=== PATIENT | male | born 1965 | race Caucasian/White ===

== ENCOUNTER → 2020-07-08 09:31 | Outpatient (BNVA) | payer MEDICARE, MEDICAID, SELFPAY | PROVIDERS: PCP Internal Medicine Medical Oncology; Visit Provider Internal Medicine Cardiovascular Disease | DX: I45.6 Pre-excitation syndrome (principal) | CPT/HCPCS: 93005; 99212 ==

== ENCOUNTER 2020-08-31 12:18 | Outpatient (REF) | payer MEDICARE, MEDICAID, SELFPAY ==
[2020-08-31 13:18] LABS: MANUAL DIFF FLAG NO
[2020-08-31 13:37] LABS: Basophils Percent Auto 0.4 % (0-2); Eosinophils Absolute Auto 0.1 X10*3/uL (0.0-0.4); Eosinophils Percent Auto 1.2 % (0-4); Hematocrit 47.8 % (42-52); Hemoglobin 16.1 g/dl (14.0-18.0); Imm Gran Abs Auto 0.04 X10*3/uL (0.00-0.03); Imm Gran Pct Auto 0.5 % (0.0-0.4); Lymphocytes Absolute Auto 2.2 X10*3/uL (1.2-4.9); Mean Corpuscular HGB Conc 33.7 g/dl (31.0-36.0); Mean Corpuscular Volume 89.2 fL (80-98); Mean Platelet Volume 10.8 fL (9.4-12.4); Monocytes Absolute Auto 0.7 X10*3/uL (0.1-1.2); Neutrophils Percent Auto 61.9 % (45-73); Platelet Count 190 X10*3/uL (160-400); Red Blood Count 5.36 X10*6/uL (4.60-5.80); Red Cell Distribution Width 12.1 % (11.0-16.0); White Blood Count 8.1 X10*3/uL (4.8-10.8)
[2020-08-31 14:12] LABS: Alanine Aminotransferase 14 U/L (0-40); Albumin Level 4.7 g/dL (3.5-5.0); Alkaline Phosphatase 82 U/L (39-117); Anion Gap 16 (12-20); Aspartate Amino Transferase 15 U/L (5-37); Bilirubin Total 2.1 mg/dL (0.0-1.0); Blood Urea Nitrogen 24 mg/dL (9-16); Calcium 9.5 mg/dL (8.4-10.2); Carbon Dioxide 27 mmol/L (22-29); Chloride 104 mmol/L (96-108); Cholesterol 181 mg/dL; Estimated Glomerular Filt Rate > 60; Glucose Fasting 86 mg/dL (60-99); HDL Cholesterol 55 mg/dL; LDL Cholesterol Calculated 106 mg/dl; Potassium 4.5 mmol/L (3.3-5.1); Sodium 142 mmol/L (135-145); Total Protein 6.8 g/dL (6.5-8.0); Triglycerides 100 mg/dL
== END 2020-08-31 12:19 | disposition home or self-care (01) ==
LOC: HO.LAB 12:18
PROVIDERS: PCP Internal Medicine Medical Oncology; Visit Provider Internal Medicine Medical Oncology
DX: E78.2 Mixed hyperlipidemia (principal); E66.3 Overweight
CPT/HCPCS: 36415; 80053; 80061; 85025

== ENCOUNTER 2020-12-30 11:49 | Outpatient (REF) | payer MEDICARE, MEDICAID, SELFPAY ==
[2020-12-30 12:56] LABS: MANUAL DIFF FLAG NO
[2020-12-30 13:07] LABS: Basophils Percent Auto 0.6 % (0-2); Eosinophils Absolute Auto 0.1 X10*3/uL (0.0-0.4); Eosinophils Percent Auto 1.6 % (0-4); Hemoglobin 13.8 g/dl (14.0-18.0); Imm Gran Abs Auto 0.02 X10*3/uL (0.00-0.03); Imm Gran Pct Auto 0.3 % (0.0-0.4); Lymphocytes Absolute Auto 2.2 X10*3/uL (1.2-4.9); Lymphocytes Percent Auto 31.9 % (20-40); Mean Corpuscular HGB Conc 32.9 g/dl (31.0-36.0); Mean Corpuscular Hemoglobin 29.5 pg (27.0-33.0); Mean Corpuscular Volume 89.7 fL (80-98); Mean Platelet Volume 10.7 fL (9.4-12.4); Monocytes Absolute Auto 0.8 X10*3/uL (0.1-1.2); Monocytes Percent Auto 11.3 % (2-11); Neutrophils Absolute Auto 3.7 X10*3/uL (2.0-8.3); Neutrophils Percent Auto 54.3 % (45-73); Platelet Count 192 X10*3/uL (160-400); Red Blood Count 4.68 X10*6/uL (4.60-5.80); Red Cell Distribution Width 12.4 % (11.0-16.0); White Blood Count 6.7 X10*3/uL (4.8-10.8)
[2020-12-30 13:33] LABS: Alanine Aminotransferase 18 U/L (0-40); Albumin Level 4.3 g/dL (3.5-5.0); Alkaline Phosphatase 76 U/L (39-117); Anion Gap 10 (12-20); Aspartate Amino Transferase 16 U/L (5-37); Bilirubin Total 1.2 mg/dL (0.0-1.0); Blood Urea Nitrogen 19 mg/dL (9-16); Calcium 9.1 mg/dL (8.4-10.2); Carbon Dioxide 28 mmol/L (22-29); Chloride 108 mmol/L (96-108); Cholesterol 146 mg/dL; Estimated Glomerular Filt Rate > 60; Glucose Fasting 92 mg/dL (60-99); HDL Cholesterol 46 mg/dL; LDL Cholesterol Calculated 87 mg/dl; Potassium 4.3 mmol/L (3.3-5.1); Sodium 142 mmol/L (135-145); Triglycerides 68 mg/dL
== END 2020-12-30 11:50 | disposition home or self-care (01) ==
LOC: HO.LAB 11:49
PROVIDERS: PCP Internal Medicine Medical Oncology; Visit Provider Internal Medicine Medical Oncology
DX: E78.2 Mixed hyperlipidemia (principal); E66.3 Overweight
CPT/HCPCS: 36415; 80053; 80061; 85025

== ENCOUNTER 2021-10-12 09:35 | Outpatient (REF) | payer MEDICARE, MEDICAID, SELFPAY ==
[2021-10-12 10:03] LABS: MANUAL DIFF FLAG NO
[2021-10-12 10:28] LABS: Basophils Percent Auto 0.3 % (0-2); Eosinophils Absolute Auto 0.1 X10*3/uL (0.0-0.4); Eosinophils Percent Auto 1.3 % (0-4); Hematocrit 46.4 % (42.0-52.0); Imm Gran Abs Auto 0.04 X10*3/uL (0.00-0.03); Imm Gran Pct Auto 0.6 % (0.0-0.4); Lymphocytes Absolute Auto 2.1 X10*3/uL (1.2-4.9); Lymphocytes Percent Auto 31.7 % (20-40); Mean Corpuscular HGB Conc 32.3 g/dl (31.0-36.0); Mean Corpuscular Volume 89.7 fL (80.0-98.0); Mean Platelet Volume 10.4 fL (9.4-12.4); Monocytes Absolute Auto 0.7 X10*3/uL (0.1-1.2); Monocytes Percent Auto 9.9 % (2-11); Neutrophils Absolute Auto 3.8 x10*3/uL (2.0-8.3); Neutrophils Percent Auto 56.2 % (45-73); Platelet Count 186 X10*3/uL (160-400); Red Blood Count 5.17 X10*6/uL (4.60-5.80); Red Cell Distribution Width 12.3 % (11.0-16.0); White Blood Count 6.7 X10*3/uL (4.8-10.8)
[2021-10-12 10:48] LABS: Alanine Aminotransferase 20 U/L (0-40); Albumin Level 4.4 g/dL (3.5-5.0); Alkaline Phosphatase 82 U/L (39-117); Anion Gap 13 (12-20); Aspartate Amino Transferase 20 U/L (5-37); Bilirubin Total 0.7 mg/dL (0.0-1.0); Blood Urea Nitrogen 27 mg/dL (9-16); Calcium 9.5 mg/dL (8.4-10.2); Carbon Dioxide 26 mmol/L (22-29); Chloride 104 mmol/L (96-108); Cholesterol 187 mg/dL; Estimated Glomerular Filt Rate > 60; Glucose Fasting 100 mg/dL (60-99); HDL Cholesterol 39 mg/dL; LDL Cholesterol Calculated 119 mg/dl; Potassium 4.6 mmol/L (3.3-5.1); Sodium 138 mmol/L (135-145); Total Protein 6.6 g/dL (6.5-8.0); Triglycerides 146 mg/dL
[2021-10-12 11:12] LABS: Free T4 (Free Thyroxine) 1.28 ng/dL (0.71-1.85); Prostate Specific Antigen 0.36 ng/mL (<0.05-4.0); Thyroid Stimulating Hormone 0.72 uIU/mL (0.32-4.0)
== END 2021-10-12 09:36 | disposition home or self-care (01) ==
LOC: HO.LAB 09:35
PROVIDERS: PCP Internal Medicine Medical Oncology; Visit Provider Internal Medicine Medical Oncology
DX: Z12.5 Encounter for screening for malignant neoplasm of prostate (principal); E78.2 Mixed hyperlipidemia; E66.3 Overweight
CPT/HCPCS: 36415; 80053; 80061; 84153; 84439; 84443; 85025

== ENCOUNTER 2022-02-22 10:15 | Outpatient (REF) | payer MEDICARE, MEDICAID, SELFPAY ==
[2022-02-22 13:46] LABS: MANUAL DIFF FLAG NO
[2022-02-22 14:03] LABS: Basophils Percent Auto 0.3 % (0-2); Eosinophils Absolute Auto 0.1 X10*3/uL (0.0-0.4); Eosinophils Percent Auto 1.4 % (0-4); Hematocrit 47.4 % (42.0-52.0); Hemoglobin 15.7 g/dl (14.0-18.0); Imm Gran Abs Auto 0.03 X10*3/uL (0.00-0.03); Imm Gran Pct Auto 0.4 % (0.0-0.4); Lymphocytes Absolute Auto 2.1 X10*3/uL (1.2-4.9); Lymphocytes Percent Auto 27.6 % (20-40); Mean Corpuscular HGB Conc 33.1 g/dl (31.0-36.0); Mean Corpuscular Hemoglobin 29.8 pg (27.0-33.0); Mean Corpuscular Volume 90.1 fL (80.0-98.0); Mean Platelet Volume 10.8 fL (9.4-12.4); Monocytes Absolute Auto 0.8 X10*3/uL (0.1-1.2); Monocytes Percent Auto 9.8 % (2-11); Neutrophils Absolute Auto 4.6 x10*3/uL (2.0-8.3); Neutrophils Percent Auto 60.5 % (45-73); Platelet Count 207 X10*3/uL (160-400); Red Blood Count 5.26 X10*6/uL (4.60-5.80); Red Cell Distribution Width 12.2 % (11.0-16.0); White Blood Count 7.6 X10*3/uL (4.8-10.8)
[2022-02-22 14:35] LABS: Alanine Aminotransferase 24 U/L (0-40); Albumin Level 4.6 g/dL (3.5-5.0); Alkaline Phosphatase 86 U/L (39-117); Anion Gap 16 (12-20); Aspartate Amino Transferase 18 U/L (5-37); Bilirubin Total 1.4 mg/dL (0.0-1.0); Blood Urea Nitrogen 20 mg/dL (9-16); Calcium 9.6 mg/dL (8.4-10.2); Carbon Dioxide 26 mmol/L (22-29); Chloride 104 mmol/L (96-108); Cholesterol 186 mg/dL; Estimated Glomerular Filt Rate > 60; Glucose Fasting 88 mg/dL (60-99); HDL Cholesterol 50 mg/dL; LDL Cholesterol Calculated 123 mg/dl; Sodium 141 mmol/L (135-145); Total Protein 6.7 g/dL (6.5-8.0); Triglycerides 68 mg/dL
== END 2022-02-22 10:16 | disposition home or self-care (01) ==
LOC: HO.10HDL 10:15
PROVIDERS: Visit Provider Internal Medicine Medical Oncology
DX: E78.2 Mixed hyperlipidemia (principal); K21.9 Gastro-esophageal reflux disease without esophagitis
CPT/HCPCS: 36415; 80053; 80061; 85025

== ENCOUNTER 2022-06-23 11:21 | Outpatient (REF) | payer MEDICARE, MEDICAID, SELFPAY ==
[2022-06-23 11:32] LABS: MANUAL DIFF FLAG NO
[2022-06-23 12:28] LABS: Basophils Percent Auto 0.4 % (0-2); Eosinophils Absolute Auto 0.1 X10*3/uL (0.0-0.4); Eosinophils Percent Auto 1.2 % (0-4); Hematocrit 49.2 % (42.0-52.0); Hemoglobin 16.3 g/dl (14.0-18.0); Imm Gran Abs Auto 0.02 X10*3/uL (0.00-0.03); Imm Gran Pct Auto 0.3 % (0.0-0.4); Lymphocytes Absolute Auto 2.1 X10*3/uL (1.2-4.9); Lymphocytes Percent Auto 30.9 % (20-40); Mean Corpuscular HGB Conc 33.1 g/dl (31.0-36.0); Mean Corpuscular Hemoglobin 29.7 pg (27.0-33.0); Mean Corpuscular Volume 89.8 fL (80.0-98.0); Mean Platelet Volume 10.4 fL (9.4-12.4); Monocytes Absolute Auto 0.7 X10*3/uL (0.1-1.2); Monocytes Percent Auto 10.7 % (2-11); Neutrophils Absolute Auto 3.9 x10*3/uL (2.0-8.3); Neutrophils Percent Auto 56.5 % (45-73); Platelet Count 205 X10*3/uL (160-400); Red Blood Count 5.48 X10*6/uL (4.60-5.80); Red Cell Distribution Width 12.3 % (11.0-16.0); White Blood Count 6.9 X10*3/uL (4.8-10.8)
[2022-06-23 12:44] LABS: Alanine Aminotransferase 23 U/L (0-40); Albumin Level 4.6 g/dL (3.5-5.0); Alkaline Phosphatase 86 U/L (39-117); Anion Gap 13 (12-20); Aspartate Amino Transferase 19 U/L (5-37); Bilirubin Total 2.2 mg/dL (0.0-1.0); Blood Urea Nitrogen 22 mg/dL (9-16); Calcium 9.6 mg/dL (8.4-10.2); Carbon Dioxide 29 mmol/L (22-29); Chloride 104 mmol/L (96-108); Cholesterol 198 mg/dL; Estimated Glomerular Filt Rate > 60; Glucose Fasting 93 mg/dL (60-99); HDL Cholesterol 57 mg/dL; LDL Cholesterol Calculated 125 mg/dl; Potassium 4.5 mmol/L (3.3-5.1); Sodium 141 mmol/L (135-145); Total Protein 6.5 g/dL (6.5-8.0); Triglycerides 84 mg/dL
== END 2022-06-23 11:22 | disposition home or self-care (01) ==
LOC: HO.LAB 11:21
PROVIDERS: PCP Internal Medicine Medical Oncology; Visit Provider Internal Medicine Medical Oncology
DX: E78.2 Mixed hyperlipidemia (principal)
CPT/HCPCS: 36415; 80053; 80061; 85025

== ENCOUNTER 2022-11-08 12:05 | Outpatient (REF) | payer MEDICARE, MEDICAID, SELFPAY ==
[2022-11-08 12:20] LABS: MANUAL DIFF FLAG NO
[2022-11-08 12:59] LABS: Basophils Percent Auto 0.2 % (0-2); Eosinophils Absolute Auto 0.1 X10*3/uL (0.0-0.4); Eosinophils Percent Auto 0.9 % (0-4); Hematocrit 43.2 % (42.0-52.0); Hemoglobin 14.3 g/dl (14.0-18.0); Imm Gran Abs Auto 0.07 X10*3/uL (0.00-0.03); Imm Gran Pct Auto 0.7 % (0.0-0.4); Lymphocytes Absolute Auto 2.4 X10*3/uL (1.2-4.9); Lymphocytes Percent Auto 25.1 % (20-40); Mean Corpuscular HGB Conc 33.1 g/dl (31.0-36.0); Mean Corpuscular Hemoglobin 29.9 pg (27.0-33.0); Mean Corpuscular Volume 90.2 fL (80.0-98.0); Mean Platelet Volume 10.5 fL (9.4-12.4); Monocytes Percent Auto 10.2 % (2-11); Neutrophils Percent Auto 62.9 % (45-73); Platelet Count 230 X10*3/uL (160-400); Red Blood Count 4.79 X10*6/uL (4.60-5.80); Red Cell Distribution Width 12.5 % (11.0-16.0); White Blood Count 9.5 X10*3/uL (4.8-10.8)
[2022-11-08 13:27] LABS: Alanine Aminotransferase 17 U/L (0-40); Albumin Level 4.3 g/dL (3.5-5.0); Alkaline Phosphatase 76 U/L (39-117); Anion Gap 13 (12-20); Aspartate Amino Transferase 16 U/L (5-37); Bilirubin Total 1.4 mg/dL (0.0-1.0); Blood Urea Nitrogen 22 mg/dL (9-16); Calcium 9.3 mg/dL (8.4-10.2); Carbon Dioxide 28 mmol/L (22-29); Chloride 111 mmol/L (96-108); Cholesterol 162 mg/dL; Estimated Glomerular Filt Rate > 60; Glucose Fasting 82 mg/dL (60-99); HDL Cholesterol 45 mg/dL; LDL Cholesterol Calculated 101 mg/dl; Potassium 3.8 mmol/L (3.3-5.1); Sodium 148 mmol/L (135-145); Total Protein 6.2 g/dL (6.5-8.0); Triglycerides 81 mg/dL
== END 2022-11-08 12:06 | disposition home or self-care (01) ==
LOC: HO.LAB 12:05
PROVIDERS: PCP Internal Medicine Medical Oncology; Visit Provider Internal Medicine Medical Oncology
DX: E78.2 Mixed hyperlipidemia (principal); K21.9 Gastro-esophageal reflux disease without esophagitis; E66.3 Overweight
CPT/HCPCS: 36415; 80053; 80061; 85025

== ENCOUNTER 2023-04-03 15:18 | Outpatient (REF) | payer MEDICARE, MEDICAID, SELFPAY ==
[2023-04-03 15:41] LABS: MANUAL DIFF FLAG NO
[2023-04-03 15:57] LABS: Basophils Percent Auto 0.6 % (0-2); Eosinophils Percent Auto 0.6 % (0-4); Hematocrit 46.5 % (42.0-52.0); Hemoglobin 15.5 g/dl (14.0-18.0); Imm Gran Abs Auto 0.04 X10*3/uL (0.00-0.03); Imm Gran Pct Auto 0.6 % (0.0-0.4); Lymphocytes Absolute Auto 1.9 X10*3/uL (1.2-4.9); Lymphocytes Percent Auto 29.7 % (20-40); Mean Corpuscular HGB Conc 33.3 g/dl (31.0-36.0); Mean Corpuscular Hemoglobin 29.8 pg (27.0-33.0); Mean Corpuscular Volume 89.3 fL (80.0-98.0); Mean Platelet Volume 10.6 fL (9.4-12.4); Monocytes Absolute Auto 0.7 X10*3/uL (0.1-1.2); Monocytes Percent Auto 10.3 % (2-11); Neutrophils Absolute Auto 3.7 x10*3/uL (2.0-8.3); Neutrophils Percent Auto 58.2 % (45-73); Platelet Count 180 X10*3/uL (160-400); Red Blood Count 5.21 X10*6/uL (4.60-5.80); Red Cell Distribution Width 12.4 % (11.0-16.0); White Blood Count 6.3 X10*3/uL (4.8-10.8)
[2023-04-03 16:29] LABS: Alanine Aminotransferase 16 U/L (0-40); Albumin Level 4.5 g/dL (3.5-5.0); Alkaline Phosphatase 86 U/L (39-117); Aspartate Amino Transferase 16 U/L (5-37); Bilirubin Direct 0.3 mg/dL (0.0-0.5); Bilirubin Total 0.9 mg/dL (0.0-1.0); C Reactive Protein 0.26 mg/dL (< or = 0.50); Total Protein 6.8 g/dL (6.5-8.0)
[2023-04-03 16:43] LABS: Thyroid Stimulating Hormone 1.38 uIU/mL (0.32-4.0)
[2023-04-03 17:01] LABS: Erythrocyte Sedimentation Rate 1 MM/HR (0-15)
[2023-04-04 13:56] LABS: Leukocytes Stool Qualitative NEGATIVE (NEGATIVE)
[2023-04-04 15:28] LABS: TSH reflex Free T4 1.36 uIU/mL (0.32-4.0)
[2023-04-04 15:32] LABS: CDiff Gene PCR NEGATIVE (Negative)
[2023-04-05 22:39] LABS: Gliadin Deamidated IgA Ab <1.0 U/mL; Gliadin Deamidated IgG Ab 3.4 U/mL; Transglutaminase Ab IgG <1.0 U/mL; Transglutaminase IgA <1.0 U/mL
[2023-04-07 12:38] LABS: Endomysial IgA Antibody Negative (Negative)
[2023-04-10 10:29] LABS: Immunoglobulin A <5 mg/dL (47-310)
[2023-04-10 21:03] LABS: Calprotectin, Fecal 2780 mcg/g
== END 2023-04-03 15:19 | disposition home or self-care (01) ==
LOC: HO.LAB 15:18
PROVIDERS: PCP Internal Medicine; Visit Provider Internal Medicine
DX: R19.4 Change in bowel habit (principal); R19.7 Diarrhea, unspecified
CPT/HCPCS: 36415; 80076; 82784; 83993; 84443; 85025; 85652; 86140; 86231; 86258; 86364; 87493; 87507; 89055

== ENCOUNTER 2023-04-10 13:42 | Outpatient (REF) | payer MEDICARE, MEDICAID, SELFPAY ==
[2023-04-10 15:14] LABS: Adenovirus F 40/41 Not Detected (Not Detect.); Astrovirus Not Detected (Not Detect.); Cryptosporidium Not Detected (Not Detect.); Cyclospora cayetanensis Not Detected (Not Detect.); E. coli EAEC Not Detected (Not Detect.); E. coli EPEC Detected (Not Detect.); E. coli ETEC Not Detected (Not Detect.); E. coli STEC Not Detected (Not Detect.); Entamoeba histolytica Not Detected (Not Detect.); Giardia lamblia Not Detected (Not Detect.); Norovirus GI/GII Not Detected (Not Detect.); Plesiomonas shigelloides Not Detected (Not Detect.); Rotavirus A Not Detected (Not Detect.); Salmonella Not Detected (Not Detect.); Sapovirus Not Detected (Not Detect.); Shigella sp./EIEC Not Detected (Not Detect.); Vibrio Not Detected (Not Detect.); Vibrio Cholerae Not Detected (Not Detect.); Yersinia enterocolitica Not Detected (Not Detect.)
[2023-04-10 15:26] LABS: Campylobacter Detected (Not Detect.)
[2023-04-10 17:01] LABS: CDiff Gene PCR NEGATIVE (Negative)
[2023-04-10 17:41] LABS: Leukocytes Stool Qualitative NEGATIVE (NEGATIVE)
[2023-04-14 21:59] LABS: Calprotectin, Fecal 946 mcg/g
== END 2023-04-10 13:43 | disposition home or self-care (01) ==
LOC: HO.LNP 13:42
PROVIDERS: Visit Provider Internal Medicine
DX: R19.4 Change in bowel habit (principal); R19.7 Diarrhea, unspecified
CPT/HCPCS: 83993; 85048; 87493; 87507; 89055

== ENCOUNTER → 2023-04-26 13:07 | Outpatient (REF) | payer MEDICARE, MEDICAID, SELFPAY ==
--- NOTE | 2023-04-26 13:12 | ECG_ITS ---
Test Reason : prolonged qt Blood Pressure : / mmHG Vent. Rate : 085 BPM Atrial Rate : 085 BPM P-R Int : 146 ms QRS Dur : 084 ms QT Int : 362 ms P-R-T Axes : 074 032 036 degrees QTc Int : 430 ms Normal sinus rhythm Increased R/S ratio in V1, consider early transition or posterior infarct Abnormal ECG No previous ECGs available Referred By: Nicola Magana Electronically Signed By:SYEDA DELGADO MD
== END ==
LOC: HO.CARD 13:07
PROVIDERS: PCP Internal Medicine Medical Oncology; Visit Provider Internal Medicine Medical Oncology
DX: R94.31 Abnormal electrocardiogram [ECG] [EKG] (principal)
CPT/HCPCS: 93005

== ENCOUNTER 2023-04-30 12:22 | Day surgery (SDC) | payer MEDICARE, MEDICAID, SELFPAY ==
[2023-04-26 11:31] VITALS: BMI 28.6
--- NOTE | 2023-04-27 13:35 | P.CONAN_ITS ---
Documented by User: Petra Roman NP 04/27/23 13:36 HPI - Anesthesia Eval Consult details Narrative: 57yo M for Upper Endoscopy and Colonoscopy WPW PMFSH Active Problems Active Problems: All Active Problems (Updated 04/25/23 @ 20:53 by Emma Joel RN) WPW (Rvtmh-Zxykkwbza-Xfebl syndrome) (Acute) Past Medical History Medical History Prieto esophagus Anxiety Cognitive impairment, mild, so stated Hyperlipemia Hiatal hernia with GERD WPW (Drgqx-Oxfzdwtmn-Yrdqd syndrome) Family History Family History (Updated 07/07/20 @ 10:15 by CHEYENNE Nichols) Father No problems noted. Mother No problems noted. Surgical History Surgical History History of esophagogastroduodenoscopy (EGD) History of eyelid surgery History of bunionectomy History of tonsillectomy and adenoidectomy Social History (Updated 07/08/20 @ 09:39 by CHEYENNE Nichols) Patient Tobacco Use Status: Never used Tobacco Are you DNR?: No Advance Directives: No Advance Directives Information Provided: Yes Meds Allergies Allergy/AdvReac Type Severity Reaction Status Date / Time No Known Allergies Allergy Verified 04/30/23 12:33 [No Known Allergies*] Home Medications Medication Instructions Recorded Confirmed Last Taken Type omeprazole 20 mg capsule,delayed 20 mg PO DAILY 07/08/20 04/25/23 04/30/23 History release simvastatin 10 mg tablet 10 mg PO DAILY 07/08/20 04/30/23 04/30/23 History triamcinolone acetonide 0.5 % appl topical DAILY 07/08/20 Unknown History topical cream quetiapine 100 mg tablet 100 mg PO DAILY 04/25/23 04/30/23 04/30/23 History Exam Height,Weight and Vital Signs: Height 5 ft 9 in Weight 87.997 kg Pertinent Lab Results Pertinent Lab Results: Laboratory Tests 11/08/22 11/08/22 11/08/22 12:19 12:19 12:19 WBC Hgb Hct Plt Count Sodium 148 H Potassium 3.8 Chloride 111 H Carbon Dioxide 28 BUN 22 H Creatinine 0.81 04/03/23 04/03/23 04/03/23 15:38 15:38 15:38 WBC 6.3 Hgb 15.5 Hct 46.5 Plt Count 180 Sodium Potassium Chloride Carbon Dioxide BUN Creatinine Narrative Narrative: EKG 04/2023 Vent. Rate : 085 BPM Atrial Rate : 085 BPM P-R Int : 146 ms QRS Dur : 084 ms QT Int : 362 ms P-R-T Axes : 074 032 036 degrees QTc Int : 430 ms Normal sinus rhythm Increased R/S ratio in V1, consider early transition or posterior infarct Abnormal ECG No previous ECGs available Assessment and Plan Assessment Anesthesia Assessment: Chart Reviewed Documented by User: Paulie Nguyen MD 05/03/23 16:39 HPI - Anesthesia Eval Consult details Narrative: 57yo M for Upper Endoscopy and Colonoscopy WPW Saw cardiology in the past , as per cardiology no intervention at that time patient asymptomatic . [facility] Past Medical History Medical History Prieto esophagus Anxiety Cognitive impairment, mild, so stated Hyperlipemia Hiatal hernia with GERD WPW (Srvtm-Orhntqmka-Xqkzc syndrome) Family History Family History (Updated 07/07/20 @ 10:15 by CHEYENNE Nichols) Father No problems noted. Mother No problems noted. Family history of problems with anesthesia: No Surgical History Surgical History History of esophagogastroduodenoscopy (EGD) History of eyelid surgery History of bunionectomy History of tonsillectomy and adenoidectomy History of Problems with Anesthesia: No Social History (Updated 07/08/20 @ 09:39 by CHEYENNE Nichols) Patient Tobacco Use Status: Never used Tobacco Are you DNR?: No Advance Directives: No Advance Directives Information Provided: Yes Meds Allergies Allergy/AdvReac Type Severity Reaction Status Date / Time No Known Allergies Allergy Verified 04/30/23 12:33 [No Known Allergies*] Home Medications Medication Instructions Recorded Confirmed Last Taken Type omeprazole 20 mg capsule,delayed 20 mg PO DAILY 07/08/20 04/25/23 04/30/23 History release simvastatin 10 mg tablet 10 mg PO DAILY 07/08/20 04/30/23 04/30/23 History triamcinolone acetonide 0.5 % appl topical DAILY 07/08/20 Unknown History topical cream quetiapine 100 mg tablet 100 mg PO DAILY 04/25/23 04/30/23 04/30/23 History Exam Airway Mallampati Class: IV Loose/Missing/Broken Teeth: Yes Assessment and Plan Assessment Anesthesia Assessment: Anesthesia Plan Discussed Final Anesthetic Review Family History of Problems with Anesthesia: No History of Problems with Anesthesia: No NPO: Yes ASA Class: III Final Preanesthetic Review: Meds/Allgs Chart Reviewed, Consent Obtained/Reviewed and Anes Risks/Benef Reviewed Patient Risk: Intermediate Procedure Risk: Intermediate Anesthetic Plan Anesthetic Plan: MAC: and Agree w/ Assess. and Plan Disposition: Standard PACU
[2023-04-30 12:26] VITALS: BMI 28.1
[2023-04-30] MEDS: Lactated Ringers 1,000 ML 100 ML IVCONT (12:48)
[2023-04-30 12:58] VITALS: BP 117/83; PULSE 92; RESP 16; TEMP 36.1; O2SAT 99
--- NOTE | 2023-04-30 14:45 | PC.NURSE ---
Report given to Luis ANNE (PACU)
[2023-04-30 16:17] VITALS: BP 113/72; PULSE 99; RESP 15; TEMP 36.4; O2SAT 98
--- NOTE | 2023-04-30 16:18 | PM.OP ---
Brief Operative Note Date of Service: 04/30/23 Pre-op diagnosis: Prieto's, Diarrhea Post-op diagnosis: other (Same, Hiatal hernia, R/O Celiac disease, R/O microscopic colitis) Procedure: EGD with biopsies, Colonoscopy to the cecum and TI with biopsies Surgeon: Nicloa Mandujano MD Anesthesia: MAC Was an Regulatory Affairs Analyst used for this Procedure?: No Estimated blood loss (mL): 2.0 Pathology: other (A. Descending duodenum B. EG Junction at 37cm C. Ascending colon D. Descending colon) Condition: stable Disposition: PACU
[2023-04-30 16:29] VITALS: BP 118/86; PULSE 99; RESP 16; TEMP 36.3; O2SAT 97
--- NOTE | 2023-05-01 01:25 | OP_ITS ---
DATE OF SERVICE: 04/30/2023 SURGEON: Nicola Mandujano MD INDICATIONS: The patient presents for evaluation of gastroesophageal reflux, Prieto's esophagus, and previous diarrhea. Full consent has been obtained from him for this, including risks of bleeding and perforation. PREOPERATIVE DIAGNOSIS: Gastroesophageal reflux, Prieto's esophagus, diarrhea. POSTOPERATIVE DIAGNOSIS: Gastroesophageal reflux, Prieto's esophagus, diarrhea, hiatal hernia, rule out celiac disease, rule out microscopic colitis, sigmoid diverticulosis, and internal hemorrhoids. PROCEDURE PERFORMED: Esophagogastroduodenoscopy with biopsies, and colonoscopy to the cecum and terminal ileum with biopsies. ESTIMATED BLOOD LOSS: COMPLICATIONS: ANESTHESIA: Medication Used: Monitored anesthesia care. ASSISTANTS: SPECIMENS: DESCRIPTION OF PROCEDURE: The patient was placed in the left lateral decubitus position. The Olympus video gastroscope was passed in the posterior oropharynx and upper esophagus under direct vision. The scope was passed slowly to the distal esophagus. The gastroesophageal junction appeared at 37 cm. There was evidence of small, less than 1 cm, areas of Prieto's mucosa. There was no esophagitis nor any lesions. The scope entered the stomach. There was a small hiatal hernia. The scope was advanced to pylorus and the duodenum was cannulated to the descending portion. The duodenum including the bulb appeared normal without mass or ulceration. Biopsies were obtained from the descending duodenum. The scope was withdrawn back in the stomach. The gastric antrum and body appeared normal with good peristalsis. There was no sign of any gastritis nor ulcer disease. The scope was retroflexed, visualizing the proximal stomach carefully, which appeared normal, without mass or ulceration. The scope was straightened and withdrawn back into the esophagus. Multiple biopsies were obtained at the EG junction at 37 cm. Proximal to this, the esophageal mucosa appeared normal. The scope was withdrawn from the patient. He was turned around for the colonoscopy. The digital rectal exam revealed no abnormalities. The Olympus video pediatric colonoscope was entered into the rectum and advanced easily to the cecum. Once in the cecum, I did identify normal-appearing cecal pouch with appendiceal orifice and a normal-appearing ileocecal valve. The terminal ileum was cannulated and appeared normal. Scope was withdrawn back in the colon. The entire cecum and ileocecal valve appeared normal. The scope was slowly withdrawn assessing all mucosal surfaces carefully. Preparation was excellent. I did not visualize any sign of polyps, colitis, nor angiodysplasia. There was a mild amount of sigmoid diverticulosis. Random biopsies were obtained in the ascending and descending colon. In the rectum, scope was retroflexed, visualizing internal hemorrhoids, but no other pathology. The rectal mucosa appeared normal. The scope was straightened and withdrawn from the patient. He tolerated both procedures well and was returned to the recovery area in stable condition. IMPRESSION: 1. History of Prieto's esophagus, rule out dysplasia. 2. Rule out celiac disease. 3. Hiatal hernia. 4. Rule out microscopic colitis. 5. Diverticulosis. 6. Internal hemorrhoids. PLAN: The results of the biopsies will be checked. He was advised not to use any aspirin and NSAIDs for 1 week. He was advised to continue his daily omeprazole, as he does report that is working well for him in regard to his reflux. Given the family history of colon cancer in at least two aunts at relatively young ages, I would recommend a repeat colonoscopy in 5 years. I would also recommend a repeat upper endoscopy at that time as well in regard to the smaller area of Prieto's esophagus. He was advised not to use any aspirin or NSAIDs for 1 week. In regard to the previous diarrhea, he does report that has completely resolved after the 3-day course of azithromycin for a treatment of the positive GI panel for Campylobacter. He reports that he is no longer having any significant diarrhea nor urgency. Therefore, at this point, he will see me on a p.r.n. basis. This has been discussed with his mother. MD NAGI Chvaez/ENOCH / [phone] STAR
== END 2023-04-30 16:50 | disposition home or self-care (01) ==
PROVIDERS: PCP Internal Medicine Medical Oncology; Visit Provider Internal Medicine
PROC: (CPT 43239; principal; 2023-04-30 13:50)
DX: K22.70 Barrett's esophagus without dysplasia (principal); K44.9 Diaphragmatic hernia without obstruction or gangrene; K21.9 Gastro-esophageal reflux disease without esophagitis; R19.4 Change in bowel habit; R19.5 Other fecal abnormalities; K57.30 Diverticulosis of large intestine without perforation or abscess without bleeding; K64.8 Other hemorrhoids; E78.5 Hyperlipidemia, unspecified; I45.6 Pre-excitation syndrome; G31.84 Mild cognitive impairment of uncertain or unknown etiology; Z79.899 Other long term (current) drug therapy
CPT/HCPCS: 43239; 45380; 88305; 88307; J2704; J3010

== ENCOUNTER 2023-05-26 19:53 | Emergency (ER) | payer MEDICARE, MEDICAID, SELFPAY ==
[2023-05-26 20:07] VITALS: BP 172/100; PULSE 111; O2SAT 97
[2023-05-26 20:11] VITALS: BMI 35.0
[2023-05-26 20:36] VITALS: BP 139/91; PULSE 99; RESP 16; TEMP 36.7; O2SAT 97
[2023-05-26 21:10] LABS: MANUAL DIFF FLAG NO
--- NOTE | 2023-05-26 21:12 | MHC.EDTECH ---
Brought patient a pitcher with apple juice and a few kya crackers.
[2023-05-26 21:20] LABS: Basophils Percent Auto 0.2 % (0-2); Eosinophils Absolute Auto 0.1 X10*3/uL (0.0-0.4); Eosinophils Percent Auto 0.8 % (0-4); Hematocrit 43.1 % (42.0-52.0); Hemoglobin 14.8 g/dl (14.0-18.0); Imm Gran Abs Auto 0.03 X10*3/uL (0.00-0.03); Imm Gran Pct Auto 0.3 % (0.0-0.4); Lymphocytes Absolute Auto 1.9 X10*3/uL (1.2-4.9); Lymphocytes Percent Auto 19.6 % (20-40); Mean Corpuscular HGB Conc 34.3 g/dl (31.0-36.0); Mean Corpuscular Hemoglobin 29.8 pg (27.0-33.0); Mean Corpuscular Volume 86.7 fL (80.0-98.0); Mean Platelet Volume 10.5 fL (9.4-12.4); Monocytes Absolute Auto 0.9 X10*3/uL (0.1-1.2); Neutrophils Absolute Auto 6.7 x10*3/uL (2.0-8.3); Neutrophils Percent Auto 70.1 % (45-73); Platelet Count 199 X10*3/uL (160-400); Red Blood Count 4.97 X10*6/uL (4.60-5.80); Red Cell Distribution Width 12.6 % (11.0-16.0); White Blood Count 9.5 X10*3/uL (4.8-10.8)
[2023-05-26 21:27] LABS: Alanine Aminotransferase 24 U/L (0-40); Albumin Level 4.3 g/dL (3.5-5.0); Alkaline Phosphatase 92 U/L (39-117); Anion Gap 15 (12-20); Aspartate Amino Transferase 22 U/L (5-37); Bilirubin Total 0.7 mg/dL (0.0-1.0); Blood Urea Nitrogen 26 mg/dL (9-16); Calcium 9.4 mg/dL (8.4-10.2); Carbon Dioxide 24 mmol/L (22-29); Chloride 109 mmol/L (96-108); Creatinine Clr Calc Pharmacy 97.7; Estimated Glomerular Filt Rate > 60; Glucose Random 101 mg/dL (60-115); Sodium 144 mmol/L (135-145); Total Protein 6.6 g/dL (6.5-8.0)
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
[2023-05-26 21:46] LABS: Ethanol < 10 mg/dL
[2023-05-26 22:08] LABS: Amphetamine Screen Urine Not Detected (Not Detect); Barbiturates, Urine Not Detected (Not Detect); Benzodiazepines Screen Urine Not Detected (Not Detect); Cannabinoid Screen Urine Not Detected (Not Detect); Cocaine Screen Urine Not Detected (Not Detect); Fentanyl, urine Not Detected (Not Detect); Opiate Screen Urine Not Detected (Not Detect); Phencyclidine Screen Urine Not Detected (Not Detect)
[2023-05-27 06:42] VITALS: BP 142/87; PULSE 96; RESP 14; TEMP 36.4; O2SAT 98
--- NOTE | 2023-05-27 12:26 | PC.NURSE ---
pt seen by Care Team. he denies SI/HI at this time, 1:1 sitter at bedside. will continue to observe.
[2023-05-27] MEDS: Acetaminophen 325 MG TABLET 650 MG PO (13:14)
--- NOTE | 2023-05-27 13:16 | PC.NURSE ---
pt requested medication for 5/10 headache. tylenol given as documented. 1:1 sitter at bedside. pt denies si/hi. pt eating lunch at this time.
--- NOTE | 2023-05-27 13:52 | MHC.EDTECH ---
Gave patient warm blanket.
--- NOTE | 2023-05-27 13:53 | MHC.EDTECH ---
Brought patient snack and tami christopher.
--- NOTE | 2023-05-27 14:29 | PC.NURSE ---
pt cleared by Care Team and is now Case Management. pt aware of plan
--- NOTE | 2023-05-27 16:00 | PC.NURSE ---
pt cleared for discharge, his clothes returned to him, and he was picked up by his stepmother.
--- NOTE | 2023-05-27 16:13 | MHC.CM.PN ---
CM RECEIVED A CONSULT AND SPOKE TO ED PROVIDER WHO INDICATED THE PSYCHIATRIST FELT IT WOULD BE BENEFICIAL TO SPEAK WITH THE FAMILY ABOUT GUARDIANSHIP AND OTHER RESOURCES. THERESA CALLED PTS MOTHER, JEANNIE [phone] WHO REPORTED SHE HAD GUARDIANSHIP OVER HER DAUGHTER WHO IS DEAF AND BLIND AND HER WOULD TAKE GUARDIANSHIP OVER THE PT IF HE WERE TO BE DEEMED INCAPACITATED, HOWEVER HE IS NOT. SHE REPORTS THE PT WAS CONNECTED WITH [facility] WHEN HE WAS YOUNGER, HOWEVER REFUSED TO PARTICIPATE IN ANY OF THEIR PROGRAMS SO WAS DISCHARGED. SHE REPORTS THEY CAN RESUME SERVICES IF PT EVER NEEDED THEM OR AGREED TO USE SERVICES. JEANNIE REPORTS THEY DO KNOW THE RESOURCES AND STEPS TO GET GUARDIANSHIP, SHE SAYS THE PT HAS USED SI A [place] BEFORE WHEN HE DOES NOT GET HIS WAY AND SHE TOLD HIM IF HE SAID IT AGAIN THEY WOULD CALL EMS. SHE SAYS SHE IS MORE CONCERNED ABOUT AN UPDATE FROM A PSYCH PROVIDER OR THE CRISIS TEAM. SHE WAS INFORMED THEY WOULD UPDATE HER. JEANNIE'S REQUEST FOR UPDATES FROM PROVIDERS WAS SENT TO THE ED
== END 2023-05-27 16:03 | disposition home or self-care (01) ==
PROVIDERS: Emergency Provider Emergency Medicine
DX: R45.851 Suicidal ideations (principal); F41.9 Anxiety disorder, unspecified; G31.84 Mild cognitive impairment of uncertain or unknown etiology; R51.9 Headache, unspecified; E78.5 Hyperlipidemia, unspecified; I45.6 Pre-excitation syndrome; Z79.02 Long term (current) use of antithrombotics/antiplatelets; Z79.899 Other long term (current) drug therapy
CPT/HCPCS: 36415; 80053; 80307; 85025; 99285; S9485

== ENCOUNTER → 2024-01-30 08:37 | Outpatient (REF) | payer MEDICARE, MEDICAID, SELFPAY ==
--- NOTE | 2024-01-30 08:43 | CA_ITS ---
Transthoracic Echocardiogram Patient (Last, First, Middle): Bridger Castaneda R Gender: Male Date of : 1965 Age: 58 Procedure Date: 01/30/2024 Procedure Type: Transthoracic Echocardiogram Location: OP Height: 175.26 cm Weight: 96.62 kg BSA: 2.12 m2 Heart Rate: bpm BP: 132 / 90 mmHg Ui Software Engineer: JEANNIE Referring MD: Nicola Magana MD Burning Machine Operator: Rohan Burns MD Symptoms: R07.9 CHEST PAIN Study Quality: Fair ECG Rhythm: Sinus Conclusions: - Essentially normal study Findings Left Ventricle Normal left ventricular size, thickness, and systolic function. The visually estimated ejection fraction is between 60-65%. Spectral Doppler is indicative of a normal filling pattern. Right Ventricle Normal right ventricular cavity size and systolic function. Atria Both atria are normal in size. There is no evidence of interatrial shunt. Aortic Valve Normal aortic valve structure and function. There is no aortic valve stenosis. There is no aortic valve regurgitation. Mitral Valve Normal mitral valve structure and function. There is trace mitral valve regurgitation. There is no mitral valve stenosis. Pulmonic Valve The pulmonic valve is likely normal. Tricuspid Valve Normal tricuspid valve structure. There is trace tricuspid valve regurgitation. The right ventricular systolic pressure is normal. The right ventricular systolic pressure is 14 mmHg. Normal right atrial pressure. There is no evidence of pulmonary hypertension. Great Vessels All visible segments of the aorta are normal in size. The pulmonary artery was not well visualized. Venous The inferior vena cava is normal in size and collapses greater than 50% with inspiration. Pericardium/Pleural There is no evidence of pericardial effusion. Prior Study Comparison No prior study available for comparison. Measurements 2D Linear Measurements IVSd: 1.02 0.6-0.9/0.6-1.0 cm LVIDd: 4.49 3.9-5.3/4.2-5.9 cm LVIDd Index: 2.12 2.4-3.2/2.2-3.1 cm/m2 LVIDs: 2.64 2.0-3.6 cm LVPWd: 0.80 0.7-1.1 cm LA Diam: 3.40 2.7-3.8/3.0-4.0 cm LAIDs Index: 1.60 1.5-2.3 cm/m2 LV Mass: 167.52 67-162/88-224 g LV Mass Index: 79.02 43-95/49-115 g/m2 LVOT Diam: 2.30 3.0+(-)1.3 cm 2D Systolic Function EF 4C: 63.20 >55% EF 2C: 64.30 >55% EF BiP: 63.50 >55% Mitral Valve MV Pk E: 0.69 MV PK A: 0.56 MV Decel Time: 283.00 E/A: 1.20 E'Lateral: 10.00 E'Medial: 5.77 E/E' Med: 12.00 E/E' Lat: 6.90 PHT: 83.00 MVA PHT: 2.65 Decel [place]: 2.46 Aortic Valve AoV Pk Ercik: 1.18 AoV Mn Erick: 0.79 AoV VTI: 0.22 AoV Pk Grad: 6.00 Aov Mn Grad: 3.00 CORRINA Cont.VTI: 4.08 LVOT LVOT Pk Erick: 1.03 LVOT Mn Erick: 0.64 LVOT VTI: 0.22 LVOT Pk Grad: 4.00 LVOT Mn Grad: 2.00 LVOT Diam: 2.30 LVOT Area: 4.15 Diastolic Function MV Pk E: 0.69 MV Pk A: 0.56 E/A: 1.20 E'Medial: 5.77 E/E' Med: 12.00 E' Laterial: 10.00 E/E' Lat: 6.90 Right Ventricle TAPSE (mm): 23.50 TVS' Erick: 10.70 Tricuspid Valve TR Pk Erick: 1.63 TR Pk Grad: 11.00 RA Press: 3.00 RVSP: 14.00 Great Vessels Aorta Sinus of Valsalva: 2.94 2.0-3.[address] [place]: 2.64 1.7-3.4 cm Ao Asc: 3.20 2.1-3.4 cm Updated in Other Vendor System with Status of Final Rohan Burns MD electronically signed on 01/30/2024 1:50:52 PM with status of Final
--- NOTE | 2024-01-30 08:44 | CA_ITS ---
Acquisition Time: 2024-01-30 09:57:35 Total Exercise Time: 00:05:02 Test Indications: CP Medications: TRAZADONE APRAZOLOL SIMVASTATIN QUETIAPINE Protocol: RACHANA Max HR: 141 BPM 85% of Pred: 164 BPM Max BP: 150/090 mmHG Max Work Load: 6.7 METS Exercise stress test exercise 5 min 2 sec of Rachana protocol 85% MPHR, with mild to moderate SOB, no chest discomfort, without arrhythmias, with normotensive response to exercise, without EKG changes, Patient reports feeling well. Test reviewed with Dr. Velasco. Referred By: Nicola Magana Overread By: Lisbet Moreira
== END ==
LOC: HO.CARD 08:37
PROVIDERS: PCP Internal Medicine Medical Oncology; Visit Provider Internal Medicine Medical Oncology
DX: R07.9 Chest pain, unspecified (principal)
CPT/HCPCS: 93017; 93306

== ENCOUNTER → 2024-01-30 08:43 | Outpatient (BNV) | payer MEDICARE, MEDICAID, SELFPAY | PROVIDERS: PCP Internal Medicine Medical Oncology; Visit Provider Internal Medicine Cardiovascular Disease | DX: R07.9 Chest pain, unspecified (principal) | CPT/HCPCS: 93016; 93018; 93320; 93325; 93350 ==

== ENCOUNTER 2024-03-19 11:18 | Outpatient (AMB) | payer MEDICARE, MEDICAID, SELFPAY ==
--- NOTE | 2024-03-19 11:33 | MHC.OFFVIS ---
Vital Signs 03/19/24 11:34 Height 5 ft 8 in Weight 213 lb BMI 32.4 BP 132/84 Blood Pressure Location Rt brachial Position Sitting Pulse Oximetry (%) 98 Oxygen Delivery Method Room Air Intake Visit Reasons: Shortness of breath Allergies No Known Allergies [No Known Allergies*] Allergy (Verified 03/19/24 11:38) HPI HPI Shortness of breath: Details: 58-year-old gentleman with underlying IgE deficiency referred for evaluation of possible sleep apnea symptoms. Patient states that he has been observed snoring and stopping breathing while sleeping. He also endorses waking up feeling very tired. [facility] Medical History Prieto esophagus Anxiety Cognitive impairment, mild, so stated Hyperlipemia Hiatal hernia with GERD WPW (Knlen-Ydtmwqpzm-Zhazp syndrome) Surgical History History of esophagogastroduodenoscopy (EGD) History of eyelid surgery History of bunionectomy History of tonsillectomy and adenoidectomy Family History (Updated 07/07/20 @ 10:15 by Chary Temple Leoncio) Father No problems noted. Mother No problems noted. Social History (Updated 07/08/20 @ 09:39 by CHEYENNE Nichols) Patient Tobacco Use Status: Never used Tobacco Review of Systems Const Reports daytime sleepiness, Denies excessive sweating, Denies fatigue, Denies fever(s), Denies lethargy, Denies malaise, Denies night sweats, Reports snoring and Denies weight loss Eyes Denies blurry vision and Denies itchy eyes ENT Denies nasal congestion, Denies post nasal drip, Denies sinus pain, Denies sinus pressure and Denies other ( Thrush) Card Denies chest pain, Denies pedal edema, Denies dyspnea, Denies orthopnea and Denies paroxysmal nocturnal dyspnea Resp Denies cough, Denies hemoptysis, Denies excessive phlegm production, Denies dyspnea, Reports snoring and Denies wheezing GI Denies abdominal pain and Denies heartburn Musc Denies myalgias, Denies arthralgias and Denies joint swelling Skin/Breast Denies rash Neuro Denies memory loss and Denies seizure-like activity Psych Denies abnormal sleep pattern, Denies anxiety and Denies memory loss Endo Denies excessive sweating, Denies fatigue and Denies heat intolerance Agus/Lymph Denies easy bruising Aller/Immun Denies itchy eyes, Denies seasonal rhinorrhea and Denies wheezing Physical Exam Vital Signs: Last Vital Signs BP 132/84 03/19/24 11:34 Pulse Ox 98 03/19/24 11:34 Oxygen Delivery Method Room Air 03/19/24 11:34 BMI result Body Mass Index 32.4 Const General: no acute distress and alert Nutritional Appearance: not obese Orientation/consciousness: Other orientation findings ( oriented) HEENT Head: Yes atraumatic Eyes General: appearance normal, both eyes and all related structures Sclerae: sclerae normal EOM: EOMs intact bilaterally Neck Neck: Yes supple Lymphatic: no lymphadenopathy noted Resp Effort & Inspection: normal respiratory effort and no use of accessory muscles Auscultation: clear to auscultation bilaterally Cardio Rate: regular rate Rhythm: regular rhythm Heart sounds: no gallops, no murmurs and no rubs Skin General skin exam: other ( warm) Extrem General: No clubbing, No cyanosis and No edema Assessment & Plan Assessment & Plan (1) WILMA (obstructive sleep apnea): Code(s): G47.33 - Obstructive sleep apnea (adult) (pediatric) Category: Medical Plan: Snoring, daytime sleepiness. [place] Sleepiness Scale score of 15. Will obtain home sleep study. Orders: Orders RT home sleep study Today G47.33 - Obstructive sleep apnea (adult) (pediatric) Coding Level of Care Code New Pt Level 3 (09075) Diagnoses WILMA (obstructive sleep apnea) G47.33
[2024-03-19 11:34] VITALS: BP 132/84; O2SAT 98; BMI 32.4
== END 2024-03-19 12:00 | disposition home or self-care (01) ==
PROVIDERS: PCP Internal Medicine Medical Oncology; Visit Provider Internal Medicine Pulmonary Disease
DX: G47.33 Obstructive sleep apnea (adult) (pediatric) (principal)
CPT/HCPCS: 99203

== ENCOUNTER → 2024-03-19 11:18 | Outpatient (BNVA) | payer MEDICARE, MEDICAID, SELFPAY | PROVIDERS: PCP Internal Medicine Medical Oncology; Visit Provider Internal Medicine Pulmonary Disease | DX: G47.33 Obstructive sleep apnea (adult) (pediatric) (principal); D82.4 Hyperimmunoglobulin E [IgE] syndrome | CPT/HCPCS: 99202 ==

== ENCOUNTER 2024-05-23 10:34 | Outpatient (AMB) | payer MEDICARE, MEDICAID, SELFPAY ==
[2024-05-23 10:35] VITALS: BP 122/82; PULSE 106; O2SAT 97; BMI 33.0
--- NOTE | 2024-05-23 10:35 | MHC.OFFVIS ---
Vital Signs 05/23/24 10:35 Height 5 ft 8 in Weight 217 lb 2.485 oz BMI 33.0 BP 122/82 Blood Pressure Location Rt brachial Position Sitting Pulse 106 H Pulse Source Doppler Pulse Oximetry (%) 97 Oxygen Delivery Method Room Air Intake Visit Reasons: SOB/ sleep study FU Allergies No Known Allergies [No Known Allergies*] Allergy (Verified 03/19/24 11:38) HPI HPI SOB/ sleep study FU: Details: 58-year-old gentleman with underlying IgE deficiency referred for evaluation of possible sleep apnea symptoms. Patient states that he has been observed snoring and stopping breathing while sleeping. He also endorses waking up feeling very tired. After the last office visit patient has not completed his sleep study. Today he is complaining of post viral bronchitic cough. [facility] Medical History Prieto esophagus Anxiety Cognitive impairment, mild, so stated Hyperlipemia Hiatal hernia with GERD WPW (Iyglg-Ghewsstdu-Qvpxb syndrome) Surgical History History of esophagogastroduodenoscopy (EGD) History of eyelid surgery History of bunionectomy History of tonsillectomy and adenoidectomy Family History (Updated 07/07/20 @ 10:15 by CHEYENNE Nichols) Father No problems noted. Mother No problems noted. Social History (Updated 07/08/20 @ 09:39 by CHEYENNE Nichols) Patient Tobacco Use Status: Never used Tobacco Review of Systems Const Reports daytime sleepiness, Denies excessive sweating, Denies fatigue, Denies fever(s), Reports lethargy, Denies malaise, Denies night sweats, Denies snoring and Denies weight loss Eyes Denies blurry vision and Denies itchy eyes ENT Denies nasal congestion, Denies post nasal drip, Denies sinus pain, Denies sinus pressure and Denies other ( Thrush) Card Denies chest pain, Denies pedal edema, Denies dyspnea, Denies orthopnea and Denies paroxysmal nocturnal dyspnea Resp Reports cough, Denies hemoptysis, Denies excessive phlegm production, Denies dyspnea, Denies snoring and Denies wheezing GI Denies abdominal pain and Denies heartburn Musc Denies myalgias, Denies arthralgias and Denies joint swelling Skin/Breast Denies rash Neuro Denies memory loss and Denies seizure-like activity Psych Denies abnormal sleep pattern, Denies anxiety and Denies memory loss Endo Denies excessive sweating, Denies fatigue and Denies heat intolerance Agus/Lymph Denies easy bruising Aller/Immun Denies itchy eyes, Denies seasonal rhinorrhea and Denies wheezing Physical Exam Vital Signs: Last Vital Signs Pulse 106 H 05/23/24 10:35 BP 122/82 05/23/24 10:35 Pulse Ox 97 05/23/24 10:35 Oxygen Delivery Method Room Air 05/23/24 10:35 BMI result Body Mass Index 33.0 Const General: no acute distress and alert Nutritional Appearance: not obese Orientation/consciousness: Other orientation findings ( oriented) HEENT Head: Yes atraumatic Eyes General: appearance normal, both eyes and all related structures Sclerae: sclerae normal EOM: EOMs intact bilaterally Neck Neck: Yes supple Lymphatic: no lymphadenopathy noted Resp Effort & Inspection: normal respiratory effort and no use of accessory muscles Auscultation: clear to auscultation bilaterally Cardio Rate: regular rate Rhythm: regular rhythm Heart sounds: no gallops, no murmurs and no rubs Skin General skin exam: other ( warm) Extrem General: No clubbing, No cyanosis and No edema Assessment & Plan Assessment & Plan (1) WILMA (obstructive sleep apnea): Code(s): G47.33 - Obstructive sleep apnea (adult) (pediatric) Category: Medical Plan: Sleep study is pending. (2) Bronchitis: Code(s): J40 - Bronchitis, not specified as acute or chronic Category: Medical Plan: Will treat with a course of azithromycin and prednisone. Medications: New prednisone 40 mg (2 x 20 mg) PO DAILY 10 tabs 0RF azithromycin For 250 mg dose pack: take 500 mg today (day 1), then 250 mg for 4 days (days 2-5) PO 6 tabs 0RF Coding Level of Care Code Est Pt Level 4 (18047) Diagnoses WILMA (obstructive sleep apnea) G47.33 Bronchitis J40
== END 2024-05-23 10:54 | disposition home or self-care (01) ==
PROVIDERS: PCP Internal Medicine Medical Oncology; Visit Provider Internal Medicine Pulmonary Disease
DX: G47.33 Obstructive sleep apnea (adult) (pediatric) (principal); J40 Bronchitis, not specified as acute or chronic
CPT/HCPCS: 99214

== ENCOUNTER → 2024-05-23 10:34 | Outpatient (BNVA) | payer MEDICARE, MEDICAID, SELFPAY | PROVIDERS: PCP Internal Medicine Medical Oncology; Visit Provider Internal Medicine Pulmonary Disease | DX: G47.33 Obstructive sleep apnea (adult) (pediatric) (principal); J40 Bronchitis, not specified as acute or chronic | CPT/HCPCS: 99212 ==

== ENCOUNTER 2024-07-03 12:36 | Outpatient (AMB) | payer MEDICARE, MEDICAID, SELFPAY ==
[2024-07-03 13:12] VITALS: BP 130/80; PULSE 85; O2SAT 98
--- NOTE | 2024-07-03 13:12 | A.OFFVIS_ITS ---
Vital Signs 07/03/24 13:12 BP 130/80 Blood Pressure Location Rt brachial Position Sitting Pulse 85 Pulse Source Pulse Oximeter Pulse Oximetry (%) 98 Oxygen Delivery Method Room Air Intake Visit Reasons: shortness of breath Allergies No Known Allergies [No Known Allergies*] Allergy (Verified 07/03/24 13:15) Medication List - Last Reconciled 07/03/24 by Natali Ahuja LPN azithromycin For 250 mg dose pack: take 500 mg today (day 1), then 250 mg for 4 days (days 2-5) PO omeprazole 20 mg PO DAILY prednisone 40 mg (2 x 20 mg) PO DAILY quetiapine 100 mg PO DAILY simvastatin 10 mg PO DAILY trazodone 25 mg PO DAILY triamcinolone acetonide 0.5% appl topical DAILY HPI HPI shortness of breath: Details: 58-year-old gentleman with underlying IgE deficiency referred for evaluation of possible sleep apnea symptoms. Patient states that he has been observed snoring and stopping breathing while sleeping. He also endorses waking up feeling very tired. After the last office visit patient has not completed his sleep study. He did complete a course of azithromycin for bronchitis with resolution of his symptoms. [facility] Medical History Prieto esophagus Anxiety Cognitive impairment, mild, so stated Hyperlipemia Hiatal hernia with GERD WPW (Ogcgd-Kawijpngj-Uxeis syndrome) Surgical History History of esophagogastroduodenoscopy (EGD) History of eyelid surgery History of bunionectomy History of tonsillectomy and adenoidectomy Family History (Updated 07/07/20 @ 10:15 by CHEYENNE Nichols) Father No problems noted. Mother No problems noted. Social History (Updated 07/08/20 @ 09:39 by CHEYENNE Nichols) Patient Tobacco Use Status: Never used Tobacco Review of Systems Const Reports daytime sleepiness, Denies excessive sweating, Denies fatigue, Denies fever(s), Reports lethargy, Denies malaise, Denies night sweats, Reports snoring and Denies weight loss Eyes Denies blurry vision and Denies itchy eyes ENT Denies nasal congestion, Denies post nasal drip, Denies sinus pain, Denies sinus pressure and Denies other ( Thrush) Card Denies chest pain, Denies pedal edema, Denies dyspnea, Denies orthopnea and Denies paroxysmal nocturnal dyspnea Resp Denies cough, Denies hemoptysis, Denies excessive phlegm production, Denies dyspnea, Reports snoring and Denies wheezing GI Denies abdominal pain and Denies heartburn Musc Denies myalgias, Denies arthralgias and Denies joint swelling Skin/Breast Denies rash Neuro Denies memory loss and Denies seizure-like activity Psych Denies abnormal sleep pattern, Denies anxiety and Denies memory loss Endo Denies excessive sweating, Denies fatigue and Denies heat intolerance Agus/Lymph Denies easy bruising Aller/Immun Denies itchy eyes, Denies seasonal rhinorrhea and Denies wheezing Physical Exam Vital Signs: Last Vital Signs Pulse 85 07/03/24 13:12 BP 130/80 07/03/24 13:12 Pulse Ox 98 07/03/24 13:12 Oxygen Delivery Method Room Air 07/03/24 13:12 Const General: no acute distress and alert Nutritional Appearance: not obese Orientation/consciousness: Other orientation findings ( oriented) HEENT Head: Yes atraumatic Eyes General: appearance normal, both eyes and all related structures Sclerae: sclerae normal EOM: EOMs intact bilaterally Neck Neck: Yes supple Lymphatic: no lymphadenopathy noted Resp Effort & Inspection: normal respiratory effort and no use of accessory muscles Auscultation: clear to auscultation bilaterally Cardio Rate: regular rate Rhythm: regular rhythm Heart sounds: no gallops, no murmurs and no rubs Skin General skin exam: other ( warm) Extrem General: No clubbing, No cyanosis and No edema Assessment & Plan Assessment & Plan (1) WILMA (obstructive sleep apnea): Code(s): G47.33 - Obstructive sleep apnea (adult) (pediatric) Category: Medical Plan: Patient missed his sleep study, sleep study rescheduled. Coding Level of Care Code Est Pt Level 3 (44084) Diagnoses WILMA (obstructive sleep apnea) G47.33
--- OUTSIDE RECORDS SUMMARY | 2024-07-03 14:55 | XMS_ITS ---
Author Organization Nicola Magana III, MD Address [address] [place] [address] [place] [address] Care Team Providers Care Mail Clerks Supervisor Name Role Phone Nicola Magana Primary Care Provider REASON FOR VISIT Change Needed for Rx Social History Sex Assigned At : Social History Observation Description Sex Assigned At Male Encounters Encounter Location Date Provider Diagnosis Nicola Magana III, MD [address] [place] [address] [place] [address] 06/24/2024 Nicola Magana Plan Of Treatment Next Appt Details Provider Name:Nicola Magana, 08/13/2024 11:00:00 AM, [address] [place] [address] [place], [address], Progress Notes * Bridger CASTANEDA RDOB:[birth year] (58 yo M)Acc No.[id number]:06/24/2024 Patient:?Bridger CASTANEDA :1965???Age:58 Y???Sex:Male Address:[address] [place] [address], [address] * true * Date:? Generated for Usama kuhn/Jerrica/eTransmitting on:?07/03/2024 02:54 PM EST
--- OUTSIDE RECORDS SUMMARY | 2024-07-03 14:55 | XMS_ITS | Patient Health Record ---
Author Organization Nicola Magana III, MD Address [address] [place] [address] [place] [address] Care Team Providers Care Veneer Stock Grader Name Role Phone Nicola Magana Primary Care Provider Allergies Allergen (clinical drug ingredient) Drug/Non Drug Allergy documented on EMR Reaction Allergy Type Onset Date Status No Known Drug Allergy Unknown Drug Allergy Active Results Component Value Reference Range Notes URINE DIP STICK Reviewed date:07/25/2023 11:19:30 AM Interpretation: Performing Lab: Notes/Report: SG 1.025 1.005 - 1.025 pH 5.0 5.0 - 9.0 MARTY Negative Negative - NIT Negative Negative - PRO 15 Negative - Trace GLU Negative Negative - KET 5 Negative - UBG 0.2 0.1 - 1.8 TRANG Negative 0.2 - 1.3 BLD Negative Negative - Reason For Referral Reason shortness of breath evaluate for sleep apnea Diagnosis 1 Shortness of breath (R06.02) Referral Organization Nicola Magana III, MD Referring Provider First Name Nicola Referring Provider Last Name Chino Referring Provider Speciality Internal M edicine Referred Provider AMOS BETANCUR Referred Provider Specialty Pulmonary Di seases General Notes Sonia Renteria CM 01/07/2024 04:28:55 PM EDT > Ref/progress notes faxed to Dr Martines office asking them to contact patient computer programming supervisor to set up this appt , Soina Renteria CMA 01/29/2024 11:20:08 AM EDT > Called [facility] spoke to service secretary they stated they have tried to contact space control supervisor several times to set up pt an appt and have sent them a letter also . I called technical programs manager today had to leave message asking her to contact [place] [facility] de[facility] to set up appt for pt Referral Priority Routine Referral Appointment Date 03/07/2024 Medications Medication SIG (Take, Route, Frequency, Duration) [...] EVERY DAY Orally Once a day Active Dextromethorphan-guaiFENes in 5-100 MG/5ML 5 milliliters Orally every 4 hours for 7 days 06/23/2024 08/04/2024 Active Immunizations Vaccine Route Administration Date Status Comme nts COVID- 19 Vaccine Unknown 09/09/2020 Administered COVID- 19 Vaccine Unknown 10/02/2020 Administered SHINGRIX Unknown 04/08/2022 Administered Social History Tobacco Use: Social History Observation Description Date Details (start date - stop date) Never Smoker NA - NA Sex Assigned At : Social History Observation Description Sex Assigned At Male Tobacco Use/Smoking Question Answer Notes Patient is a nonsmoker Additional Findings: Tobacco Non-User Aggressive non-smoker Alcohol Screen Question Answer Notes Did you have a drink containing alcohol in the p ast year? No Points 0 Interpretation Negative Problems Problem Type SNOMED Code ICD Code Onset Dates Problem Status W/U Status Risk Notes Problem Depression (349948924) Depression (F32.9) Active confirmed His sertraline was discontinued. No side effects. It then encountered. [facility] I have requested he be seen by a prescriber.I amm seeing him once a week to ensure stability. Stability is in a relationship with an appropriate mental health provider. Problem Chest pain (79471622) Chest pain (R07.9) Active confirmed He has noted some exertional chest pain accompanied by shortness of breath. A cardiac evaluation has been ordered with an EKG stress test and echocardiogra m. Problem 516095388648164 Obesity (BMI 30.0-34.9) (E66.9) Active confirmed His body mass index is 30 with a poor pound weight gain. We discussed his weight loss strategy and made a plan to lose weight at a rate of one half of a pound per week. Problem 91380302 Anxiety (F41.9) Active confirmed He has complained recently of anxiety, which is why he is on the sertraline for generalized anxiety disorder. Problem 281938453 Mixed hyperlipidemia (E78.2) Active confirmed His fasting lipid profile shows his values to be in the normal range. His cholesterol was 152 on November 08, 2022. His weight has been stable. We reviewed his diet and nutrition. Problem Feeling suicidal (260553715) Suicidal ideations (R45.851) Active confirmed Problem 062769072 GERD without esophagitis (K21.9) Active confirmed His reflux symptoms are well-controll ed with medication and no change in his regimen was necessary today. He is sleeping well. Problem Benign prostatic hyperplasia (718263873) BPH (benign prostatic hyperplasia) (N40.0) Active confirmed We discussed lifestyle modification. His current therapy was continue unchanged. Problem 61646910 Hiatal hernia (K44.9) Active confirmed No symptoms are present lately. He will continue with current therapy. Problem 629246687 Barretts esophagus without dysplasia (K22.70) Active confirmed He has no symptoms of dysphagia reflux today. His surveillance with upper endoscopy will continue with the appropriate intervals.. Problem 3948376 Learning disability (F81.9) Active confirmed His cognitive functions and bodily habitus, have remained stable. [facility] involved. His mother is less anxious. Problem 611573008589 Daytime somnolence (R40.0) Active confirmed I have ordered a sleep study to evaluate him for sleep apnea. 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 Range of motion was intact in free of pain. 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 If I cannot get one from old records. I will to a tracing in the office. He is asymptomatic at this time. Vital Signs Heart Rate 93 /min 11/20/2023 Temperature 99.0 degrees Fahrenheit 11/20/2023 Blood pressure diastolic 81 mm Hg 11/20/2023 Height 70 in 01/01/2024 Blood pressure systolic 130 mm Hg 11/20/2023 Weight 209 lbs 01/01/2024 BMI 29.99 kg/m2 01/01/2024 Encounters Encounter Location Date Provider Diagnosis Nicola Magana III, MD [address] [place] [address] [place] [address] 07/03/2023 Nicola Magana Learning disability F81.9 ; Mixed hyperlipidemia E78.2 ; Spondylosis of cervical region without myelopathy or radiculopathy M47.812 ; GERD without esophagitis K21.9 ; Barretts esophagus without dysplasia K22.70 ; BPH (benign prostatic hyperplasia) N40.0 and Overweight E66.3 Nicola Magana III, MD [address] [place] [address] [place] [address] 07/25/2023 Nicola Magana Learning disability F81.9 ; History of Mqefp-Rmmmzzbet-Qdwwm (WPW) syndrome Z86.79 ; Mixed hyperlipidemia E78.2 ; Spondylosis of cervical region without myelopathy or radiculopathy M47.812 ; Hiatal hernia K44.9 ; GERD without esophagitis K21.9 and BPH (benign prostatic hyperplasia) N40.0 Nicola Magana III, MD [address] [place] [address] [place] [address] 10/23/2023 Nicola Magana Learning disability F81.9 ; Chest pain R07.9 ; Mixed hyperlipidemia E78.2 ; GERD without esophagitis K21.9 ; Barretts esophagus without dysplasia K22.70 ; Spondylosis of cervical region without myelopathy or radiculopathy M47.812 and Obesity (BMI 30.0-34.9) E66.9 Nicola Magana III, MD [address] [place] [address] [place] [address] 11/20/2023 Nicola Magana Learning disability F81.9 ; Hiatal hernia K44.9 ; GERD without esophagitis K21.9 ; Spondylosis of cervical region without myelopathy or radiculopathy M47.812 and Mixed hyperlipidemia E78.2 Nicola Magana III, MD [address] [facility] [place] [address] 01/01/2024 Nicola Luciorne Learning disability F81.9 ; Daytime somnolence R40.0 ; Snoring R06.83 ; Mixed hyperlipidemia E78.2 ; Spondylosis of cervical region without myelopathy or radiculopathy M47.812 ; Hiatal hernia K44.9 and GERD without esophagitis K21.9 Nicola Magana III, MD [address] [facility] [facility] [address] 07/06/2023 Nicola Magana III, MD [address] [facility] [place] [address] 11/21/2023 Nicola Magana Learning disability F81.9 Nicola Magana III, MD [address] [place] [address] [place] [address] 11/27/2023 Nicola Chino Learning disability F81.9 Nicola Magana III, MD [address] [facility] [facility] [address] 02/04/2024 Nicola Magana III, MD [address] [place] [address] [place] [address] 06/23/2024 Nicola Magana III, MD [address] [place] [address] [place] [address] 06/23/2024 Nicola Magana III, MD [address] [place] [address] [place] [address] 06/24/2024 Nicola Magana Assessments Encounter Date Diagnosis (ICD Code) Assessment Notes Treat ment Notes Treatment Clinical Notes 07/03/2023 Mixed hyperlipidemia (ICD-10 - E78.2) His fasting lipid profile shows his values to be in the normal range. His cholesterol was 152 on November 08, 2022. His weight has been stable. We reviewed his diet and nutrition. 07/03/2023 Learning disability (ICD-10 - F81.9) His cognitive functions and bodily habitus, have remained stable. [facility] [email or web address] [facility] is now involved. His mother is less anxious. 07/25/2023 Learning disability (ICD-10 - F81.9) His cognitive functions and bodily habitus, have remained stable. [facility] [email or web address] [facility] is now involved. His mother is less anxious. 07/25/2023 History of Almfk-Ezswkibnx-Avjpj (WPW) syndrome (ICD-10 - Z86.79) I do not have an EKG tracing. If I cannot get one from old records. I will to a tracing in the office. He is asymptomatic at this time. 10/23/2023 Chest pain (ICD-10 - R07.9) He has noted some exertional chest pain accompanied by shortness of breath. A cardiac evaluation has been ordered with an EKG stress test and echocardiogram. 10/23/2023 Learning disability (ICD-10 - F81.9) His cognitive functions and bodily habitus, have remained stable. [facility] [employer] [facility] [employer] is now involved. His mother is less anxious. 11/20/2023 Hiatal hernia (ICD-1 0 - K44.9) No symptoms are present lately. He will continue with current therapy. 11/20/2023 Learning disability (ICD-10 - F81.9) His cognitive functions and bodily habitus, have remained stable. [facility] [employer] is now involved. His mother is less anxious. 01/01/2024 Learning disability (ICD-10 - F81.9) His cognitive functions and bodily habitus, have remained stable. [facility] [employer] [facility] [employer] is now involved. His mother is less anxious. 01/01/2024 Daytime somnolence (ICD-10 - R40.0) I have ordered a sleep study to evaluate him for sleep apnea. 11/21/2023 Learning disability (ICD-10 - F81.9) His cognitive functions and bodily habitus, have remained stable. The [facility] is now involved. His mother is less anxious. 11/27/2023 Learning disability (ICD-10 - F81.9) His cognitive functions and bodily habitus, have remained stable. [facility] [employer] [facility] [employer] is now involved. His mother is less anxious. 07/03/2023 Spondylosis of cervical region without myelopathy or radiculopathy (ICD-10 - M47.812) The pain in his arms does not appear to radiate from the neck. Range of motion was intact in free of pain. 07/25/2023 Mixed hyperlipidemia (ICD-10 - E78.2) His fasting lipid profile shows his values to be in the normal range. His cholesterol was 152 on November 08, 2022. His weight has been stable. We reviewed his diet and nutrition. 10/23/2023 Mixed hyperlipidemia (ICD-10 - E78.2) His fasting lipid profile shows his values to be in the normal range. His cholesterol was 152 on November 08, 2022. His weight has been stable. We reviewed his diet and nutrition. 11/20/2023 GERD without esophagitis (ICD-10 - K21.9) His reflux symptoms are well-controlled with medication and no change in his regimen was necessary today. He is sleeping well. 01/01/2024 Snoring (ICD-10 - R06.83) He has been witnessed to have excessive snoring very stiff at the skilled nursing. 07/03/2023 GERD without esophagitis (ICD-10 - K21.9) His reflux symptoms are well-controlled with medication and no change in his regimen was necessary today. He is sleeping well. 07/25/2023 Spondylosis of cervical region without myelopathy or radiculopathy (ICD-10 - M47.812) The pain in his arms does not appear to radiate from the neck. Range of motion was intact in free of pain. 10/23/2023 GERD without esophagitis (ICD-10 - K21.9) His reflux symptoms are well-controlled with medication and no change in his regimen was necessary today. He is sleeping well. 11/20/2023 Spondylosis of cervical region without myelopathy or radiculopathy (ICD-10 - M47.812) The pain in his arms does not appear to radiate from the neck. Range of motion was intact in free of pain. 01/01/2024 Mixed hyperlipidemia (ICD-10 - E78.2) His fasting lipid profile shows his values to be in the normal range. His cholesterol was 152 on November 08, 2022. His weight has been stable. We reviewed his diet and nutrition. 07/03/2023 Barretts esophagus without dysplasia (ICD-10 - K22.70) He has no symptoms of dysphagia reflux today. His surveillance with upper endoscopy will continue with the appropriate intervals.. 07/25/2023 Hiatal hernia (ICD-1 0 - K44.9) No symptoms are present lately. He will continue with current therapy. 10/23/2023 Barretts esophagus without dysplasia (ICD-10 - K22.70) He has no symptoms of dysphagia reflux today. His surveillance with upper endoscopy will continue with the appropriate intervals.. 11/20/2023 Mixed hyperlipidemia (ICD-10 - E78.2) His fasting lipid profile shows his values to be in the normal range. His cholesterol was 152 on November 08, 2022. His weight has been stable. We reviewed his diet and nutrition. 01/01/2024 Spondylosis of cervical region without myelopathy or radiculopathy (ICD-10 - M47.812) The pain in his arms does not appear to radiate from the neck. Range of motion was intact in free of pain. 07/03/2023 BPH (benign prostati c hyperplasia) (ICD-10 - N40.0) We discussed lifestyle modification. His current therapy was continue unchanged. 07/25/2023 GERD without esophagitis (ICD-10 - K21.9) His reflux symptoms are well-controlled with medication and no change in his regimen was necessary today. He is sleeping well. 10/23/2023 Spondylosis of cervical region without myelopathy or radiculopathy (ICD-10 - M47.812) The pain in his arms does not appear to radiate from the neck. Range of motion was intact in free of pain. 01/01/2024 Hiatal hernia (ICD-1 0 - K44.9) No symptoms are present lately. He will continue with current therapy. 07/03/2023 Overweight (ICD-10 - E66.3) He has gained 6 pounds since his last visit. We had a discussion about a weight reduction diet. He will lose one half of a pound per week. Diet restricted in fat calories and sodium. 07/25/2023 BPH (benign prostati c hyperplasia) (ICD-10 - N40.0) We discussed lifestyle modification. His current therapy was continue unchanged. 10/23/2023 Obesity (BMI 30.0-34.9) (ICD-10 - E66.9) His body mass index is 30 with a poor pound weight gain. We discussed his weight loss strategy and made a plan to lose weight at a rate of one half of a pound per week. 01/01/2024 GERD without esophagitis (ICD-10 - K21.9) His reflux symptoms are well-controlled with medication and no change in his regimen was necessary today. He is sleeping well. Plan Of Treatment Pending Test Test Name Order Date PROFILE, FASTING (COMPREHENSIVE METABOLI C) 07/22/2018 PROFILE, FASTING (COMPREHENSIVE METABOLI C) 03/31/2019 PROFILE, FASTING (COMPREHENSIVE METABOLI C) 03/09/2020 PROFILE, FASTING (COMPREHENSIVE METABOLI C) 02/13/2018 PROFILE, FASTING (COMPREHENSIVE METABOLI C) 09/07/2021 PROFILE, FASTING (COMPREHENSIVE METABOLI C) 11/26/2018 PROFILE, FASTING (COMPREHENSIVE METABOLI C) 09/06/2020 PROFILE, RANDOM (COMPREHENSIVE METABOLIC ) 08/01/2019 PROFILE, RANDOM (COMPREHENSIVE METABOLIC ) 12/05/2019 LIPID PANEL 09/06/2020 LIPID PANEL 07/22/2018 LIPID PANEL 08/01/2019 LIPID PANEL 03/31/2019 LIPID PANEL 03/09/2020 LIPID PANEL 02/13/2018 LIPID PANEL 11/26/2018 LIPID PANEL 12/05/2019 FREE T4 (FT4) 09/07/2021 TSH (THYROID STIMULATING HORMONE) 2021 PSA, TOTAL 09/07/2021 CBC w DIFF 11/26/2018 CBC w DIFF 12/05/2019 CBC w DIFF 09/07/2021 CBC w DIFF 09/06/2020 CBC w DIFF 07/22/2018 CBC w DIFF 08/01/2019 CBC w DIFF 03/31/2019 CBC w DIFF 03/09/2020 CBC w DIFF 02/13/2018 XR KNEE RT 4 VIEWS 03/31/2019 XR LOWER LEG RT 03/31/2019 XR LUMBAR SPINE 4+ VIEWS 06/26/2018 Echocardiogram 10/23/2023 Lipid Panel 09/07/2021 ECG 12 lead EKG 03/28/2023 Exercise Stress Test 10/23/2023 Next Appt Details Provider Name:Nicola Magana, 08/13/2024 11:00:00 AM, [address] [place] [address] , [place], [place], [address], Insurance Providers Payer Name Payer Address Payer Phone Subscriber Number Group Number Insured Name Patient Relationship to Insured Coverage Start Date Coverage End Date MEDICARE NGS [address] [place] [address] [id number] Bridger Ramachandran Self - patient is the insured MEDICAID [address] [place] [id number] Bridger Ramachandran - patient is the insured Medical (General) History Medical History History ICD Code Mild mental retardation F70 Osteoarthritis of cervical s pine, unspecified spinal osteoarthritis complication status M47.812 Hyperlipidemia, unspecified hyperlipidem ia type E78.5 Gastro-esophageal reflux disease without esophagitis K21.9 small hiatal hernia Prieto's esophagus history of depression treated with Proza c history of Parkinson White syndrome history of low back pain calluses on feet ceruminosis overweight history of atypical chest pain with nega tive cardiac workup Suicidal ideations R45.851 Surgical History Surgery Date(Month/Year) esophagogastric duodenoscopy , [facility], Dr. Nicola Mandujano, positive for Prieto's epithelium 12/2016 bunionectomy/bilateral, [facility], Dr. Pulido 2003 tonsillectomy and adenoidectomy 1975
--- OUTSIDE RECORDS SUMMARY | 2024-07-03 14:55 | XMS_ITS ---
Author Organization Nicola Magana III, MD Address [address] [place] [address] [place] [address] Care Team Providers Care Process Engineering Manager Name Role Phone Nicola Magana Primary Care Provider [phone] Medications Medication SIG (Take, Route, Frequency, Duration) Notes Start Date End Date Status Dextromethorphan-guaiFENe sin 5-100 MG/5ML 5 milliliters Orally every 4 hours for 7 days 06/23/2024 08/04/2024 Active Social History Sex Assigned At : Social History Observation Description Sex Assigned At Male Encounters Encounter Location Date Provider Diagnosis Nicola Magana III, MD [address] [place] [address] [address] [facility] [facility] [place] [address] 06/23/2024 Nicola Magana Plan Of Treatment Medication Medication Name Sig Start Date Stop Date Notes Dextromethorphan-guaiFENesin 5-100 MG/5ML 5 milliliters Orally every 4 hours for 7 days 06/23/2024 08/04/2024 Next Appt Details Provider Name:Nicola Magana, 08/13/2024 11:00:00 AM, [address] [place] [address] [place], [address], Progress Notes * Bridger CASTANEDA RDOB:[birth year] (58 yo M)Acc No.[id number]:06/23/2024 Patient:?Bridger CASTANEDA :1965???Age:58 Y???Sex:Male Address:[address] [place] [address], [place], [address] * Refills? Start Dextromethorphan-guaiFENesin Liquid, 5-100 MG/5ML, Orally, 210 Milliliter, 5 milliliters, every 4 hours, 7 days, Refills=5 * true * Date:? Generated for Usama kuhn/Jerrica/Soniasmitting on:?07/03/2024 02:55 PM EST
--- OUTSIDE RECORDS SUMMARY | 2024-07-03 14:55 | XMS_ITS ---
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) Active confirmed Frankel esophag us (881687588) Problem GERD (gastroesophageal reflux disease) (K21.9) Active confirmed Gastroesophagea l reflux disease (053638346) Encounters Encounter Location Date Provider Diagnosis [facility] [place] [facility] [address] [place] [id number] 04/30/2023 Nicoal Mandujano Diverticulosis of large intestine without perforation or abscess without bleeding K57.30 ; Internal hemorrhoids K64.8 ; Diarrhea R19.7 ; Frankel esophagus K22.70 ; Hiatal hernia K44.9 and GERD (gastroesophageal reflux disease) K21.9 ASSESSMENTS Encounter Date Diagnosis Assessment Notes Treatment Notes Treatment Clinical Notes 04/30/2023 Diverticulosis of large intestine without perforation or abscess without bleeding (ICD-10 - K57.30) 04/30/2023 Internal hemorrhoids (ICD-10 - K64.8) 04/30/2023 Diarrhea (ICD-10 - R19.7) 04/30/2023 Frankel esophagus (ICD-10 - K22.70) 04/30/2023 Hiatal hernia (ICD-1 0 - K44.9) 04/30/2023 GERD (gastroesophageal reflux disease) (ICD-10 - K21.9) PLAN OF TREATMENT No Information
--- OUTSIDE RECORDS SUMMARY | 2024-07-03 14:55 | XMS_ITS ---
Author Organization Nicola Magana III, MD Address [address] [place] [address] [place] [address] Care Team Providers Care Ux Researcher Name Role Phone Nicola Magana Primary Care Provider [phone] REASON FOR VISIT Rx Request Social History Sex Assigned At : Social History Observation Description Sex Assigned At Male Encounters Encounter Location Date Provider Diagnosis Nicola Magana III, MD [address] [place] [address] [address] [facility] [facility] [place] [address] 06/23/2024 Nicola Magana Plan Of Treatment Next Appt Details Provider Name:Nicola Magana, 08/13/2024 11:00:00 AM, [address] [place] [address] [place], [address], Progress Notes * Bridger CASTANEDA RDOB:[birth year] (58 yo M)Acc No.[id number]:06/23/2024 Patient:?Bridger CASTANEDA :1965???Age:58 Y???Sex:Male Address:[address] [place] [address], [address] * true * Date:? Generated for Usama kuhn/Jerrica/eTransmitting on:?07/03/2024 02:55 PM EST
--- OUTSIDE RECORDS SUMMARY | 2024-07-03 14:56 | XMS_ITS | Patient Health Record ---
Author Organization [facility] Address [address] [place] [address] Care Team Providers Care Paper Mill Supervisor Name Role Phone Nicola Magana MD Primary Care Provider Unavailab Nicola Munoz Unavailable [phone] ALLERGIES No Known Allergies REASON FOR REFERRAL No Information MEDICATIONS Medication SIG (Take, Route, Frequency, Duration) Notes Start Date End Date Status Simvastatin 10 MG 1 tablet in the even ing Orally Once a day Active Azithromycin 500 MG 1 tablet Orally Miguel y for 3 days 04/10/2023 Active QUEtiapine Fumarate 100 MG 1 tablet at b edtime Orally THREE TIMES a day Active Omeprazole 20 MG 1 capsule 30 minutes before morning meal Orally Once a day Active IMMUNIZATIONS Vaccine Route Administration Date Status Comme nts Influenza Unknown 02/09/2019 Administered SOCIAL HISTORY Tobacco Use: Social History Observation Description Date Details (start date - stop date) Never Smoker NA - NA Sex Assigned At : Social History Observation Description Sex Assigned At Unknown Tobacco Use/Smoking Question Answer Notes Patient is a nonsmoker Alcohol Screen Question Answer Notes Did you have a drink containing alcohol in the p ast year? 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) Active confirmed 564180636 Problem Encounter for screening for malignant neoplasm of colon (Z12.11) Active confirmed 581600481 Problem Gastroesophageal reflux disease without esophagitis (K21.9) Active confirmed 420005435 Problem Bowel habit changes (R19.4) Active confirmed 88684158 Problem Diarrhea, unspecified type (R19.7) Active confirmed 95202999 Problem Diverticulosis of large intestine without perforation or abscess without bleeding (K57.30) Active confirmed Diverticul ar disease of colon (311542650) Problem Prieto esophagus (K22.70) Active confirmed Prieto esophag us (987249906) Problem GERD (gastroesophageal reflux disease) (K21.9) Active confirmed Gastroesophagea l reflux disease (476239842) PLAN OF TREATMENT Pending Test Test Name Order Date LIVER PROFILE 04/03/2023 CRP 04/03/2023 CBC w DIFF 04/03/2023 SED RATE (ESR) 04/03/2023 CELIAC PANEL #10 04/03/2023 STOOL WBC 04/03/2023 C DIFFICILE RFLX PCR 04/03/2023 Pathology 04/30/2023 Future Test Test Name Order Date UPPER GI ENDOSCOPY 11/01/2016 UPPER GI ENDOSCOPY 11/18/2019 COLONOSCOPY 11/18/2019 UPPER GI ENDOSCOPY 04/03/2023 COLONOSCOPY 04/03/2023 Insurance Providers Payer Name Payer Address Payer Phone Subscriber Number Group Number Insured Name Patient Relationship to Insured Coverage Start Date Coverage End Date MEDICARE OF [place] [address] [place] [address] [id number] SAVJR GARY Zayas Self - patient is the insured MEDICAID OF [facility] [address] [place] [address] [id number] GARY HAYS Self - patient is the insured MEDICAL (GENERAL) HISTORY Medical History History ICD Code Denies DE,DM,CVA,Lung disease,renal dise ase GERD-upper endoscopy in December of 2016 with the finding of a small hiatal hernia, slightly irregular gastroesophageal junction with biopsies revealing some intestinal metaplasia but without dysplasia Hyperlipidemia He has some mild cognitive impairment as per his mother Anxiety Negative screening colonoscopy in 01/2020 EGD in 01/2020 with small are a of Prieto's negative for dysplasia and antral gastritis with intestinal metaplasia and H.pylori(not treated) Surgical History Surgery Date(Month/Year) Bunionectomy Eye surgery on eyelids. He c an't close his eyes and he sleeps with his eyes open .
--- OUTSIDE RECORDS SUMMARY | 2024-07-03 14:56 | XMS_ITS ---
Author Organization [facility] Address [address] [place] [address] Care Team Providers Care Professor Of Journalism Name Role Phone Chino MORENO, Nicola Primary Care Provider Unavailab Nicola Munoz Unavailable [phone] REASON FOR VISIT Check on his pharmacy/ updated in system. MEDICATIONS Medication SIG (Take, Route, Fr equency, Duration) Notes Start Date End Date Status Azithromycin 500 MG 1 tablet Orally Daily for 3 days 04/10/2023 Active Encounters Encounter Location Date Provider Diagnosis [facility] [address] [place] [address] 04/10/2023 Nicola Mandujano PLAN OF TREATMENT Medication Medication Name Sig Start Date Stop Date Notes Azithromycin 500 MG 1 tablet Orally Daily for 3 days 04/10
--- OUTSIDE RECORDS SUMMARY | 2024-07-03 14:56 | XMS_ITS ---
Author Organization [facility] Address [address] [place] [address] Care Team Providers Care Counter Stitcher Name Role Phone Nicola Magana MD Primary Care Provider Unavailab Nicola Munoz Unavailable [phone] REASON FOR VISIT reject poop sample Encounters Encounter Location Date Provider Diagnosis [facility] [address] [place] [address] 04/04/2023 Nicola Mandujano PLAN OF TREATMENT No Information
== END 2024-07-03 13:37 | disposition home or self-care (01) ==
PROVIDERS: PCP Internal Medicine Medical Oncology; Visit Provider Internal Medicine Pulmonary Disease
DX: G47.33 Obstructive sleep apnea (adult) (pediatric) (principal)
CPT/HCPCS: 99213

== ENCOUNTER → 2024-07-03 13:48 | Outpatient (REF) | payer MEDICARE, MEDICAID, SELFPAY | LOC: HO.SL 13:48 | PROVIDERS: Visit Provider Internal Medicine Pulmonary Disease | DX: G47.33 Obstructive sleep apnea (adult) (pediatric) (principal) | CPT/HCPCS: 95806; 99212 ==

== ENCOUNTER 2024-08-22 13:24 | Outpatient (AMB) | payer MEDICARE, MEDICAID, SELFPAY ==
[2024-08-22 13:27] VITALS: BP 128/82; PULSE 85; O2SAT 98; BMI 33.0
--- NOTE | 2024-08-22 13:27 | A.OFFVIS_ITS ---
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 After the last office visit patient had sleep study that showed underlying moderate obstructive sleep apnea with AHI of 19. APAP machine was ordered, however he has not received it yet. [facility] Medical History Prieto esophagus Anxiety Cognitive impairment, mild, so stated Hyperlipemia Hiatal hernia with GERD WPW (Rebhw-Kamometsy-Xhtne syndrome) Surgical History History of esophagogastroduodenoscopy (EGD) History of eyelid surgery History of bunionectomy History of tonsillectomy and adenoidectomy Family History (Updated 07/07/20 @ 10:15 by Chary Temple Leoncio) Father No problems noted. Mother No problems noted. Social History (Updated 07/08/20 @ 09:39 by CHEYENNE Nichols) Patient Tobacco Use Status: Never used Tobacco Review of Systems Const Reports daytime sleepiness, Denies excessive sweating, Reports fatigue, Denies fever(s), Reports lethargy, Denies malaise, Denies night sweats, Reports snoring and Denies weight loss Eyes Denies blurry vision and Denies itchy eyes ENT Denies nasal congestion, Denies post nasal drip, Denies sinus pain, Denies sinus pressure and Denies other ( Thrush) Card Denies chest pain, Denies pedal edema, Denies dyspnea, Denies orthopnea and Denies paroxysmal nocturnal dyspnea Resp Denies cough, Denies hemoptysis, Denies excessive phlegm production, Denies dyspnea, Reports snoring and Denies wheezing GI Denies abdominal pain and Denies heartburn Musc Denies myalgias, Denies arthralgias and Denies joint swelling Skin/Breast Denies rash Neuro Denies memory loss and Denies seizure-like activity Psych Denies abnormal sleep pattern, Denies anxiety and Denies memory loss Endo Denies excessive sweating, Reports fatigue and Denies heat intolerance Agus/Lymph Denies easy bruising Aller/Immun Denies itchy eyes, Denies seasonal rhinorrhea and Denies wheezing Physical Exam Vital Signs: Last Vital Signs Pulse 85 08/22/24 13:27 BP 128/82 08/22/24 13:27 Pulse Ox 98 08/22/24 13:27 Oxygen Delivery Method Room Air 08/22/24 13:27 BMI result Body Mass Index 33.0 Const General: no acute distress and alert Nutritional Appearance: not obese Orientation/consciousness: Other orientation findings ( oriented) HEENT Head: Yes atraumatic Eyes General: appearance normal, both eyes and all related structures Sclerae: sclerae normal EOM: EOMs intact bilaterally Neck Neck: Yes supple Lymphatic: no lymphadenopathy noted Resp Effort & Inspection: normal respiratory effort and no use of accessory muscles Auscultation: clear to auscultation bilaterally Cardio Rate: regular rate Rhythm: regular rhythm Heart sounds: no gallops, no murmurs and no rubs Skin General skin exam: other ( warm) Extrem General: No clubbing, No cyanosis and No edema Assessment & Plan Assessment & Plan (1) WILMA (obstructive sleep apnea): Code(s): G47.33 - Obstructive sleep apnea (adult) (pediatric) Category: Medical Plan: Results of sleep study reviewed, underlying moderate obstructive sleep apnea, APAP ordered, however patient has not received it yet. Coding Level of Care Code Est Pt Level 3 (29491) Diagnoses WILMA (obstructive sleep apnea) G47.33
--- OUTSIDE RECORDS SUMMARY | 2024-08-22 15:00 | XMS_ITS ---
Author Organization Nicola Magana III, MD Address [address] [place] [address] [place] [address] Care Team Providers Care Turbine Engineer Name Role Phone Nicola Magana Primary Care Provider [phone] Allergies Allergen (clinical drug ingredient) Drug/Non Drug [...] Problem Status W/U Status Risk Notes Problem 413782894 Overweight (E66.3) Active confirmed He has gained 8 pounds. His body [...] Date Provider Diagnosis Nicola Magana III, MD [address] [place] [address] [address] [place], [place] [address] 08/13/2024 Nicola Magana Learning disability F81.9 ; [...] and bodily habitus, have remained stable. [facility] [employer] has placed him in a jail house. He lives with his mother. He [...] date, Reason: OV, Routine check-up Provider Name:Nicola Magana, 02/20/2025 11:00:00 AM, [address] [place] [address] [address], [place], [address], Provider Name:Nicola Magana, 08/19/2025 11:00:00 AM, [address] [place] [address] [address], [place], [address], Progress Notes * Bridger CASTANEDA RDOB:[birth year] (58 yo M)Acc No.[id number]:08/13/2024 Progress Notes Patient:?Bridger CASTANEDA Provider:?Nicola Magana MD :1965???Age:58 Y???Sex:Male Beau e:08/13/2024 Address:[address] [place] [address], Lupe monk [id number] Subjective: * Chief Complaints: * ???Annual exam * HPI: ???Depression Screening:?PHQ-9?Little interest or pleasure in doing things?Not at all ?Feeling down, depressed, or hopeless?Not at all ?Trouble falling or staying asleep, or sleeping too much?Not at all ?Feeling tired or having little energy?Not at all ?Poor appetite or overeating?Not at all ?Feeling bad about yourself or that you are a failure, or have let yourself or your family down?Not at all ?Trouble concentrating on things, such as reading the newspaper or watching television?Not at all ?Moving or speaking so slowly that other people could have noticed; or the opposite, being so fidgety or restless that you have been moving around a lot more than usual?Not at all ?Thoughts that you would be better off or of hurting yourself in some way?Not at all ?Total Score?0 ???COVID-19 Screening:?Questions?Have you had any new onset fever, chills, cough, congestion, sore throat, shortness of breath, muscle aches??No ???SDOH Questions:?SDOH Questions?In the past year have you been worried about losing your housing??No ?In the past year have you or any family members you live with been unable to get any of the following when it was really needed? Check all that apply:?None ???:? The patient, a 58-year-old male, presented for [...] His gall bladder was not painful. * ROS:?General/Constitutional:?pain?only normal aches and pains.?Chills?denies.?Fatigue?admits.?Fever?denies.?ENT:?Decreased hearing?denies.?Respiratory:?Cough?denies.?Cardiovascular:?Chest pain with exertion?denies.?Dyspnea on exertion?denies.?Shortness of breath?denies.?Gastrointestinal:?Constipation?occasional.?Decreased appetite?denies.?Diarrhea?denies.?Heartburn?denies.?Nausea?denies.?Rectal bleeding?denies.?Vomiting?denies.?Hematology:?bruising?denies.?petechiae?denies.?Swollen glands?none have been noted.?Genitourinary:?Frequent urination?once a night.?Musculoskeletal:?Muscle aches?denies.?Painful joints?denies.?Sciatica?denies.?Weakness?denies.?Skin:?Itching?denies.?Rash?denies.?Skin lesion(s)?denies.?Neurologic:?Difficulty speaking?denies.?Dizziness?denies.?Headache?denies.?Low back pain?denies.?Psychiatric:?Depressed mood?denies.? * Medical History:? * Surgical History:?tonsillect uriel and adenoidectomy 1976bunionectomy/bilateral, [facility], Dr. Pulido 2004esophagogastric duodenoscopy, [facility], Dr. Nicola Mandujano, positive for Prieto's epithelium 12/2016No history * Hospitalization/Major Diagno stic Procedure:?No history * Family History:?Father: dexter campbell 71 yrs.?Mother: alive 60 yrs.?2 brother(s) , 2 sister(s) - healthy. .? A paternal uncle had a myocardial infarction at the age of 40. He has 4 brothers and 2 sisters whom he says are healthy and well. * Social History:?Tobacco Use:?Tobacco Use/Smoking?Patient is a?nonsmoker ?Additional Findings: Tobacco Non-User?Aggressive non-smoker ?Tobacco Control (Standard)?Tobacco use:?Nonsmoker ?Additional Findings: Tobacco non-user?Aggressive nonsmoker ???Drugs/Alcohol:?Drugs?Have you used drugs other than those for medical reasons in the past 12 months??No ???Drug/Alcohol:?AUDIT-C (Standard)?Did you have a drink containing alcohol in the past year??No ?Points?0 ?Interpretation?Negative ???He was born at [place], [place]. He is single and has no children. He is disabled and not working. The patient reported feeling less depressed and adjusting well. He also mentioned having some trouble exercising due to a knee issue. He was happy with his living situation and was planning to start working on reading and writing. * Medications:?TakingQUEtiapin e Fumarate 100 MG Tablet as directed Orally [...] reviewed and reconciled with the patient * Allergies:?No Known Drug All ergyno[Allergies Verified] Objective: * Vitals:?Ht: 70, Wt: 217, BMI :31.13, BP: 135/80, HR: 84, RR: 16, Temp: 98.1, Wt- k.43. * Examination: ???General Examination: ?GENERAL APPEARANCE:?pleasant, well nourished, well developed, in no acute distress, calm and relaxed, obese, man.?HEAD:?atraumatic, normocephalic.?EYES:?eomi, perrla, anicteric, conjugate.?EARS:?normal.?NOSE:?septum intact.?ORAL CAVITY:?normal, unremarkable.?NECK/THYROID:?no jugular venous distention, no carotid bruit, thyroid normal.?LYMPH NODES:?no enlarged lymph nodes,spleen normal.?SKIN:?no suspicious lesions, anicteric.?HEART:?no clicks, gallops, murmurs, or rubs, regular rhythm, S1, S2 normal, no s3, or vascular bruits.?LUNGS:?clear to auscultation .?BREASTS:??no masses palpable bilaterally.?ABDOMEN:?bowel sounds normal, no ascites, no organomegaly, no mass, centripital obesity.?RECTAL EXAM:?not examined.?MUSCULOSKELETAL:?extremities unremarkable, no clubbing, cyanosis or edema.?PERIPHERAL PULSES:?normal.?NEUROLOGIC:?alert and oriented, cranial nerves 2-12 grossly intact, deep tendon reflexes 2+ symmetrical, motor strength normal upper and lower extremities, sensory exam intact.?PSYCH:?alert, oriented, Moderate cognitive impairment.? : ???Neck:Improved, no pain; Heart: Regular and slow rate, no murmurs; Gall bladder: Not painful; Skin: Healthy; Hearing: Good; Eyesight: Good; Esophagus: Inflammation present; Knee: Issue causing trouble with exercise. ??? Assessment: * Assessment: 1.?Learning disability - F81 .9 (Primary)???Notes :His cognitive functions and bodily habitus, have remained stable. [facility] [employer] has placed him in a jail house.? He lives with his mother.? He says he is very happy there.???2.?Mixed hyperlipidemia - E78.2???Notes :He has gained weight.? No current fasting lipids are available.? I have ordered a profile to be done prior to next visit.? No change in his regimen was necessary.???3.?BPH (benign prostatic hyperplasia) - N40.0???Notes :He rises from sleep once a night.? We have discussed lifestyle modifications he could make to reduce nocturia.???4.?Overweight - E66.3???Notes :He has gained 8 pounds.? His body mass index is now 31.18.? We have discussed a weight reduction strategy.? We made plans to lose weight at a rate of one half of a pound per week.???5.?GERD without esophagitis - K21.9???Notes :His reflux symptoms are well-controlled with medication and no change in his regimen was necessary today. He is sleeping well.???6.?Barretts esophagus without dysplasia - K22.70???Notes :He has no symptoms of dysphagia reflux today. His surveillance with upper endoscopy will continue with the appropriate intervals..???7.?Spondylosis of cervical region without myelopathy or radiculopathy - M47.812???Notes :The pain in his arms does not appear to radiate from the neck. Range of motion was intact in free of pain.??? Plan: * Treatment: 2.?Mixed hyperlipidemia?LAB: PROFILE, FASTING (COMPREHENSIVE METABOLIC) ?LAB: LIPID PANEL ?LAB: PSA, TOTAL ?LAB: CBC w DIFF 3.?BPH (benign prostatic hyp erplasia)?LAB: PROFILE, FASTING (COMPREHENSIVE METABOLIC) ?LAB: LIPID PANEL ?LAB: PSA, TOTAL ?LAB: CBC w DIFF 4.?Overweight?LAB: PROFILE, FASTING (COMPREHENSIVE METABOLIC) ?LAB: LIPID PANEL ?LAB: PSA, TOTAL ?LAB: CBC w DIFF 5.?Others? Continue Tylenol Tablet, 325 MG, 1 tablet as needed, Orally, every 4 hrs As needed for pain or fever;?Continue Omeprazole Capsule Delayed Release, 20 MG, TAKE 1 CAPSULE BY MOUTH EVERY DAY, Orally, Once a day.?? * Procedure Codes:? * Preventive Medicine:? ??Counseling:?Care goal follow-up plan:?Counseling for abnormal BMI given?Yes ?Above Normal BMI Follow-up?Dietary management education, guidance, and counseling, Dietary needs education, Exercise promotion: strength training, Exercise promotion: stretching, Feeding regime, Giving encouragement to exercise, Lifestyle education regarding diet, Nutrition / feeding management, Nutrition therapy, Prescribed activity/exercise education, Prescribed diet education, Prescribed dietary intake, Special diet education, Weight monitoring , Intervention, Order not done: Medical or Other reason not done * Follow Up:?6 Months, 11:00 o n a future date (Reason: OV, Routine check-up) * Images: * Sign off status: Completed true * Provider:?Nicola Magana MD Date:?10/2024 Generated for Usama kuhn/Jerrica/eTransmitting on:?08/22/2024 03:00 PM EDT History and Physical Notes * HPI (History [...]
--- OUTSIDE RECORDS SUMMARY | 2024-08-22 15:00 | XMS_ITS ---
Author Organization [facility] Address [address] [place] [address] Care Team Providers Care Fiscal Assistant Name Role Phone Chino MORENO, Nicola Primary Care Provider Unavailab Nicola Munoz Unavailable [phone] REASON FOR VISIT reject poop sample Encounters Encounter Location Date Provider Diagnosis [facility] [address] [place] [address] 04/04/2023 Nicola Mandujano Plan Of Treatment No Information Progress Notes * GARY HARRIS JrDOB: (57 yo M)Acc No.[id number]:04/04/2023 Patient:?GARY HARRIS :1965???Age:57 Y???Sex:Male Address:[address] [place] [address], [address] Subjective: * Chief Complaints: * ???Reject poop sample * Medical History:? * Surgical History:? * Hospitalization/Major Diagno stic Procedure:? * Medications:? Objective: Assessment: Plan: * Treatment: * Procedure Codes:? * true * Date:? Generated for Brandyi bam/Jerrica/eTransmitting on:?08/22/2024 02:59 PM EDT
--- OUTSIDE RECORDS SUMMARY | 2024-08-22 15:00 | XMS_ITS ---
Author Organization Nicola Magana III, MD Address [address] [place] [address] [place] [address] Care Team Providers Care Top Dyeing Machine Tender Name Role Phone Nicola Magana Primary Care Provider [phone] REASON FOR VISIT annual exam Social History Sex Assigned At : Social History Observation Description Sex Assigned At Male Encounters Encounter Location Date Provider Diagnosis Nicola Magana III, MD [address] [place] [address] [place] [address] 07/28/2024 Nicola Magana Plan Of Treatment Next Appt Details Provider Name:Nicola Magana, 02/20/2025 11:00:00 AM, [address] [place] [address] [place], [address], Provider Name:Nicola Magana, 08/19/2025 11:00:00 AM, [address] [place] [address] [place], [address], Progress Notes * Bridger CASTANEDA RDOB:[birth year] (58 yo M)Acc No.[id number]:07/28/2024 Progress Notes Patient:?Bridger CASTANEDA Provider:?Nicola Magana MD :1965???Age:58 Y???Sex:Male Beau e:07/28/2024 Address:[address] [place], [place] [id number] Subjective: * Chief Complaints: * ???1. Annual exam. * Medical History:? Objective: * Vitals:? Assessment: Plan: * Treatment: * Images: * The named appointment provid er may or may not be the originator of this progress note, and it is not deemed complete until electronically signed by the appointment provider. Sign off status: Pending * Provider:?Nicola Magana MD Date:?07/12 Generated for Usama kuhn/Jerrica/Abranitting on:?08/22/2024 03:00 PM EDT
--- OUTSIDE RECORDS SUMMARY | 2024-08-22 15:00 | XMS_ITS ---
Author Organization Nicola Magana III, MD Address [address] [place] [address] [place] [address] Care Team Providers Care Day Treatment Clinician/Art Therapist Name Role Phone Nicola Magana Primary Care Provider [phone] REASON FOR VISIT Rx Request Medications Medication SIG (Take, Route, Fr equency, Duration) Notes Start Date End Date Status Tylenol 325 MG 1 tablet as needed Orally every 4 hrs As needed for pain or fever 07/08/2024 Acti ve Social History Sex Assigned At : Social History Observation Description Sex Assigned At Male Encounters Encounter Location Date Provider Diagnosis Nicola Magnaa III, MD [address] [place] [address] [place] [address] 07/08/2024 Nicola Magana Plan Of Treatment Medication Medication Name Sig Start Date Stop Date Notes Tylenol 325 MG 1 tablet as needed Orally every 4 hrs 07/08 Next Appt Details Provider Name:Nicola Magana, 02/20/2025 11:00:00 AM, [address] [place] [address] [place], [address], Provider Name:Nicola Magana, 08/19/2025 11:00:00 AM, [address] [place] [address] [place], [address], Progress Notes * Bridger CASTANEDA RDOB:[birth year] (58 yo M)Acc No.[id number]:07/08/2024 Patient:?Bridger CASTANEDA :1965???Age:58 Y???Sex:Male Address:[address] [place] [address], [place], [address] * Refills? Start Tylenol Tablet, 325 MG, Orally, 120, 1 tablet as needed, every 4 hrs, Refills=11 * true * Date:? Generated for Usama kuhn/Jerrica/Soniasmitting on:?08/22/2024 03:00 PM EDT
--- OUTSIDE RECORDS SUMMARY | 2024-08-22 15:00 | XMS_ITS ---
Author Organization [facility] Address [address] [place] [address] Care Team Providers Care Manifest/Order Organizer Print Orders Name Role Phone Chino MORENO, Nicola Primary Care Provider UnavailNicola Peterson Unavailable [phone] REASON FOR VISIT Check on his pharmacy/ updated in system. Medications Medication SIG (Take, Route, Fr equency, Duration) Notes Start Date End Date Status Azithromycin 500 MG 1 tablet Orally Daily for 3 days 04/10/2023 Active Encounters Encounter Location Date Provider Diagnosis [facility] [address] [place] [address] 04/10/2023 Nicola Mandujano Plan Of Treatment Medication Medication Name Sig Start Date Stop Date Notes Azithromycin 500 MG 1 tablet Orally Daily for 3 days 04/10 Progress Notes * GARY HARRIS JrDOB: (57 yo M)Acc No.[id number]:04/10/2023 Patient:?GARY HARRIS :1965???Age:57 Y???Sex:Male Address:[address] [place] [address], [address] * Refills? Start Azithromycin Tablet, 500 MG, Orally, 3 Tablet, 1 tablet, Daily, 3 days, Refills=0 * true * Date:? Generated for Usama kuhn/Jerrica/eTransmitting on:?08/22/2024 02:59 PM EDT
--- OUTSIDE RECORDS SUMMARY | 2024-08-22 15:00 | XMS_ITS | Patient Health Record ---
Author Organization [facility] Address [address] [place] [address] Care Team Providers Care Forepart Rounder Name Role Phone Nicola Magana MD Primary Care Provider Unavailab Nicola Munoz Unavailable [phone] Allergies No Known Allergies Reason For Referral No Information Medications Medication SIG (Take, Route, Frequency, Duration) [...] morning meal Orally Once a day Active Immunizations Vaccine Route Administration Date Status Comme nts Influenza Unknown 02/09/2019 Administered Social History Tobacco Use: Social History Observation Description Date Details (start date - stop date) Never Smoker NA - NA Tobacco Use/Smoking Question Answer Notes Patient is a nonsmoker Alcohol Screen Question Answer Notes Did you have a drink containing alcohol in the p ast year? No Points 0 Interpretation Negative Section Notes: Nonsmoker; no alcohol Nonsmoker; no alcohol Nonsmoker; no alcohol Problems Problem Type SNOMED Code ICD Code Onset Dates Problem Status W/U Status Risk Notes Problem 150185953 Encounter for screening for malignant neoplasm of colon (Z12.11) Active confirmed Problem 554186053 Prieto's esophagus without dysplasia (K22.70) Active confirmed Problem Diverticular disease of colon (887698255) Diverticulosis of large intestine without perforation or abscess without bleeding (K57.30) Active confirmed Problem 684719182 Gastroesophageal reflux disease without esophagitis (K21.9) Active confirmed Problem 584450193 Gastroesophageal reflux disease, esophagitis presence not specified (K21.9) Active confirmed Problem Gastroesophageal reflux disease (013663821) GERD (gastroesophageal reflux disease) (K21.9) Active confirmed Problem Prieto esophagus (081279007) Prieto esophagus (K22.70) Active confirmed Problem 98926430 Diarrhea, unspecified type (R19.7) Active confirmed Problem 37937646 Bowel habit changes (R19.4) Active confirmed Plan Of Treatment Pending Test Test Name Order Date LIVER [...] OF [place] [address] [place] [address] [id number] CECY Zayas GARY Self - patient is the insured MEDICAID OF [facility] [address] [place] [address] [id number] SAVJR Zayas GARY Self - patient is the insured Medical (General) History Medical History History ICD Code Denies [place],DM,CVA,Lung disease,renal dise ase GERD-upper endoscopy in December [...]
--- OUTSIDE RECORDS SUMMARY | 2024-08-22 15:01 | XMS_ITS | Patient Health Record ---
Author Organization Nicola Magana III, MD Address [address] [place] [address] [place] [address] Care Team Providers Care Technical Sales Associate Name Role Phone Nicola Magana Primary Care Provider Allergies Allergen (clinical drug ingredient) Drug/Non Drug Allergy documented on EMR Reaction Allergy Type Onset Date Status No Known Drug Allergy Unknown Drug Allergy Active Reason For Referral Reason shortness of breath evaluate for sleep apnea Diagnosis 1 Shortness of breath (R06.02) Referral Organization Nicola Magana III, MD Referring Provider First Name Nicola Referring Provider Last Name Magana Referring Provider Speciality Internal M edicine Referred Provider AMOS BETANCUR Referred Provider Specialty Pulmonary [facility] General Notes Sonia Renteria CM 01/07/2024 04:28:55 PM EDT > Ref/progress notes faxed to Dr Martines office asking them to contact patient video game programmer to set up this appt , Sonia Renteria CMA 01/29/2024 11:20:08 AM EDT > Called [facility] spoke to rotary peel oven tender they stated they have tried to contact model making supervisor several times to set up pt an appt and have sent them a letter also . I called freelance programmer/app developer today had to leave message asking her to contact [facility] to set up appt for [...] EVERY DAY Orally Once a day Active Immunizations Vaccine Route Administration Date Status Comme nts COVID- 19 Vaccine Unknown 09/09/2020 Administered COVID- 19 Vaccine Unknown 10/02/2020 Administered SHINGRIX Unknown 04/08/2022 Administered Flu-IIv4pf Unknown 03/10/2018 Administered Comirnaty Pfizer COVID-19 12+ Unknown 04/09/2024 Admini stered Influenza no Preserv 3 and > Unknown 02/09/2021 Adminis tered Comirnaty Pfizer COVID-19 12+ Unknown 02/27/2023 Admini stered Flu-IIv4pf Unknown 03/12/2016 Administered COVID PFIZER Unknown 10/02/2020 Administered COVID PFIZER Unknown 09/09/2020 Administered COVID Pfizer Bivalent Unknown 04/08/2022 Administered SHINGRIX Unknown 08/18/2022 Administered Influenza no Preserv 3 and > Unknown 04/04/2010 Adminis tered COVID PFIZER Unknown 03/05/2021 Administered Flu-ccIIv3, p-free Unknown 04/09/2024 Administered Td (adult) Unknown 09/14/2015 Administered Social History Tobacco Use: Social History [...] Problem Status W/U Status Risk Notes Problem 977815071 Overweight (E66.3) Active confirmed He has gained 8 pounds. His body mass index is now 31.18. We have discussed a weight reduction strategy. We made plans to lose weight at a rate of one half of a pound per week. Problem Depression (344027849) Depression (F32.9) Active confirmed His sertraline was discontinued. No side effects. It then encountered. He is now involved with the [employer]. I have requested he be seen by a prescriber.I amm seeing him once a week to ensure stability. Stability is in a relationship with an appropriate mental health provider. Problem Chest pain (43393160) Chest pain (R07.9) Active confirmed He has noted some exertional chest pain accompanied by shortness of breath. A cardiac evaluation has been ordered with an EKG stress test and echocardiogram . Problem 398189886840914 Obesity (BMI 30.0-34.9) (E66.9) Active confirmed His body mass index is 30 with a poor pound weight gain. We discussed his weight loss strategy and made a plan to lose weight at a rate of one half of a pound per week. Problem 45970139 Anxiety (F41.9) Active confirmed He has complained recently of anxiety, which is why he is on the sertraline for generalized anxiety disorder. Problem 898638733 Mixed hyperlipidemia (E78.2) Active confirmed He has gained weight. No current fasting lipids are available. I have ordered a profile to be done prior to next visit. No change in his regimen was necessary. Problem Feeling suicidal (913683148) Suicidal ideations (R45.851) Active confirmed Problem 448908665 GERD without esophagitis (K21.9) Active confirmed His reflux symptoms are well-controlle d with medication and no change in his regimen was necessary today. He is sleeping well. Problem Benign prostatic hyperplasia (402341845) BPH (benign prostatic hyperplasia) (N40.0) Active confirmed He rises from sleep once a night. We have discussed lifestyle modifications he could make to reduce nocturia. Problem 98587699 Hiatal hernia (K44.9) Active confirmed No symptoms are present lately. He will continue with current therapy. Problem 965567051 Barretts esophagus without dysplasia (K22.70) Active confirmed He has no symptoms of dysphagia reflux today. His surveillance with upper endoscopy will continue with the appropriate intervals.. Problem 9756866 Learning disability (F81.9) Active confirmed His cognitive functions and bodily habitus, have remained stable. The [employer] [facility] [employer] has placed him in a chcf house. He lives with his mother. He says he is very happy there. Problem 251706317391 Daytime somnolence (R40.0) Active confirmed I have ordered a sleep study to evaluate him for sleep apnea. Problem 284450611 Spondylosis of cervical region without myelopathy or radiculopathy (M47.812) Active confirmed The pain in his arms does not appear to radiate from the neck. Range of motion was intact in free of pain. Problem 284568485 History of Irene-Parkinson- White (WPW) syndrome (Z86.79) Active confirmed I do not have an EKG tracing. If I cannot get one from old records. I will to a tracing in the office. He is asymptomatic at this time. Vital Signs Heart Rate 84 /min 08/13/2024 Temperature 98.1 degrees Fahrenheit 08/13/2024 Respiratory Rate 16 /min 08/13/2024 Blood pressure diastolic 80 mm Hg 08/13/2024 Height 70 in 08/13/2024 Blood pressure systolic 135 mm Hg 08/13/2024 Weight 217 lbs 08/13/2024 BMI 31.13 kg/m2 08/13/2024 Encounters Encounter Location Date Provider Diagnosis Nicola Magana III, MD [address] [place] [address] [place] [address] 10/23/2023 Nicola Laurenne Learning disability F81.9 ; Chest pain R07.9 ; Mixed hyperlipidemia E78.2 ; GERD without esophagitis K21.9 ; Barretts esophagus without dysplasia K22.70 ; Spondylosis of cervical region without myelopathy or radiculopathy M47.812 and Obesity (BMI 30.0-34.9) E66.9 Nicola Magana III, MD [address] [place] [address] [place] [address] 11/20/2023 Nicola Luciorne Learning disability F81.9 ; Hiatal hernia K44.9 ; GERD without esophagitis K21.9 ; Spondylosis of cervical region without myelopathy or radiculopathy M47.812 and Mixed hyperlipidemia E78.2 Nicola Magana III, MD [address] [place] [address] [place] [address] 01/01/2024 Nicola Magana Learning disability F81.9 ; Daytime somnolence R40.0 ; Snoring R06.83 ; Mixed hyperlipidemia E78.2 ; Spondylosis of cervical region without myelopathy or radiculopathy M47.812 ; Hiatal hernia K44.9 and GERD without esophagitis K21.9 Nicola Magana III, MD [address] [place] [address] [place] [address] 08/13/2024 Nicola Magana Learning disability F81.9 ; Mixed hyperlipidemia E78.2 ; BPH (benign prostatic hyperplasia) N40.0 ; Overweight E66.3 ; GERD without esophagitis K21.9 ; Barretts esophagus without dysplasia K22.70 and Spondylosis of cervical region without myelopathy or radiculopathy M47.812 Nicola Magana III, MD [address] [place] [address] [place] [address] 11/21/2023 Nicola Luciorne Learning disability F81.9 Nicola Magana III, MD [address] [place] [address] [place] [address] 11/27/2023 Nicola Luciorne Learning disability F81.9 Nicola Magana III, MD [address] [place] [address] [place] [address] 02/04/2024 Nicola Magana III, MD [address] [place] [address] [place] [address] 06/23/2024 Nicola Magana III, MD [address] [place] [address] [place] [address] 06/23/2024 Nicola Magana III, MD [address] [place] [address] [place] [address] 06/24/2024 Nicola Magana III, MD [address] [place] [address] [place] [address] 07/08/2024 Nicola Magana Assessments Encounter Date Diagnosis (ICD Code) Assessment Notes Treat ment Notes Treatment Clinical Notes 10/23/2023 Chest pain (ICD-10 - R07.9) He has noted some exertional chest pain accompanied by shortness of breath. A cardiac evaluation has been ordered with an EKG stress test and echocardiogram. 10/23/2023 Learning disability (ICD-10 - F81.9) His cognitive functions and bodily habitus, have remained stable. The [employer] is now involved. His mother is less anxious. 11/20/2023 Hiatal hernia (ICD-1 0 - K44.9) No symptoms are present lately. He will continue with current therapy. 11/20/2023 Learning disability (ICD-10 - F81.9) His cognitive functions and bodily habitus, have remained stable. The [employer] is now involved. His mother is less anxious. 01/01/2024 Learning disability (ICD-10 - F81.9) His cognitive functions and bodily habitus, have remained stable. The [employer] is now involved. His mother is less anxious. 01/01/2024 Daytime somnolence (ICD-10 - R40.0) I have ordered a sleep study to evaluate him for sleep apnea. 08/13/2024 Mixed hyperlipidemia (ICD-10 - E78.2) He has gained weight. No current fasting lipids are available. I have ordered a profile to be done prior to next visit. No change in his regimen was necessary. 08/13/2024 Learning disability (ICD-10 - F81.9) His cognitive functions and bodily habitus, have remained stable. The [employer] has placed him in a chcf house. He lives with his mother. He says he is very happy there. 11/21/2023 Learning disability (ICD-10 - F81.9) His cognitive functions and bodily habitus, have remained stable. The [employer] is now involved. His mother is less anxious. 11/27/2023 Learning disability (ICD-10 - F81.9) His cognitive functions and bodily habitus, have remained stable. The [employer] is now involved. His mother is less anxious. 10/23/2023 Mixed hyperlipidemia (ICD-10 - E78.2) His [...] have excessive snoring very stiff at the [facility]. 08/13/2024 BPH (benign prostati c hyperplasia) (ICD-10 - N40.0) He rises from sleep once a night. We have discussed lifestyle modifications he could make to reduce nocturia. 10/23/2023 GERD without esophagitis (ICD-10 - K21.9) [...] stable. We reviewed his diet and nutrition. 08/13/2024 Overweight (ICD-10 - E66.3) He has gained 8 pounds. His body mass index is now 31.18. We have discussed a weight reduction strategy. We made plans to lose weight at a rate of one half of a pound per week. 10/23/2023 Barretts esophagus without dysplasia (ICD-10 - [...] motion was intact in free of pain. 08/13/2024 GERD without esophagitis (ICD-10 - K21.9) [...] lately. He will continue with current therapy. 08/13/2024 Barretts esophagus without dysplasia (ICD-10 - K22.70) He has no symptoms of dysphagia reflux today. His surveillance with upper endoscopy will continue with the appropriate intervals.. 10/23/2023 Obesity (BMI 30.0-34.9) (ICD-10 - E66.9) [...] necessary today. He is sleeping well. 08/13/2024 Spondylosis of cervical region without myelopathy or radiculopathy (ICD-10 - M47.812) The pain in his arms does not appear to radiate from the neck. Range of motion was intact in free of pain. Plan Of Treatment Pending Test Test Name Order Date PROFILE, FASTING (COMPREHENSIVE METABOLI C) 03/31/2019 PROFILE, FASTING (COMPREHENSIVE METABOLI C) 03/09/2020 PROFILE, FASTING (COMPREHENSIVE METABOLI C) 02/13/2018 PROFILE, FASTING (COMPREHENSIVE METABOLI C) 09/07/2021 PROFILE, FASTING (COMPREHENSIVE METABOLI C) 11/26/2018 PROFILE, FASTING (COMPREHENSIVE METABOLI C) 09/06/2020 PROFILE, FASTING (COMPREHENSIVE METABOLI C) 07/22/2018 PROFILE, FASTING (COMPREHENSIVE METABOLI C) 08/13/2024 PROFILE, RANDOM (COMPREHENSIVE METABOLIC ) 08/01/2019 PROFILE, RANDOM (COMPREHENSIVE METABOLIC ) 12/05/2019 LIPID PANEL 07/22/2018 LIPID PANEL 08/13/2024 LIPID PANEL 08/01/2019 LIPID PANEL 03/31/2019 LIPID PANEL 03/09/2020 LIPID PANEL 02/13/2018 LIPID PANEL 11/26/2018 LIPID PANEL 12/05/2019 LIPID PANEL 09/06/2020 FREE T4 (FT4) 09/07/2021 TSH (THYROID STIMULATING HORMONE) 2021 PSA, TOTAL 08/13/2024 PSA, TOTAL 09/07/2021 CBC w DIFF 09/07/2021 CBC w DIFF 09/06/2020 CBC w DIFF 07/22/2018 CBC w DIFF 08/01/2019 CBC w DIFF 03/31/2019 CBC w DIFF 03/09/2020 CBC w DIFF 08/13/2024 CBC w DIFF 02/13/2018 CBC w DIFF 11/26/2018 CBC w DIFF 12/05/2019 XR KNEE RT 4 VIEWS 03/31/2019 XR LOWER LEG RT 03/31/2019 XR LUMBAR SPINE 4+ VIEWS 06/26/2018 Echocardiogram 10/23/2023 Lipid Panel 09/07/2021 ECG 12 lead EKG 03/28/2023 Exercise Stress Test 10/23/2023 Next Appt Details Provider Name:Nicola Magana, 02/20/2025 11:00:00 AM, [address] [place] [address] [address], [place], [address], Provider Name:Nicola Magana, 08/19/2025 11:00:00 AM, [address] [place] [address] [address], [place], [address], Insurance Providers Payer Name Payer Address Payer Phone Subscriber Number Group Number Insured Name Patient Relationship to Insured Coverage Start Date Coverage End Date MEDICARE NGS [address] [place] [address] [id number] Bridger Ramachandran Self - patient is the insured MEDICAID [address] [place] [id number] Bridger Ramachandran Self - patient is the insured Medical [...] nega tive cardiac workup Suicidal ideations R45.851 The patient has a history of neck pain, heartburn, and inflammation in his esophagus known as Barito esophagus. He also has a knee issue that causes trouble with exercise. Surgical History Surgery Date(Month/Year) tonsillectomy and adenoidectomy 1975 bunionectomy/bilateral, [facility], Dr. Pulido 2003 esophagogastric duodenoscopy , [facility], Dr. Nicola Mandujano, positive for Prieto's epithelium 12/2016 No history Hospitalization History Reason Date(Month/Year) No history
--- OUTSIDE RECORDS SUMMARY | 2024-08-22 15:01 | XMS_ITS ---
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 Problem Gastroesophageal reflux disease (748215560) GERD (gastroesophageal reflux disease) (K21.9) Active confirmed Encounters Encounter Location Date Provider Diagnosis [facility] [place] [address] [place] [id number] [place]/30/2023 Nicola Mandujano Diverticulosis of large intestine without perforation or abscess without bleeding K57.30 ; Internal hemorrhoids K64.8 ; Diarrhea R19.7 ; Frankel esophagus K22.70 ; Hiatal hernia K44.9 and GERD (gastroesophageal reflux disease) K21.9 Assessments Encounter Date Diagnosis (ICD Code) Assessment Notes Treatment Notes Treatment Clinical Notes Section Notes 04/30/2023 Diverticulosis of large intestine without perforation or abscess without bleeding (ICD-10 - K57.30) 04/30/2023 Internal hemorrhoids (ICD-10 - K64.8) 04/30/2023 Diarrhea (ICD-10 - R19.7) 04/30/2023 Frankel esophagus (ICD-10 - K22.70) 04/30/2023 Hiatal hernia (ICD-10 - K44.9) 04/30/2023 GERD (gastroesophageal reflux disease) (ICD-10 - K21.9) Plan Of Treatment No Information Progress Notes * GARY HARRIS JrDOB: (58 yo M)Acc No.[id number]:04/30/2023 EGD and COL/MAC Patient:?GARY HARRIS Jr Provider:?Nicola Mandujano MD :1965???Age:57 Y???Sex:Male Beau e:04/30/2023 Address:[address] [place] [address] Pcp:Nicola Magana MD Subjective: * Chief Complaints: * ???1. Gerd,diarrhea, frankel 's,bowel habit changes. * Medical History:? Objective: * Vitals:? Assessment: * Assessment: 1.?Diverticulosis of large i ntestine without perforation or abscess without bleeding - K57.30 (Primary)???2.?Internal hemorrhoids - K64.8???3.?Diarrhea - R19.7???4.?Frankel esophagus - K22.70???5.?Hiatal hernia - K44.9???6.?GERD (gastroesophageal reflux disease) - K21.9??? Plan: * Treatment: * Procedure Codes:?98556 COLON OSCOPY AND BIOPSY, 0529F INTRVL 3+YRS PTS CLNSCP DOCD, 0528F RCMND FLW-UP 10 YRS DOCD, Modifiers: 1P , 53682 UPPER GI ENDOSCOPY, BIOPSY * * The named appointment provid er may or may not be the originator of this progress note, and it is not deemed complete until electronically signed by the appointment provider. Sign off status: Pending * Provider:?Nicola Mandujano MD Date:? 023 Generated for Usama kuhn/Jerrica/eTransmitting on:?08/22/2024 03:00 PM EDT
== END 2024-08-22 13:40 | disposition home or self-care (01) ==
LOC: HO.HPS 13:24
PROVIDERS: PCP Internal Medicine Medical Oncology; Visit Provider Internal Medicine Pulmonary Disease
DX: G47.33 Obstructive sleep apnea (adult) (pediatric) (principal)
CPT/HCPCS: 99213

== ENCOUNTER → 2024-08-22 13:24 | Outpatient (BNVA) | payer MEDICARE, MEDICAID, SELFPAY | PROVIDERS: PCP Internal Medicine Medical Oncology; Visit Provider Internal Medicine Pulmonary Disease | DX: G47.33 Obstructive sleep apnea (adult) (pediatric) (principal) | CPT/HCPCS: 99212 ==

== ENCOUNTER 2024-10-27 09:59 | Outpatient (AMB) | payer MEDICARE, MEDICAID, SELFPAY ==
--- OUTSIDE RECORDS SUMMARY | 2024-10-27 10:24 | XMS_ITS ---
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 Problem Gastroesophageal reflux disease (797316844) GERD (gastroesophageal reflux disease) (K21.9) Active confirmed Encounters Encounter Location Date Provider Diagnosis [facility] [place] [address] [place], [place] [id number] 04/30/2023 Nicola Mandujano Diverticulosis of large intestine [...] Information Progress Notes * GARY HARRIS JrDOB: (59 yo M)Acc No.[id number]:04/30/2023 EGD and COL/MAC Patient:?GARY HARRIS Jr Provider:?Nicola Mandujano MD :1965???Age:57 Y???Sex:Male Baeu e:04/30/2023 Address:[address] [place] [address] Pcp:Nicola Magana MD Subjective: * Chief Complaints: * ???1. Gerd,diarrhea, frankel 's,bowel habit changes. * Medical History:? Objective: * Vitals:? Assessment: * Assessment: 1.?Diverticulosis of large i ntestine without perforation or abscess without bleeding - K57.30 (Primary)???2.?Internal hemorrhoids - K64.8???3.?Diarrhea - R19.7???4.?Frankel esophagus - K22.70???5.?Hiatal hernia - K44.9???6.?GERD (gastroesophageal reflux disease) - K21.9??? Plan: * Treatment: * Procedure Codes:?36001 COLON OSCOPY AND BIOPSY, 0529F INTRVL 3+YRS PTS CLNSCP DOCD, 0528F RCMND FLW-UP 10 YRS DOCD, Modifiers: 1P , 82469 UPPER GI ENDOSCOPY, BIOPSY * * The named appointment provid er may or may not be the originator of this progress note, and it is not deemed complete until electronically signed by the appointment provider. Sign off status: Pending * Provider:?Nicola Mandujano MD Date:? 023 Generated for Usama kuhn/Jerrica/eTransmitting on:?10/27/2024 10:24 AM EDT
--- OUTSIDE RECORDS SUMMARY | 2024-10-27 10:24 | XMS_ITS | Patient Health Record ---
Author Organization Nicola Magana III, MD Address [address] [place] [address] [place] [address] Care Team Providers Care Speeder Frame Tender Name Role Phone Nicola Magana Primary [...] AMOS BETANCUR Referred Provider Specialty [facility] General Notes Sonia Renteria CM 01/07/2024 04:28:55 PM EDT > Ref/progress notes faxed to Dr Martines office asking them to contact patient programmer analyst health it to set up this appt , Sonia Renteria CMA 01/29/2024 11:20:08 AM EDT > Called [facility] spoke to ground transportation operator they stated they have tried to contact winding department supervisor several times to set up pt an appt and have sent them a letter also . I called disability program navigator today had to leave message asking her to contact [facility] to set up appt for pt Referral Priority Routine Referral Appointment Date 03/07/2024 Medications Medication SIG (Take, Route, Frequency, Duration) Notes Start Date End Date Status QUEtiapine Fumarate 100 MG as directed O rally one three times a day 01/11/2023 Active Omeprazole 20 MG TAKE (1) CAPSULE BY MOUTH DAILY Active Tylenol 325 MG 1 tablet as needed Orally every 4 hrs As needed for pain or fever 07/08/2024 Active Simvastatin 10 MG TAKE 1 TABLET BY [facility] TH EVERY DAY Orally Once a day for 90 days Active ARIPiprazole 15 MG Oral A ctive traZODone HCl 50 MG TAKE 1 TABLET BY [facility] TH EVERY NIGHT AT BEDTIME NEEDED Oral Active Immunizations Vaccine Route Administration Date Status [...] Problem Status W/U Status Risk Notes Problem 769853435 Overweight (E66.3) Active confirmed He has gained 8 pounds. His body mass index is now 31.18. We have discussed a weight reduction strategy. We made plans to lose weight at a rate of one half of a pound per week. Problem Depression (631101230) Depression (F32.9) Active confirmed His sertraline was discontinued. No side effects. It then encountered. He is now involved with the [employer]. I have requested he be seen by a prescriber.I amm seeing him once a week to ensure stability. Stability is in a relationship with an appropriate mental health provider. Problem Chest pain (R07.9) Active confirmed He has noted some exertional chest pain accompanied by shortness of breath. A cardiac evaluation has been ordered with an EKG stress test and echocardiogram . Problem 301181720813103 Obesity (BMI 30.0-34.9) (E66.9) Active confirmed His body mass index is 30 with a poor pound weight gain. We discussed his weight loss strategy and made a plan to lose weight at a rate of one half of a pound per week. Problem 80677119 Anxiety (F41.9) Active confirmed He has complained recently of anxiety, which is why he is on the sertraline for generalized anxiety disorder. Problem 120935783 Mixed hyperlipidemia (E78.2) Active confirmed He has gained weight. No current fasting lipids are available. I have ordered a profile to be done prior to next visit. No change in his regimen was necessary. Problem Feeling suicidal (890741957) Suicidal ideations (R45.851) Active confirmed Problem 696246426 GERD without esophagitis (K21.9) Active confirmed His reflux symptoms are well-controlle d with medication and no change in his regimen was necessary today. He is sleeping well. Problem Benign prostatic hyperplasia (157636855) BPH (benign prostatic hyperplasia) (N40.0) Active confirmed He rises from sleep once a night. We have discussed lifestyle modifications he could make to reduce nocturia. Problem 06880417 Hiatal hernia (K44.9) Active confirmed No symptoms are present lately. He will continue with current therapy. Problem 366151456 Barretts esophagus without dysplasia (K22.70) Active confirmed He has no symptoms of dysphagia reflux today. His surveillance with upper endoscopy will continue with the appropriate intervals.. Problem 4346487 Learning disability (F81.9) Active confirmed His cognitive functions and bodily habitus, have remained stable. [facility]. He lives with his mother. He says he is very happy there. Problem 361649141460 Daytime somnolence (R40.0) Active confirmed I have ordered a sleep study to evaluate him for sleep apnea. 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 Range of motion was intact in free of pain. 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) [...] Date Provider Diagnosis Nicola Magana III, MD [address] [place] [address] [place] [address] 11/20/2023 Nicola Luciorne Learning disability F81.9 ; Hiatal hernia K44.9 ; GERD without esophagitis K21.9 ; Spondylosis of cervical region without myelopathy or radiculopathy M47.812 and Mixed hyperlipidemia E78.2 Nicola Magana III, MD [address] [place] [address] [place] [address] 01/01/2024 Nicola Luciorne Learning disability F81.9 ; Daytime somnolence R40.0 ; Snoring R06.83 ; Mixed hyperlipidemia E78.2 ; Spondylosis of cervical region without myelopathy or radiculopathy M47.812 ; Hiatal hernia K44.9 and GERD without esophagitis K21.9 Nicola Magana III, MD [address] [place] [address] [place] [address] 08/13/2024 Nicola Magana Learning disability F81.9 ; Mixed hyperlipidemia E78.2 ; BPH (benign prostatic hyperplasia) N40.0 ; Overweight E66.3 ; GERD without esophagitis K21.9 ; Barretts esophagus without dysplasia K22.70 and Spondylosis of cervical region without myelopathy or radiculopathy M47.812 Nicola Magana III, MD [address] [place] [address] [place] [address] 11/21/2023 Nicola Magana Learning disability F81.9 Nicola Magana III, MD [address] [facility] [place] [address] 11/27/2023 Nicola Magana Learning disability F81.9 Nicola Magana III, MD [address] [facility] [place] [address] 02/04/2024 Nicola Magana III, MD [address] [place] [address] [place] [address] 06/23/2024 Nicola Magana III, MD [address] [place] [address] [place] [address] 06/23/2024 Nicola Magana III, MD [address] [place] [address] [place] [address] 06/24/2024 Nicola Magana III, MD [address] [place] [address] [place] [address] 07/08/2024 Nicola Magana Assessments Encounter Date Diagnosis (ICD Code) Assessment Notes Treat ment Notes Treatment Clinical Notes 11/20/2023 Hiatal hernia (ICD-1 0 - K44.9) No symptoms are present lately. He will continue with current therapy. 11/20/2023 Learning disability (ICD-10 - F81.9) His cognitive functions and bodily habitus, have remained stable. The [employer] [facility] is now involved. His mother is less anxious. 01/01/2024 Learning disability (ICD-10 - F81.9) His cognitive functions and bodily habitus, have remained stable. The [employer] [facility] [employer] is now involved. His mother is less [...] and bodily habitus, have remained stable. The [employer] [facility] has placed him in a long term house. He lives with his mother. He says he is very happy there. 11/21/2023 Learning disability (ICD-10 - F81.9) His cognitive functions and bodily habitus, have remained stable. The [employer] is now involved. His mother is less anxious. 11/27/2023 Learning disability (ICD-10 - F81.9) His cognitive functions and bodily habitus, have remained stable. The [employer] is now involved. His mother is less anxious. 11/20/2023 GERD without esophagitis (ICD-10 - K21.9) His reflux symptoms are well-controlled with medication and no change in his regimen was necessary today. He is sleeping well. 01/01/2024 Snoring (ICD-10 - R06.83) He has been witnessed to have excessive snoring very stiff at the [facility]p. 08/13/2024 BPH (benign prostati c hyperplasia) (ICD-10 - N40.0) He rises from sleep once a night. We have discussed lifestyle modifications he could make to reduce nocturia. 11/20/2023 Spondylosis of cervical region without myelopathy [...] one half of a pound per week. 11/20/2023 Mixed hyperlipidemia (ICD-10 - E78.2) His [...] necessary today. He is sleeping well. 01/01/2024 Hiatal hernia (ICD-1 0 - K44.9) No symptoms are present lately. He will continue with current therapy. 08/13/2024 Barretts esophagus without dysplasia (ICD-10 - K22.70) He has no symptoms of dysphagia reflux today. His surveillance with upper endoscopy will continue with the appropriate intervals.. 01/01/2024 GERD without esophagitis (ICD-10 - K21.9) [...] Date PROFILE, FASTING (COMPREHENSIVE METABOLI C) 08/13/2024 PROFILE, FASTING (COMPREHENSIVE METABOLI C) 07/22/2018 PROFILE, FASTING (COMPREHENSIVE METABOLI C) 03/31/2019 PROFILE, FASTING (COMPREHENSIVE METABOLI C) 03/09/2020 PROFILE, FASTING (COMPREHENSIVE METABOLI C) 02/13/2018 PROFILE, FASTING (COMPREHENSIVE METABOLI C) 09/07/2021 PROFILE, FASTING (COMPREHENSIVE METABOLI C) 11/26/2018 PROFILE, FASTING (COMPREHENSIVE METABOLI C) 09/06/2020 PROFILE, RANDOM (COMPREHENSIVE METABOLIC ) 08/01/2019 PROFILE, RANDOM (COMPREHENSIVE METABOLIC ) 12/05/2019 LIPID PANEL 09/06/2020 LIPID PANEL 08/13/2024 LIPID PANEL 07/22/2018 LIPID PANEL 08/01/2019 LIPID PANEL 03/31/2019 LIPID PANEL 03/09/2020 LIPID PANEL 02/13/2018 LIPID PANEL 11/26/2018 LIPID PANEL 12/05/2019 FREE T4 (FT4) 09/07/2021 TSH (THYROID STIMULATING HORMONE) 2021 PSA, TOTAL 08/13/2024 PSA, TOTAL 09/07/2021 CBC w DIFF 11/26/2018 CBC w DIFF 12/05/2019 CBC w DIFF 09/07/2021 CBC w DIFF 09/06/2020 CBC w DIFF 07/22/2018 CBC w DIFF 08/01/2019 CBC w DIFF 03/31/2019 CBC w DIFF 08/13/2024 CBC w DIFF 03/09/2020 CBC w DIFF 02/13/2018 XR KNEE RT 4 VIEWS 03/31/2019 XR LOWER LEG RT 03/31/2019 XR LUMBAR SPINE 4+ VIEWS 06/26/2018 Echocardiogram 10/23/2023 Lipid Panel 09/07/2021 ECG 12 lead EKG 03/28/2023 Exercise Stress Test 10/23/2023 Next Appt Details Provider Name:Nicola Magana, 02/20/2025 11:00:00 AM, [address] [place] [address] [address], [place], [address], Provider Name:Nicola Magana, 08/19/2025 11:00:00 AM, [address] [place] [address] [address], [facility], [address], Insurance Providers Payer Name Payer Address Payer Phone Subscriber Number Group Number Insured Name Patient Relationship to Insured Coverage Start Date Coverage End Date MEDICARE NGS [address] [place] [place] [address] [id number] Bridger Ramachandran Self - patient is the insured MEDICAID [place] [address] [place] [id number] [phone] [id number] Bridger Ramachandran Self - patient is the [...] Surgery Date(Month/Year) tonsillectomy and adenoidectomy 1975 bunionectomy/bilateral, [facility], Dr. Pulido 2003 esophagogastric duodenoscopy , [facility], Dr. Nicola Mandujano, positive for Prieto's epithelium 12/2016 No history Hospitalization History Reason Date(Month/Year) No history
--- OUTSIDE RECORDS SUMMARY | 2024-10-27 10:24 | XMS_ITS ---
Author Organization Nicola Magana III, MD Address [address] [place] [address] [place] [address] Care Team Providers Care Compressor Station Operator Name Role Phone Nicola Magana Primary Care [...] Problem Status W/U Status Risk Notes Problem 266270214 Overweight (E66.3) Active confirmed He has gained [...] Date Provider Diagnosis Nicola Magana III, MD [address] [place] [address] [address] [place], [place] [address] 08/13/2024 Nicola Magana Learning disability F81.9 ; [...] and bodily habitus, have remained stable. [facility] [employer] [facility] has placed him in a assisted house. He lives with his mother. He [...] check-up Provider Name:Nicola Magana, 02/20/2025 11:00:00 AM, [address] [place] [address] [address], [place], [address], Provider Name:Nicola Magana, 08/19/2025 11:00:00 AM, [address] [place] [address] [address], [place], [address], Progress Notes * Bridger CASTANEDA RDOB:[birth year] (58 yo M)Acc No.[id number]:08/13/2024 Progress Notes Patient:?Bridger CASTANEDA Provider:?Nicola Magana MD :1965???Age:58 Y???Sex:Male Beau e:08/13/2024 Address:[address] [place] [address], Lupe monk [id number] Subjective: * Chief Complaints: * ???Annual exam [...] * Surgical History:?tonsillect uriel and adenoidectomy 1976bunionectomy/bilateral, [facility], Dr. Pulido 2004esophagogastric duodenoscopy, [facility], Dr. Nicola Mandujano, positive for Prieto's epithelium [...] year??No ?Points?0 ?Interpretation?Negative ???He was born at [place], [place]. He is single and has no [...] and bodily habitus, have remained stable. [facility] [employer] [facility] has placed him in a assisted house.? He lives with his mother.? He [...] Magana MD Date:?10/2024 Generated for Usama kuhn/Jerrica/eTransmitting on:?10/27/2024 10:24 AM EDT History and Physical Notes * HPI [...]
--- OUTSIDE RECORDS SUMMARY | 2024-10-27 10:24 | XMS_ITS | Patient Health Record ---
Author Organization [facility] Address [address] [place] [address] Care Team Providers Care Crts Name Role Phone Nicola Magana MD Primary Care Provider Unavailab Nicola Munoz Unavailable [phone] Allergies No Known Allergies Reason For Referral [...] Problem Status W/U Status Risk Notes Problem 175973650 Encounter for screening for malignant neoplasm of colon (Z12.11) Active confirmed Problem 472954816 Prieto's esophagus without dysplasia (K22.70) Active confirmed Problem Diverticular disease of colon (641303089) Diverticulosis of large intestine without perforation or abscess without bleeding (K57.30) Active confirmed Problem 257175915 Gastroesophageal reflux disease without esophagitis (K21.9) Active confirmed Problem 325456631 Gastroesophageal reflux disease, esophagitis presence not specified (K21.9) Active confirmed Problem Gastroesophageal reflux disease (097233630) GERD (gastroesophageal reflux disease) (K21.9) Active confirmed Problem Prieto esophagus (341144563) Prieto esophagus (K22.70) Active confirmed Problem 27295579 Diarrhea, unspecified type (R19.7) Active confirmed Problem 85809557 Bowel habit changes (R19.4) Active confirmed Plan [...] OF [place] [address] [place] [address] [id number] CECY Zayas GARY Self - patient is the insured MEDICAID OF [facility] [address] [place] [address] [id number] GARY HAYS Self - patient is the insured Medical (General) History Medical History History ICD Code Denies ND,DM,CVA,Lung disease,renal dise ase GERD-upper endoscopy in December [...]
--- OUTSIDE RECORDS SUMMARY | 2024-10-27 10:24 | XMS_ITS ---
Author Organization Nicola Magana III, MD Address [address] [place] [address] [place] [address] Care Team Providers Care Regional Office Coordinator Name Role Phone Nicola Magana Primary Care Provider REASON FOR VISIT Rx Request Medications Medication SIG (Take, Route, Fr equency, Duration) Notes Start Date End Date Status Tylenol 325 MG 1 tablet as needed Orally every 4 hrs As needed for pain or fever 07/08/2024 Acti ve Social History Sex Assigned At : Social History Observation Description Sex Assigned At Male Encounters Encounter Location Date Provider Diagnosis Nicola Magana III, MD [address] [place] [address] [place] [address] 07/08/2024 Nicola Magana Plan Of Treatment Medication Medication Name Sig Start Date Stop Date Notes Tylenol 325 MG 1 tablet as needed Orally every 4 hrs 07/08 Next Appt Details Provider Name:Nicola Magana, 02/20/2025 11:00:00 AM, [address] [place] [address] [place], [address], Provider Name:Nicola Magana, 08/19/2025 11:00:00 AM, [address] [place] [address] [place], [address], Progress Notes * Bridger CASTANEDA RDOB:[birth year] (58 yo M)Acc No.[id number]:07/08/2024 Patient:?Bridger CASTANEDA :1965???Age:58 Y???Sex:Male Address:[address] [place] [address], [place], [address] * Refills? Start Tylenol Tablet, 325 MG, Orally, 120, 1 tablet as needed, every 4 hrs, Refills=11 * true * Date:? Generated for Usama kuhn/Jerrica/eTransmitting on:?10/27/2024 10:23 AM EDT
--- OUTSIDE RECORDS SUMMARY | 2024-10-27 10:24 | XMS_ITS ---
Author Organization Nicola Magana III, MD Address [address] [place] [address] [place] [address] Care Team Providers Care Meat Cutting Block Repairer Name Role Phone Nicola Magana Primary Care Provider REASON FOR VISIT annual exam Social History Sex Assigned At : Social History Observation Description Sex Assigned At Male Encounters Encounter Location Date Provider Diagnosis Nicola Magana III, MD [address] [place] [address] [address] [facility] [place] [place] [address] 07/28/2024 Nicola Magana Plan Of Treatment Next Appt Details Provider Name:Nicola Magana, 02/20/2025 11:00:00 AM, [address] [place] [address] [place], [address], Provider Name:Nicola Magana, 08/19/2025 11:00:00 AM, [address] [place] [address] [place], [address], Progress Notes * Bridger CASTANEDA RDOB:[birth year] (59 yo M)Acc No.[id number]:07/28/2024 Progress Notes Patient:?Bridger CASTANEDA Provider:?Nicola Magana MD :1965???Age:58 Y???Sex:Male Beau e:07/28/2024 Address:[address] [place], [place] [id number] Subjective: * Chief Complaints: * ???1. Annual exam. * Medical History:? Objective: * Vitals:? Assessment: Plan: * Treatment: * Images: * The named appointment provid er may or may not be the originator of this progress note, and it is not deemed complete until electronically signed by the appointment provider. Sign off status: Pending * Provider:?Nicola Magana MD Date:?07/12 Generated for Usama kuhn/Jerrica/Abranitting on:?10/27/2024 10:24 AM EDT
--- NOTE | 2024-10-27 10:33 | AM.OFFWIN_ITS ---
Intake Vital Signs 10/27/24 10:53 Weight 223 lb BP 120/78 Blood Pressure Location Lt brachial Position Sitting Pulse 88 Pulse Source Pulse Oximeter Pulse Oximetry (%) 95 Oxygen Delivery Method Room Air Intake Visit Reasons: EP Fall on rt hand, swelling, painful, rt knee Patient Tobacco Use Status: Never used Tobacco Allergies No Known Allergies [No Known Allergies*] Allergy (Verified 10/27/24 10:54) Do you need a note to return to daycare/school/sports/work: No HPI HPI Comments History of Present Illness Details 59 y/o Male patient who presents to the walk in clinic with c/o right hand swelling after he fell yesterday evening. Pt reports that he was Laying down Logs when he tripped on one of the Logs landing on his Hand. He lives at a Intermediate. [facility] Medical History (Updated 10/27/24 @ 11:08 by Bella Gannon NP) Injury of right hand Prieto esophagus Anxiety Cognitive impairment, mild, so stated Hyperlipemia Hiatal hernia with GERD WPW (Mzwti-Zfwsgebmr-Hfdsd syndrome) Surgical History History of esophagogastroduodenoscopy (EGD) History of eyelid surgery History of bunionectomy History of tonsillectomy and adenoidectomy Family History (Updated 07/07/20 @ 10:15 by CHEYENNE Nichols) Father No problems noted. Mother No problems noted. Social History (Updated 07/08/20 @ 09:39 by CHEYENNE Nichols) Patient Tobacco Use Status: Never used Tobacco Review of Systems Const All systems reviewed & are unremarkable except as noted in HPI and below Physical Exam Vital Signs: Last Vital Signs Pulse 88 10/27/24 10:53 BP 120/78 10/27/24 10:53 Pulse Ox 95 10/27/24 10:53 Oxygen Delivery Method Room Air 10/27/24 10:53 Const General: no acute distress Nutritional Appearance: overweight Orientation/consciousness: patient oriented x3 Neuro General: patient oriented x3, gait normal and moves all extremities Extrem Other: Significant swelling right hand/wrist, with TTP. ROM fingers normal but with pain. Right upper extremity: Extremity exam: right hand Details: normal capillary refill, tenderness, normal ROM of fingers and swelling Left upper extremity: normal to inspection and full ROM Assessment & Plan Assessment & Plan (1) Injury of right hand: Code(s): S69.91XA - Unspecified injury of right wrist, hand and finger(s), initial encounter Qualifiers: Encounter type: initial encounter Qualified Code(s): S69.91XA - Unspecified injury of right wrist, hand and finger(s), initial encounter Plan: Ordered Xray Hand Wrapped Hand with Wrist Brace Ice/Hot Ibuprofen for pain relief. Orders: Orders XR hand RT min 3V Today S69.91XA - Unspecified injury of right wrist, hand and finger(s), initial encounter Medications: New ibuprofen 800 mg PO Q8H 30 tabs 0RF S69.91XA - Unspecified injury of right wrist, hand and finger(s), initial encounter Coding Level of Care Code Est Pt Level 4 (56229) Diagnoses Injury of right hand, initial encounter S69.91XA Encounter type: initial encounter Time Spent (min) 20
[2024-10-27 10:53] VITALS: BP 120/78; PULSE 88; O2SAT 95
== END 2024-10-27 12:17 | disposition home or self-care (01) ==
PROVIDERS: PCP Internal Medicine Medical Oncology; Visit Provider Nurse Practitioner Family
DX: S69.91XA Unspecified injury of right wrist, hand and finger(s), initial encounter (principal)

== ENCOUNTER 2024-10-27 09:59 | Outpatient (REF) | payer MEDICARE, MEDICAID, SELFPAY ==
--- NOTE | ~2024-10-27 | XR_ITS ---
EXAMINATION: XR HAND 3 OR MORE VIEWS RIGHT HISTORY: S69.91XA - Unspecified injury of right wrist, hand and finger(s), initial... COMPARISON: There are no prior studies available for comparison. FINDINGS: Three views of the right hand are submitted. Osseous mineralization is normal. There is no fracture or dislocation. There is mild narrowing of the 1st carpometacarpal joint. The soft tissues are unremarkable. XR/XR hand RT min 3V IMPRESSION: Mild narrowing of the 1st carpometacarpal joint. Otherwise unremarkable examination of the right hand. Electronically signed by: Nicola Marte MD 10/27/2024 11:30 AM EDT
== END 2024-10-27 10:00 | disposition home or self-care (01) ==
LOC: HO.HMGCX 09:59
PROVIDERS: PCP Internal Medicine Medical Oncology; Visit Provider Nurse Practitioner Family
DX: S69.91XA Unspecified injury of right wrist, hand and finger(s), initial encounter (principal)
CPT/HCPCS: 73130; 99212

== ENCOUNTER → 2024-10-27 11:14 | Outpatient (BNV) | payer MEDICARE, MEDICAID, SELFPAY | PROVIDERS: PCP Internal Medicine Medical Oncology; Visit Provider Radiology Diagnostic Radiology | DX: S69.91XA Unspecified injury of right wrist, hand and finger(s), initial encounter (principal) | CPT/HCPCS: 73130 ==

== ENCOUNTER 2024-10-30 13:46 | Outpatient (AMB) | payer MEDICARE, MEDICAID, SELFPAY ==
[2024-10-30 13:49] VITALS: BP 134/78; PULSE 112; O2SAT 98; BMI 33.8
--- NOTE | 2024-10-30 13:49 | MHC.OFFVIS ---
Vital Signs 10/30/24 13:49 Height 5 ft 8 in Weight 222 lb BMI 33.8 BP 134/78 Blood Pressure Location Lt brachial Position Sitting Pulse 112 H Pulse Source Pulse Oximeter Pulse Oximetry (%) 98 Oxygen Delivery Method Room Air Intake Visit Reasons: Shortness of breath Allergies No Known Allergies [No Known Allergies*] Allergy (Verified 10/27/24 10:54) HPI HPI Shortness of breath: Details: 59-year-old gentleman with underlying IgE deficiency referred for evaluation of possible sleep apnea symptoms. After the last office visit patient was started on CPAP for his underlying moderate obstructive sleep apnea and now reports improved symptom control, though some difficulties with compliance. He is also complain of a chronic nonproductive cough. [facility], [facility] Medical History (Updated 10/30/24 @ 15:51 by Angel Rogers MD) Injury of right hand Prieto esophagus Anxiety Cognitive impairment, mild, so stated Hyperlipemia Hiatal hernia with GERD WPW (Cslrf-Iftvjpqjc-Vzsfb syndrome) Surgical History History of esophagogastroduodenoscopy (EGD) History of eyelid surgery History of bunionectomy History of tonsillectomy and adenoidectomy Family History (Updated 07/07/20 @ 10:15 by CHEYENNE Nichols) Father No problems noted. Mother No problems noted. Social History (Updated 07/08/20 @ 09:39 by CHEYENNE Nichols) Patient Tobacco Use Status: Never used Tobacco Review of Systems Const Denies daytime sleepiness, Denies excessive sweating, Denies fatigue, Denies fever(s), Denies lethargy, Denies malaise, Denies night sweats, Denies snoring and Denies weight loss Eyes Denies blurry vision and Denies itchy eyes ENT Denies nasal congestion, Denies post nasal drip, Denies sinus pain, Denies sinus pressure and Denies other ( Thrush) Card Denies chest pain, Denies pedal edema, Denies dyspnea, Denies orthopnea and Denies paroxysmal nocturnal dyspnea Resp Reports cough, Denies hemoptysis, Denies excessive phlegm production, Denies dyspnea, Denies snoring and Denies wheezing GI Denies abdominal pain and Denies heartburn Musc Denies myalgias, Denies arthralgias and Denies joint swelling Skin/Breast Denies rash Neuro Denies memory loss and Denies seizure-like activity Psych Denies abnormal sleep pattern, Denies anxiety and Denies memory loss Endo Denies excessive sweating, Denies fatigue and Denies heat intolerance Agus/Lymph Denies easy bruising Aller/Immun Denies itchy eyes, Denies seasonal rhinorrhea and Denies wheezing Physical Exam Vital Signs: Last Vital Signs Pulse 112 H 10/30/24 13:49 BP 134/78 10/30/24 13:49 Pulse Ox 98 10/30/24 13:49 Oxygen Delivery Method Room Air 10/30/24 13:49 BMI result Body Mass Index 33.8 Const General: no acute distress and alert Nutritional Appearance: not obese Orientation/consciousness: Other orientation findings ( oriented) HEENT Head: Yes atraumatic Eyes General: appearance normal, both eyes and all related structures Sclerae: sclerae normal EOM: EOMs intact bilaterally Neck Neck: Yes supple Lymphatic: no lymphadenopathy noted Resp Effort & Inspection: normal respiratory effort and no use of accessory muscles Auscultation: clear to auscultation bilaterally Cardio Rate: regular rate Rhythm: regular rhythm Heart sounds: no gallops, no murmurs and no rubs Skin General skin exam: other ( warm) Extrem General: No clubbing, No cyanosis and No edema Assessment & Plan Assessment & Plan (1) WILMA (obstructive sleep apnea): Code(s): G47.33 - Obstructive sleep apnea (adult) (pediatric) Category: Medical Plan: Controlled on current CPAP therapy. Continue CPAP therapy. (2) Cough: Code(s): R05.9 - Cough, unspecified Category: Medical Plan: Will start on empiric Incruse. Medications: New umeclidinium 62.5 mcg/actuation (Incruse Ellipta) 1 inh inhalation DAILY 30 ea 6RF Coding Level of Care Code Est Pt Level 4 (19541) Diagnoses WILMA (obstructive sleep apnea) G47.33 Cough R05.9
--- OUTSIDE RECORDS SUMMARY | 2024-10-30 13:56 | XMS_ITS ---
Author Organization Nicola Magana III, MD Address [address] [place] [address] [place] [address] Care Team Providers Care Film Painter Name Role Phone Nicola Magana Primary Care [...] Provider Diagnosis Nicola Magana III, MD [address] [place] [address] [place] [phone] 07/08/2024 Nicola Magana Plan Of Treatment Medication Medication Name Sig Start Date Stop Date Notes Tylenol 325 MG 1 tablet as needed Orally every 4 hrs 07/08 Next Appt Details Provider Name:Nicola Magana, 02/20/2025 11:00:00 AM, [address] [place] [address] [place], [phone], Provider Name:Nicola Magana, 08/19/2025 11:00:00 AM, [address] [place] [address] [place], [phone], Progress Notes * Bridger CASTANEDA RDOB:[birth year] (58 yo M)Acc No.[id number]:07/08/2024 Patient:?Bridger CASTANEDA :1965???Age:58 Y???Sex:Male Address:[address] [place] [address], [place], [address] * Refills? Start Tylenol Tablet, 325 MG, Orally, 120, 1 tablet as needed, every 4 hrs, Refills=11 * true * Date:? Generated for Usama kuhn/Jerrica/Soniasmitting on:?10/30/2024 01:56 PM EDT
== END 2024-10-30 14:05 | disposition home or self-care (01) ==
LOC: HO.HPS 13:47
PROVIDERS: PCP Internal Medicine Medical Oncology; Visit Provider Internal Medicine Pulmonary Disease
DX: G47.33 Obstructive sleep apnea (adult) (pediatric) (principal); R05.9 Cough, unspecified
CPT/HCPCS: 99214

== ENCOUNTER → 2024-10-30 13:46 | Outpatient (BNVA) | payer MEDICARE, MEDICAID, SELFPAY | PROVIDERS: PCP Internal Medicine Medical Oncology; Visit Provider Internal Medicine Pulmonary Disease | DX: G47.33 Obstructive sleep apnea (adult) (pediatric) (principal); R05.3 Chronic cough; Z99.89 Dependence on other enabling machines and devices | CPT/HCPCS: 99212 ==

== ENCOUNTER 2024-12-11 10:02 | Outpatient (REF) | payer MEDICARE, MEDICAID, SELFPAY ==
--- OUTSIDE RECORDS SUMMARY | 2024-11-25 13:00 | XMS_ITS ---
Author Organization Nicola Magana III, MD Address [address] [place] [address] [place] [address] Care Team Providers Care It Desktop Support Specialist Name Role Phone Nicola Magana Primary Care Provider [phone] REASON FOR VISIT Concern Social History Sex Assigned At : Social History Observation Description Sex Assigned At Male Encounters Encounter Location Date Provider Diagnosis Nicola Magana III, MD [address] [place] [address] [place] [address] 11/25/2024 Nicola Magana Plan Of Treatment Next Appt Details Provider Name:Nicola Magana, 02/20/2025 11:00:00 AM, [address] [place] [address] [place], [phone], Provider Name:Nicola Magana, 08/19/2025 11:00:00 AM, [address] [place] [address] [place], [address], Progress Notes * Bridger CASTANEDA RDOB:[birth year] (59 yo M)Acc No.[id number]:11/25/2024 Progress Notes Patient: Marquez YBARRABridger NAIK Provider: Maddie Magana MD :1965 A ge:59 Y S ex:Male Date:11/25/2024 Address:[address] [place], [place] [id number] Subjective: * Chief Complaints: * 1 . [...] 0 11/25/2024 Generated for Usama kuhn/Jerrica/Harjit on: 0 12/11/2024 10:42 AM EDT
[2024-12-11 10:42] LABS: MANUAL DIFF FLAG NO
--- OUTSIDE RECORDS SUMMARY | 2024-12-11 10:43 | XMS_ITS | Patient Health Record ---
Author Organization [facility] Address [address] [place] [address] Care Team Providers Care Career Discovery Teacher Name Role Phone Nicola Magana MD Primary Care Provider Unavailab Nicola Munoz Unavailable [phone] Allergies No Known Allergies Reason For Referral [...] Problem Status W/U Status Risk Notes Problem 020340009 Encounter for screening for malignant neoplasm of colon (Z12.11) Active confirmed Problem 281882971 Prieto's esophagus without dysplasia (K22.70) Active confirmed Problem Diverticular disease of colon (665328927) Diverticulosis of large intestine without perforation or abscess without bleeding (K57.30) Active confirmed Problem 715567422 Gastroesophageal reflux disease without esophagitis (K21.9) Active confirmed Problem 791583267 Gastroesophageal reflux disease, esophagitis presence not specified (K21.9) Active confirmed Problem Gastroesophageal reflux disease (927055504) GERD (gastroesophageal reflux disease) (K21.9) Active confirmed Problem Prieto esophagus (834854682) Prieto esophagus (K22.70) Active confirmed Problem 85102232 Diarrhea, unspecified type (R19.7) Active confirmed Problem 56580699 Bowel habit changes (R19.4) Active confirmed Plan [...] OF [place] [address] [place] [address] [id number] CECY Zayas GARY Self - patient is the insured MEDICAID OF [facility] [address] [place] [address] [id number] GARY HAYS Self - patient is the insured Medical (General) History Medical History History ICD Code Denies AL,DM,CVA,Lung disease,renal dise ase GERD-upper endoscopy in December [...]
[2024-12-11 11:11] LABS: Hematocrit 45.1 % (42.0-52.0); Hemoglobin 15.3 g/dl (14.0-18.0); Imm Gran Abs Auto 0.03 X10*3/uL (0.00-0.03); Imm Gran Pct Auto 0.5 % (0.0-0.4); Lymphocytes Absolute Auto 1.6 X10*3/uL (1.2-4.9); Mean Corpuscular HGB Conc 33.9 g/dl (31.0-36.0); Mean Corpuscular Hemoglobin 29.9 pg (27.0-33.0); Mean Corpuscular Volume 88.3 fL (80.0-98.0); NRBC Abs Auto 0.000 X10*3/uL (0.0-0.012); NRBC Pct Auto 0.0 /100WBC (0.0-0.2); Platelet Count 154 X10*3/uL (160-400); Red Blood Count 5.11 X10*6/uL (4.60-5.80); White Blood Count 6.5 X10*3/uL (4.8-10.8)
[2024-12-11 11:38] LABS: Alanine Aminotransferase 23 U/L (0-40); Albumin Level 4.4 g/dL (3.5-5.0); Alkaline Phosphatase 91 U/L (39-117); Anion Gap 13 (12-20); Aspartate Amino Transferase 22 U/L (5-37); Blood Urea Nitrogen 16 mg/dL (9-16); Calcium 9.2 mg/dL (8.4-10.2); Carbon Dioxide 25 mmol/L (22-29); Chloride 108 mmol/L (96-108); Cholesterol 160 mg/dL (<200); Estimated Glomerular Filt Rate > 60; HDL Cholesterol 40 mg/dL (>40); Potassium 4.1 mmol/L (3.3-5.1); Sodium 142 mmol/L (135-145); Total Protein 6.2 g/dL (6.5-8.0); Triglycerides 120 mg/dL (<150)
[2024-12-11 11:48] LABS: Prostate Specific Antigen 0.44 ng/mL (<0.05-4.0)
== END 2024-12-11 10:03 | disposition home or self-care (01) ==
LOC: HO.LAB 10:02
PROVIDERS: PCP Internal Medicine Medical Oncology; Visit Provider Internal Medicine Medical Oncology
DX: N40.0 Benign prostatic hyperplasia without lower urinary tract symptoms (principal); E78.2 Mixed hyperlipidemia; E66.3 Overweight
CPT/HCPCS: 36415; 80053; 80061; 84153; 85025

== ENCOUNTER 2025-02-20 10:59 | Outpatient (REF) | payer MEDICARE, MEDICAID, SELFPAY ==
[2025-02-20 11:14] LABS: MANUAL DIFF FLAG NO
[2025-02-20 11:51] LABS: Hematocrit 47.5 % (42.0-52.0); Hemoglobin 16.0 g/dl (14.0-18.0); Imm Gran Abs Auto 0.07 X10*3/uL (0.00-0.03); Imm Gran Pct Auto 0.6 % (0.0-0.4); Lymphocytes Absolute Auto 2.0 X10*3/uL (1.2-4.9); Mean Corpuscular HGB Conc 33.7 g/dl (31.0-36.0); Mean Corpuscular Hemoglobin 29.9 pg (27.0-33.0); Mean Corpuscular Volume 88.8 fL (80.0-98.0); NRBC Abs Auto 0.000 X10*3/uL (0.0-0.012); NRBC Pct Auto 0.0 /100WBC (0.0-0.2); Platelet Count 208 X10*3/uL (160-400); Red Blood Count 5.35 X10*6/uL (4.60-5.80); White Blood Count 11.6 X10*3/uL (4.8-10.8)
[2025-02-20 12:42] LABS: Alanine Aminotransferase 21 U/L (0-40); Albumin Level 4.8 g/dL (3.5-5.0); Alkaline Phosphatase 93 U/L (39-117); Anion Gap 12 (12-20); Aspartate Amino Transferase 22 U/L (5-37); Blood Urea Nitrogen 26 mg/dL (9-16); Calcium 9.3 mg/dL (8.4-10.2); Carbon Dioxide 27 mmol/L (22-29); Chloride 109 mmol/L (96-108); Cholesterol 159 mg/dL (<200); Estimated Glomerular Filt Rate > 60; HDL Cholesterol 43 mg/dL (>40); Potassium 4.1 mmol/L (3.3-5.1); Sodium 144 mmol/L (135-145); Total Protein 6.7 g/dL (6.5-8.0); Triglycerides 101 mg/dL (<150)
[2025-02-20 12:45] LABS: Prostate Specific Antigen 0.48 ng/mL (<0.05-4.0)
== END 2025-02-20 11:00 | disposition home or self-care (01) ==
LOC: HO.LAB 10:59
PROVIDERS: PCP Internal Medicine Medical Oncology; Visit Provider Internal Medicine Medical Oncology
DX: N40.0 Benign prostatic hyperplasia without lower urinary tract symptoms (principal); F81.9 Developmental disorder of scholastic skills, unspecified; E78.2 Mixed hyperlipidemia; E66.9 Obesity, unspecified; Z12.5 Encounter for screening for malignant neoplasm of prostate
CPT/HCPCS: 36415; 80053; 80061; 84153; 85025

== ENCOUNTER 2025-05-01 10:18 | Outpatient (AMB) | payer MEDICARE, MEDICAID, SELFPAY ==
--- OUTSIDE RECORDS SUMMARY | 2024-05-20 10:30 | XMS_ITS ---
Author Organization Nicola Magana III, MD Address [address] [place] [address] [place] [address] Care Team Providers Care Home Health Physical Therapist Name Role Phone Dr. Nicola Magana III Primary Care Provider [phone] Allergies Allergen (clinical drug ingredient) Drug/Non Drug Allergy documented on EMR Reaction Allergy Type Onset Date Status No Known Drug Allergy Unknown Drug Allergy Active REASON FOR VISIT Follow up Medications Medication SIG (Take, Route, Frequency, Duration) Notes Start Date End Date Status QUEtiapine Fumarate 100 MG as directed O rally one three times a day 01/11/2023 Active ARIPiprazole 15 MG Oral A ctive traZODone HCl 50 MG TAKE 1 TABLET BY [facility] EVERY NIGHT AT BEDTIME NEEDED Oral Active Simvastatin 10 MG TAKE 1 TABLET BY [facility] EVERY DAY IN THE EVENING Orally Once a day Active Omeprazole 20 MG TAKE 1 CAPSULE BY MO [facility] EVERY DAY Orally Once a day Active Social History Tobacco Use: Social History Observation Description Date Details (start date - stop date) Never Smoker NA - NA Sex Assigned At : Social History Observation Description Sex Assigned At Male Tobacco Use/Smoking Question Answer Notes Patient is a nonsmoker Additional Findings: Tobacco Non-User Aggressive non-smoker Encounters Encounter Location Date Provider Diagnosis Nicola Magana III, MD [address] [place] [address] [place] [address] 05/20/2024 Nicola Magana Learning disability F81.9 Assessments Encounter Date Diagnosis (ICD Code) Assessment Notes Treatment Notes Treatment Clinical Notes 05/20/2024 Learning disability (ICD-10 - F81.9) His cognitive functions and bodily habitus, have remained stable. [facility] His mother is less anxious. Plan Of Treatment Medication Medication Name Sig Start Date Stop Date Notes QUEtiapine Fumarate 100 MG as directed O rally one three times a day 01/11/2023 ARIPiprazole 15 MG Oral traZODone HCl 50 MG TAKE 1 TABLET BY [facility] EVERY NIGHT AT BEDTIME NEEDED Oral Simvastatin 10 MG TAKE 1 TABLET BY [facility] TH EVERY DAY IN THE EVENING Orally Once a day Omeprazole 20 MG TAKE 1 CAPSULE BY [facility] EVERY DAY Orally Once a day Next Appt Details Provider Name:Nicola Magana , 08/19/2025 11:00:00 AM, [address] [place] [address], [place] [address], [place], [address], Progress Notes * Bridger CASTANEDA RDOB:[birth year] (59 yo M)Acc No.[id number]:05/20/2024 Progress Notes Patient: Bridger MARY Provider: Maddie Magana MD :1965 A ge:58 Y S ex:Male Date:05/20/2024 Address:[address] [place] [address] Subjective: * Chief Complaints: * 1 . Follow up. * HPI: C OVID-19 Screening: Questions H ave you had any new onset fever, chills, cough, congestion, sore throat, shortness of breath, muscle aches? N o H ave you been exposed to the virus within the last 10 days? N o H ave you travelled internationally in the last 10 days? N o H ave you been exposed to COVID-19 in the past? N o * ROS: G eneral/Constitutional: pain o nly normal aches and pains. C hills d enies.?Fatigue a dmits. F ever d enies. E NT: Decreased hearing d enies. R espiratory: Cough d enies. C ardiovascular: Chest pain with exertion d enies. D yspnea on exertion?denies. S hortness of breath d enies. G astrointestinal: Constipation d enies. D ecreased appetite d enies.?Diarrhea d enies. H eartburn d enies. N ausea d enies. R ectal bleeding?denies. V omiting d enies. H ematology: bruising d enies. p etechiae d enies. S wollen glands n one have been noted. G enitourinary: Frequent urination d enies. M usculoskeletal: Muscle aches d enies. P ainful joints d enies. S ciatica d enies. W eakness d enies. S kin: Itching d enies. R aime d enies. S kin lesion(s)?denies. N eurologic: Difficulty speaking d enies. D izziness d enies.?Headache d enies. L ow back pain d enies. P sychiatric: Depressed mood d enies. * Medical History: M ild mental retardation, Osteoarthritis of cervical spine, unspecified spinal osteoarthritis complication status, Hyperlipidemia, unspecified hyperlipidemia type, Gastro-esophageal reflux disease without esophagitis, Small hiatal hernia, Prieto's esophagus, history of depression treated with Prozac, history of Parkinson White syndrome, History of low back pain, Calluses on feet, Ceruminosis, Overweight, History of atypical chest pain with negative cardiac workup, Suicidal ideations. * Surgical History: t onsillectomy and adenoidectomy 1975, bunionectomy/bilateral, [facility], Dr. Pulido 2003, esophagogastric duodenoscopy, [facility], Dr. Nicola Mandujano, positive for Prieto's epithelium 12/2016. * Hospitalization/Major Diagno stic Procedure: D enies Past Hospitalization. * Family History: F ather: alive 71 yrs. M other: alive 60 yrs. 2 brother(s) , 2 sister(s) - healthy. .? A paternal uncle had a myocardial infarction at the age of 40. He has 4 brothers and 2 sisters whom he says are healthy and well. * Social History: T obacco Use: T obacco Use/Smoking P atient is a n onsmoker A dditional Findings: Tobacco Non-User A ggressive non-smoker Karine campbell was born at [place], [place]. He is single and has no children. He is disabled and not working. * Medications: T eric QUEtiapine Fumarate 100 MG Tablet as directed Orally one three times a day , Taking traZODone HCl 50 MG Tablet TAKE 1 TABLET BY MOUTH EVERY NIGHT AT BEDTIME NEEDED Oral , Taking ARIPiprazole 15 MG Tablet Oral , Taking Omeprazole 20 MG Capsule Delayed Release TAKE 1 CAPSULE BY MOUTH EVERY DAY Orally Once a day , Taking Simvastatin 10 MG Tablet TAKE 1 TABLET BY MOUTH EVERY DAY IN THE EVENING Orally Once a day , Medication List reviewed and reconciled with the patient * Allergies: N o Known Drug Allergy. Objective: * Vitals: * Examination: G eneral Examination: GENERAL APPEARANCE: p leasant, well nourished, well developed, in no acute distress, calm and relaxed. HEAD: a traumatic, normocephalic. EYES: e pete, perrla, anicteric, conjugate. EARS: n ormal. NOSE: s eptum intact. ORAL CAVITY: n ormal, unremarkable. NECK/THYROID: n o jugular venous distention, no carotid bruit, thyroid normal. LYMPH NODES: n o enlarged lymph nodes,spleen normal. SKIN: n o suspicious lesions, anicteric. HEART: n o clicks, gallops, murmurs, or rubs, regular rhythm, S1, S2 normal, no s3, or vascular bruits. LUNGS: c lear to auscultation . BREASTS: no masses palpable bilaterally. ABDOMEN: b owel sounds normal, no ascites, no organomegaly, no mass. RECTAL EXAM: n ot examined. MUSCULOSKELETAL: e xtremities unremarkable, no clubbing, cyanosis or edema. PERIPHERAL PULSES: n ormal. NEUROLOGIC: a lert and oriented, cranial nerves 2-12 grossly intact, deep tendon reflexes 2+ symmetrical, motor strength normal upper and lower extremities, sensory exam intact. PSYCH: a lert, oriented. Assessment: * Assessment: 1. L earning disability - F81.9 N otes :His cognitive functions and bodily habitus, have remained stable. [facility]. His mother is less anxious. Plan: * Treatment: 2. O thers Continue Omeprazole Capsule Delayed Release, 20 MG, TAKE 1 CAPSULE BY MOUTH EVERY DAY, Orally, Once a day. * Images: * The named appointment provid er may or may not be the originator of this progress note, and it is not deemed complete until electronically signed by the appointment provider. Sign off status: Pending * Provider: Maddie Magana MD Date: 07/21/2023 Generated for Usama kuhn/Jerrica/Abranitting on: 07/01/2024 10:54 AM EST History and Physical Notes * HPI (History of Present Illness) Category Sub-Category Detail Notes COVID-19 Screening Questions Have you had any new onset fever, chills, cough, congestion, sore throat, shortness of breath, muscle aches?: No Have you been exposed to the virus withi n the last 10 days?: No Have you travelled internationally in [facility] last 10 days?: No Have you been exposed to COVID-19 in the past?: No Examination Category Sub-Category Detail Notes General Examination GENERAL APPEARANCE: pleasant , well nourished, well developed, in no acute distress, calm and relaxed HEAD: atraumatic, normocep halic EYES: eomi, perrla, anicte jeffrey, conjugate EARS: normal NOSE: septum intact NECK/THYROID: no jugular venous di stention, no carotid bruit, thyroid normal HEART: no clicks, gallops, murmurs, or rubs, regular rhythm, S1, S2 normal, no s3, or vascular bruits LUNGS: clear to auscultatio n ABDOMEN: bowel sounds normal, no ascites, no organomegaly, no mass NEUROLOGIC: alert and oriented, cranial nerves 2-12 grossly intact, deep tendon reflexes 2+ symmetrical, motor strength normal upper and lower extremities, sensory exam intact SKIN: no suspicious lesion s, anicteric PERIPHERAL PULSES: normal BREASTS: no masses palpable b ilaterally MUSCULOSKELETAL: extremities unremark able, no clubbing, cyanosis or edema LYMPH NODES: no enlarged lymph no roberto,spleen normal RECTAL EXAM: not examined PSYCH: alert, oriented ORAL CAVITY: normal, unremarkable
--- OUTSIDE RECORDS SUMMARY | 2024-06-23 08:43 | XMS_ITS ---
Author Organization Nicola Magana III, MD Address [address] [place] [address] [place] [address] Care Team Providers Care Clock Repairer Name Role Phone Dr. Nicola Magana III Primary Care Provider [phone] REASON FOR VISIT Rx Request Social History Sex Assigned At : Social History Observation Description Sex Assigned At Male Encounters Encounter Location Date Provider Diagnosis Nicola Magana III, MD [address] [place] [address] [address] [facility] [place] [address] 06/23/2024 Nicola Magana Plan Of Treatment Next Appt Details Provider Name:Nicola Magana , 08/19/2025 11:00:00 AM, [address] [place] [address] [place], [address], Progress Notes * Bridger CASTANEDA RDOB:[birth year] (58 yo M)Acc No.[id number]:06/23/2024 Patient: Marquez LUNABridger DE LA TORRE :1965 A ge:58 Y S ex:Male Address:[address] [place] [address], [address] * true * Date: Generated for Brandyi bam/Famoralesg/eTransmitting on: 07/01/2024 10:54 AM EST
--- OUTSIDE RECORDS SUMMARY | 2024-06-23 12:02 | XMS_ITS ---
Author Organization Nicola Magana III, MD Address [address] [place] [address] [place] [address] Care Team Providers Care Spike Driver Name Role Phone Dr. Nicola Magana III Primary Care Provider Medications Medication SIG (Take, Route, Frequency, Duration) Notes Start Date End Date Status Dextromethorphan-guaiFENe sin 5-100 MG/5ML 5 milliliters Orally every 4 hours for 7 days 06/23/2024 08/04/2024 Active Social History Sex Assigned At : Social History Observation Description Sex Assigned At Male Encounters Encounter Location Date Provider Diagnosis Nicola Magana III, MD [address] [place] [address] [place] [address] 06/23/2024 Nicola Magana Plan Of Treatment Medication Medication Name Sig Start Date Stop Date Notes Dextromethorphan-guaiFENesin 5-100 MG/5ML 5 milliliters Orally every 4 hours for 7 days 06/23/2024 08/04/2024 Next Appt Details Provider Name:Nicola Magana , 08/19/2025 11:00:00 AM, [address] [place] [address] [place], [address], Progress Notes * Bridger CASTANEDA RDOB:[birth year] (58 yo M)Acc No.[id number]:06/23/2024 Patient: Marquez Bridger MARTINEZ :1965 A ge:58 Y S ex:Male Address:[address] [place] [address], [place], [address] * Refills Start Dextromethorphan-guaiFENesin Liquid, 5-100 MG/5ML, Orally, 210 Milliliter, 5 milliliters, every 4 hours, 7 days, Refills=5 * true * Date: Generated for Usama kuhn/Jerrica/Abranitting on: 07/01/2024 10:55 AM EST
--- OUTSIDE RECORDS SUMMARY | 2024-06-24 05:42 | XMS_ITS ---
Author Organization Nicola Magana III, MD Address [address] [place] [address] [place] [address] Care Team Providers Care Professional Employer Consultant Name Role Phone Dr. Nicola Magana III Primary Care Provider [phone] REASON FOR VISIT Change Needed for Rx Social History Sex Assigned At : Social History Observation Description Sex Assigned At Male Encounters Encounter Location Date Provider Diagnosis Nicola Magana III, MD [address] [place] [address] [place] [address] 06/24/2024 Nicola Magana Plan Of Treatment Next Appt Details Provider Name:Nicola Magana , 08/19/2025 11:00:00 AM, [address] [place] [address] [place], [address], Progress Notes * Bridger CASTANEDA RDOB:[birth year] (58 yo M)Acc No.[id number]:06/24/2024 Patient: Marquez LUNABridger DE LA TORRE :1965 A ge:58 Y S ex:Male Address:[address] [place] [address], [address] * true * Date: Generated for Brandyi ng/Famoralesg/eTransmitting on: 07/01/2024 10:54 AM EST
--- OUTSIDE RECORDS SUMMARY | 2024-07-08 05:09 | XMS_ITS ---
Author Organization Nicola Magana III, MD Address [address] [place] [address] [place] [address] Care Team Providers Care Toby Maker Name Role Phone Dr. Nicola Magana III Primary Care Provider [phone] REASON FOR VISIT Rx Request Medications Medication SIG (Take, Route, Fr equency, Duration) Notes Start Date End Date Status Tylenol 325 MG 1 tablet as needed Orally every 4 hrs As needed for pain or fever 07/08/2024 Acti ve Social History Sex Assigned At : Social History Observation Description Sex Assigned At Male Encounters Encounter Location Date Provider Diagnosis Nicola Magana III, MD [address] [place] [address] [place] [address] 07/08/2024 Nicola Magana Plan Of Treatment Medication Medication Name Sig Start Date Stop Date Notes Tylenol 325 MG 1 tablet as needed Orally every 4 hrs 07/08 Next Appt Details Provider Name:Nicola Magana , 08/19/2025 11:00:00 AM, [address] [place] [address] [place], [address], Progress Notes * Bridger CASTANEDA RDOB:[birth year] (58 yo M)Acc No.[id number]:07/08/2024 Patient: Marquez LUNABridger DE LA TORRE :1965 A ge:58 Y S ex:Male Address:[address] [place] [address], [address] * Refills Start Tylenol Tablet, 325 MG, Orally, 120, 1 tablet as needed, every 4 hrs, Refills=11 * true * Date: Generated for Usama kuhn/Jerrica/Harjit on: 07/01/2024 10:54 AM EST
--- OUTSIDE RECORDS SUMMARY | 2024-07-28 12:15 | XMS_ITS ---
Author Organization Nicola Magana III, MD Address [address] [place] [address] [place] [address] Care Team Providers Care Pier Hand Helper Name Role Phone Dr. Nicola Magana III Primary Care Provider [phone] REASON FOR VISIT annual exam Social History Sex Assigned At : Social History Observation Description Sex Assigned At Male Encounters Encounter Location Date Provider Diagnosis Nicola Magana III, MD [address] [place] [address] [address] [place] [place] [address] 07/28/2024 Nicola Magana Plan Of Treatment Next Appt Details Provider Name:Nicola Magana , 08/19/2025 11:00:00 AM, [address] [place] [address] [place], [address], Progress Notes * Bridger CASTANEDA RDOB:[birth year] (59 yo M)Acc No.[id number]:07/28/2024 Progress Notes Patient: Bridger MARY Provider: Maddie Magana MD :1965 A ge:58 Y S ex:Male Date:07/28/2024 Address:[address] [place], [place] [id number] Subjective: * Chief Complaints: * 1 . Annual exam. * Medical History: Objective: * Vitals: Assessment: Plan: * Treatment: * Images: * The named appointment provid er may or may not be the originator of this progress note, and it is not deemed complete until electronically signed by the appointment provider. Sign off status: Pending * Provider: Maddie Magana MD Date: 0 07/28/2024 Generated for Usama kuhn/Jerrica/Harjit on: 1 07/01/2024 10:55 AM EST
--- OUTSIDE RECORDS SUMMARY | 2024-08-13 06:00 | XMS_ITS ---
Author Organization Nicola Magana III, MD Address [address] [place] [address] [place] [address] Care Team Providers Care Tentmaker Name Role Phone Dr. Nicola Magana III Primary Care Provider [phone] Allergies Allergen (clinical drug ingredient) Drug/Non Drug Allergy documented on EMR Reaction Allergy Type Onset Date Status No Known Drug Allergy Unknown Drug Allergy Active REASON FOR VISIT annual exam Medications Medication SIG (Take, Route, Frequency, Duration) Notes Start Date End Date Status QUEtiapine Fumarate 100 MG as directed O rally one three times a day 01/11/2023 Active Tylenol 325 MG 1 tablet as needed Orally every 4 hrs As needed for pain or fever 07/08/2024 Active ARIPiprazole 15 MG Oral A ctive traZODone HCl 50 MG TAKE 1 TABLET BY [facility] EVERY NIGHT AT BEDTIME NEEDED Oral Active Omeprazole 20 MG TAKE 1 CAPSULE BY [facility] EVERY DAY Orally Once a day Active Simvastatin 10 MG TAKE 1 TABLET BY [facility] EVERY DAY IN THE EVENING Orally Once a day Active Social History Tobacco Use: Social History Observation Description Date Details (start date - stop date) Never Smoker NA - NA Sex Assigned At : Social History Observation Description Sex Assigned At Male Tobacco Use/Smoking Question Answer Notes Patient is a nonsmoker Additional Findings: Tobacco Non-User Aggressive non-smoker Tobacco Control (Standard) Question Answer Notes Tobacco use: Nonsmoker Additional Findings: Tobacco non-user Aggressive nonsmoker AUDIT-C (Standard) Question Answer Notes Did you have a drink containing alcohol in the p ast year? No Points 0 Interpretation Negative Problems Problem Type SNOMED Code ICD Code Onset Dates Problem Status W/U Status Risk Notes Problem [id number] Overweight (E66.3) Active confirmed He has lost 10pounds. His body mass index is now 29. We have discussed a weight reduction strategy. We made plans to lose weight at a rate of one half of a pound per week. Vital Signs Temperature 98.1 degrees Fahrenheit 08/14/19 25 Blood pressure systolic 135 mm Hg 08/14/19 25 Blood pressure diastolic 80 mm Hg 025 Heart Rate 84 /min 08/13/2024 Respiratory Rate 16 /min 08/13/2024 Height 70 in 08/13/2024 Weight 217 lbs 08/13/2024 BMI 31.13 kg/m2 08/13/2024 Encounters Encounter Location Date Provider Diagnosis Nicola Magana III, MD [address] [place] [address] [place] [address] 08/13/2024 Nicola Magana Learning disability F81.9 ; Mixed hyperlipidemia E78.2 ; BPH (benign prostatic hyperplasia) N40.0 ; Overweight E66.3 ; GERD without esophagitis K21.9 ; Barretts esophagus without dysplasia K22.70 and Spondylosis of cervical region without myelopathy or radiculopathy M47.812 Assessments Encounter Date Diagnosis (ICD Code) Assessment Notes Treat ment Notes Treatment Clinical Notes 08/13/2024 Learning disability (ICD-10 - F81.9) His cognitive functions and bodily habitus, have remained stable. [facility] [employer] [facility] has placed him in a care home house. He lives with his mother. He says he is very happy there. 08/13/2024 Mixed hyperlipidemia (ICD-10 - E78.2) He has gained weight. No current fasting lipids are available. I have ordered a profile to be done prior to next visit. No change in his regimen was necessary. 08/13/2024 BPH (benign prostati c hyperplasia) (ICD-10 - N40.0) He rises from sleep once a night. We have discussed lifestyle modifications he could make to reduce nocturia. 08/13/2024 Overweight (ICD-10 - E66.3) He has gained 8 pounds. His body mass index is now 31.18. We have discussed a weight reduction strategy. We made plans to lose weight at a rate of one half of a pound per week. 08/13/2024 GERD without esophagitis (ICD-10 - K21.9) His reflux symptoms are well-controlled with medication and no change in his regimen was necessary today. He is sleeping well. 08/13/2024 Barretts esophagus without dysplasia (ICD-10 - K22.70) He has no symptoms of dysphagia reflux today. His surveillance with upper endoscopy will continue with the appropriate intervals.. 08/13/2024 Spondylosis of cervical region without myelopathy or radiculopathy (ICD-10 - M47.812) The pain in his arms does not appear to radiate from the neck. Range of motion was intact in free of pain. Plan Of Treatment Medication Medication Name Sig Start Date Stop Date Notes QUEtiapine Fumarate 100 MG as directed O rally one three times a day 01/11/2023 Tylenol 325 MG 1 tablet as needed O rally every 4 hrs 07/08/2024 ARIPiprazole 15 MG Oral traZODone HCl 50 MG TAKE 1 TABLET BY [facility] EVERY NIGHT AT BEDTIME NEEDED Oral Omeprazole 20 MG TAKE 1 CAPSULE BY [facility] EVERY DAY Orally Once a day Simvastatin 10 MG TAKE 1 TABLET BY [facility] EVERY DAY IN THE EVENING Orally Once a day Pending Test Test Name Order Date PROFILE, FASTING (COMPREHENSIVE METABOLI C) 08/13/2024 LIPID PANEL 08/13/2024 PSA, TOTAL 08/13/2024 CBC w DIFF 08/13/2024 Next Appt Details Follow Up: 6 Months, 11:00 o n a future date, Reason: OV, Routine check-up Provider Name:Nicola Magana , 08/19/2025 11:00:00 AM, [address] [place] [address] , [facility] [address], [place], [address], Progress Notes * Bridger CASTANEDA RDOB:[birth year] (58 yo M)Acc No.[id number]:08/13/2024 Progress Notes Patient: Marquez LUNAWIL Bridger Maddie Provider: Maddie Magana MD :1965 A ge:58 Y S ex:Male Date:08/13/2024 Address:[address] [place] [address], [id number] Subjective: * Chief Complaints: * A nnual exam * HPI: D epression Screening: PHQ-9 L ittle interest or pleasure in doing things?Not at all F eeling down, depressed, or hopeless N ot at all T rouble falling or staying asleep, or sleeping too much N ot at all F eeling tired or having little energy N ot at all P oor appetite or overeating N ot at all F eeling bad about yourself or that you are a failure, or have let yourself or your family down N ot at all T rouble concentrating on things, such as reading the newspaper or watching television N ot at all M oving or speaking so slowly that other people could have noticed; or the opposite, being so fidgety or restless that you have been moving around a lot more than usual N ot at all T houghts that you would be better off or of hurting yourself in some way N ot at all T otal Score 0 C OVID-19 Screening: Questions H ave you had any new onset fever, chills, cough, congestion, sore throat, shortness of breath, muscle aches? N o S ESEQUIEL Questions: SDOH Questions I n the past year have you been worried about losing your housing? N o I n the past year have you or any family members you live with been unable to get any of the following when it was really needed? Check all that apply: N one * : The patient, a 58-year-old male, presented for his annual examination. He reported that his neck, which had previously been a problem, was feeling much better. However, he still experiences heartburn, despite taking medication. The patient also mentioned that he wakes up at night to urinate. He reported feeling less depressed and adjusting well. He has inflammation in his esophagus, known as Barito esophagus, which requires an endoscopy every couple of years. The patient also mentioned having some trouble exercising due to a knee issue. He denied any trouble with breathing, dizziness, double vision, or issues with urine or bowel movements. The patient's heart rate was regular and slow, and no murmurs were detected. His gall bladder was not painful. * ROS: G eneral/Constitutional: pain o nly normal aches and pains. C hills d enies.?Fatigue a dmits. F ever d enies. E NT: Decreased hearing d enies. R espiratory: Cough d enies. C ardiovascular: Chest pain with exertion d enies. D yspnea on exertion?denies. S hortness of breath d enies. G astrointestinal: Constipation o ccasional. D ecreased appetite d enies. D iarrhea d enies. H eartburn d enies. N ausea d enies. R ectal bleeding d enies. V omiting d enies. H ematology: bruising d enies. p etechiae d enies. S wollen glands n one have been noted. G enitourinary: Frequent urination o nce a night. M usculoskeletal: Muscle aches d enies. P ainful joints d enies. S ciatica d enies. W eakness d enies. S kin: Itching d enies. R aime d enies. S kin lesion(s)?denies. N eurologic: Difficulty speaking d enies. D izziness d enies.?Headache d enies. L ow back pain d enies. P sychiatric: Depressed mood d enies. * Medical History: * Surgical History: t onsillectomy and adenoidectomy 1975bunionectomy/bilateral, [facility], Dr. Pulido 2003esophagogastric duodenoscopy, [facility], Dr. Nicola Mandujano, positive for Prieto's epithelium 12/2016No history * Hospitalization/Major Diagno stic Procedure: N o history * Family History: F ather: alive 71 [...] dditional Findings: Tobacco Non-User A ggressive non-smoker Tobacco Control (Standard) T obacco use: N onsmoker A dditional Findings: Tobacco non-user A ggressive nonsmoker D rugs/Alcohol: D rugs H ave you used drugs other than those for medical reasons in the past 12 months? N o D rug/Alcohol: A MARVIN-C (Standard) D id you have a drink containing alcohol in the past year? N o P oints 0 I nterpretation N egative H adrian was born at [place], [place]. He is single and has no children. He is disabled and not working. The patient reported feeling less depressed and adjusting well. He also mentioned having some trouble exercising due to a knee issue. He was happy with his living situation and was planning to start working on reading and writing. * Medications: T akingQUEtiapine Fumarate 100 MG Tablet as directed Orally one three times a day traZODone HCl 50 MG Tablet TAKE 1 TABLET BY MOUTH EVERY NIGHT AT BEDTIME NEEDED Oral ARIPiprazole 15 MG Tablet Oral Omeprazole 20 MG Capsule Delayed Release TAKE 1 CAPSULE BY MOUTH EVERY DAY Orally Once a day Simvastatin 10 MG Tablet TAKE 1 TABLET BY MOUTH EVERY DAY IN THE EVENING Orally Once a day Tylenol 325 MG Tablet 1 tablet as needed Orally every 4 hrs As needed for pain or feverMedication List reviewed and reconciled with the patientTaking QUEtiapine Fumarate 100 MG Tablet as directed Orally one three times a day Taking traZODone HCl 50 MG Tablet TAKE 1 TABLET BY MOUTH EVERY NIGHT AT BEDTIME NEEDED Oral Taking ARIPiprazole 15 MG Tablet Oral Taking Omeprazole 20 MG Capsule Delayed Release TAKE 1 CAPSULE BY MOUTH EVERY DAY Orally Once a day Taking Simvastatin 10 MG Tablet TAKE 1 TABLET BY MOUTH EVERY DAY IN THE EVENING Orally Once a day Taking Tylenol 325 MG Tablet 1 tablet as needed Orally every 4 hrs As needed for pain or feverMedication List reviewed and reconciled with the patient * Allergies: N o Known Drug Allergyno[Allergies Verified] Objective: * Vitals: H t: 70, Wt: 217, BMI:31.13, BP: 135/80, HR: 84, RR: 16, Temp: 98.1, Wt-k.43. * Examination: G eneral Examination: GENERAL APPEARANCE: p leasant, well nourished, well developed, in no acute distress, calm and relaxed, obese, man. HEAD: a traumatic, normocephalic. EYES: e pete, [...] sounds normal, no ascites, no organomegaly, no mass, centripital obesity. RECTAL EXAM: n ot examined. MUSCULOSKELETAL: e xtremities unremarkable, no clubbing, cyanosis or edema. PERIPHERAL PULSES: n ormal. NEUROLOGIC: a lert and oriented, cranial nerves 2-12 grossly intact, deep tendon reflexes 2+ symmetrical, motor strength normal upper and lower extremities, sensory exam intact. PSYCH: a lert, oriented, Moderate cognitive impairment.? - : N seth:Improved, no pain; Heart: Regular and slow rate, no murmurs; Gall bladder: Not painful; Skin: Healthy; Hearing: Good; Eyesight: Good; Esophagus: Inflammation present; Knee: Issue causing trouble with exercise. Assessment: * Assessment: 1. L earning disability - F81.9 (Primary) N otes :His cognitive functions and bodily habitus, have remained stable. [facility] [employer] has placed him in a care home house. He lives with his mother. He says he is very happy there. 2 . M ixed hyperlipidemia - E78.2 N otes :He has gained weight. No current fasting lipids are available. I have ordered a profile to be done prior to next visit. No change in his regimen was necessary. 3 . B PH (benign prostatic hyperplasia) - N40.0 N otes :He rises from sleep once a night. We have discussed lifestyle modifications he could make to reduce nocturia. 4 . O verweight - E66.3 N otes :He has gained 8 pounds. His body mass index is now 31.18. We have discussed a weight reduction strategy. We made plans to lose weight at a rate of one half of a pound per week. 5 . G ERD without esophagitis - K21.9 N otes :His reflux symptoms are well-controlled with medication and no change in his regimen was necessary today. He is sleeping well. 6 . B arretts esophagus without dysplasia - K22.70 N otes :He has no symptoms of dysphagia reflux today. His surveillance with upper endoscopy will continue with the appropriate intervals.. 7 . S pondylosis of cervical region without myelopathy or radiculopathy - M47.812 N otes :The pain in his arms does not appear to radiate from the neck. Range of motion was intact in free of pain. Plan: * Treatment: 2. M ixed hyperlipidemia L AB: PROFILE, FASTING (COMPREHENSIVE METABOLIC) L AB: LIPID PANEL L AB: PSA, TOTAL L AB: CBC w DIFF 3. B PH (benign prostatic hyperplasia) L AB: PROFILE, FASTING (COMPREHENSIVE METABOLIC) L AB: LIPID PANEL L AB: PSA, TOTAL L AB: CBC w DIFF 4. O verweight L AB: PROFILE, FASTING (COMPREHENSIVE METABOLIC) L AB: LIPID PANEL L AB: PSA, TOTAL L AB: CBC w DIFF 5. O thers Continue Tylenol Tablet, 325 MG, 1 tablet as needed, Orally, every 4 hrs As needed for pain or fever; C ontinue Omeprazole Capsule Delayed Release, 20 MG, TAKE 1 CAPSULE BY MOUTH EVERY DAY, Orally, Once a day. * Procedure Codes: * Preventive Medicine: Counseling: C are goal follow-up plan: Counseling for abnormal BMI given Y es Above Normal BMI Follow-up D ietary management education, guidance, and counseling, Dietary needs education, Exercise promotion: strength training, Exercise promotion: stretching, Feeding regime, Giving encouragement to exercise, Lifestyle education regarding diet, Nutrition / feeding management, Nutrition therapy, Prescribed activity/exercise education, Prescribed diet education, Prescribed dietary intake, Special diet education, Weight monitoring , Intervention, Order not done: Medical or Other reason not done * Follow Up: 6 Months, 11:00 on a future date (Reason: OV, Routine check-up) * Images: * Sign off status: Completed true * Provider: Maddie Magana MD Date: 0 08/13/2024 Generated for Usama kuhn/[place]/eTransmitting on: 1 07/01/2024 10:55 AM EST History and Physical Notes * HPI (History of Present Illness) Category Sub-Category Detail Notes Depression Screening PHQ-9 Little inte rest or pleasure in doing things: Not at all Feeling down, depressed, or hopeless: No t at all Trouble falling or staying asleep, or sl eeping too much: Not at all Feeling tired or having little energy: N ot at all Poor appetite or overeating: Not at all Feeling bad about yourself o r that you are a failure, or have let yourself or your family down: Not at all Trouble concentrating on thi ngs, such as reading the newspaper or watching television: Not at all Moving or speaking so slowly that other people could have noticed; or the opposite, being so fidgety or restless that you have been moving around a lot more than usual: Not at all Thoughts that you would be b mahesh off or of hurting yourself in some way: Not at all Total Score: 0 COVID-19 Screening Questions Have you had any new onset fever, chills, cough, congestion, sore throat, shortness of breath, muscle aches?: No SDOH Questions SDOH Questions In the past year have you been worried about losing your housing?: No In the past year have you or any family members you live with been unable to get any of the following when it was really needed? Check all that apply:: None Examination Category Sub-Category Detail Notes General Examination GENERAL APPEARANCE: pleasant , well nourished, well developed, in no acute distress, calm and relaxed, obese, man HEAD: atraumatic, normocep halic EYES: eomi, perrla, anicte jeffrey, conjugate EARS: normal NOSE: septum intact NECK/THYROID: no jugular venous di stention, no carotid bruit, thyroid normal HEART: no clicks, gallops, murmurs, or rubs, regular rhythm, S1, S2 normal, no s3, or vascular bruits LUNGS: clear to auscultatio n ABDOMEN: bowel sounds normal, no ascites, no organomegaly, no mass, centripital obesity NEUROLOGIC: alert and oriented, cranial nerves 2-12 grossly intact, deep tendon reflexes 2+ symmetrical, motor strength normal upper and lower extremities, sensory exam intact SKIN: no suspicious lesion s, anicteric PERIPHERAL PULSES: normal BREASTS: no masses palpable b ilaterally MUSCULOSKELETAL: extremities unremark able, no clubbing, cyanosis or edema LYMPH NODES: no enlarged lymph no roberto,spleen normal RECTAL EXAM: not examined PSYCH: alert, oriented, Mod erate cognitive impairment ORAL CAVITY: normal, unremarkable
--- OUTSIDE RECORDS SUMMARY | 2024-11-25 12:00 | XMS_ITS ---
Author Organization Nicola Magana III, MD Address [address] [place] [address] [place] [address] Care Team Providers Care Software Business Analyst Name Role Phone Dr. Nicola Magana III Primary Care Provider REASON FOR VISIT Concern Social History Sex Assigned At : Social History Observation Description Sex Assigned At Male Encounters Encounter Location Date Provider Diagnosis Nicola Magana III, MD [address] [place] [address] [place] [address] 11/25/2024 Nicola Magana Plan Of Treatment Next Appt Details Provider Name:Nicola Magana , 08/19/2025 11:00:00 AM, [address] [place] [address] [place], [address], Progress Notes * Bridger CASTANEDA RDOB:[birth year] (59 yo M)Acc No.[id number]:11/25/2024 Progress Notes Patient: Marquez YBARRAGUMARO Bridger Perkins Provider: Maddie Magana MD :1965 A ge:59 Y S ex:Male Date:11/25/2024 Address:[address] [place], [place] [id number] Subjective: * Chief Complaints: * 1 . Concern. * Medical History: Objective: * Vitals: Assessment: Plan: * Treatment: * Images: * The named appointment provid er may or may not be the originator of this progress note, and it is not deemed complete until electronically signed by the appointment provider. Sign off status: Pending * Provider: Maddie Magana MD Date: 0 11/25/2024 Generated for Usama kuhn/Jerrica/Harjit on: 1 07/01/2024 10:54 AM EST
--- OUTSIDE RECORDS SUMMARY | 2025-02-20 06:00 | XMS_ITS ---
Author Organization Nicola Magana III, MD Address [address] [place] [address] [address] [place] [address] Care Team Providers Care Lead Loader Name Role Phone Dr. Nicola Magana III Primary Care Provider Allergies Allergen (clinical drug ingredient) Drug/Non Drug Allergy documented on EMR Reaction Allergy Type Onset Date Status No Known Drug Allergy Unknown Drug Allergy Active Results Component Value Reference Range Notes Lipid Panel Reviewed date:02/21/2025 07:52:48 PM Interpretation: Performing Lab:[facility], [address] [place] [id number] Notes/Report: Triglycerides 101 <150 mg/dL Desirable Triglyceride: less than 150 mg/dL Borderline High Triglyceride 150-199 mg/dL High Triglyceride: 200-499 mg/dL Very High Triglyceride: greater than or equal to 5OO mg/dL Cholesterol 159 <200 mg/dL Desirable Cholesterol: less than 200 mg/dL Borderline High Cholesterol: 200-239 mg/dL High Cholesterol: greater than 239 mg/dL LDL Cholesterol Calculated 96 <100 mg/dL Desirable LDL: less than 100 mg/dL Near Optimal/Above Optimal LDL: 110-129 mg/dL Borderline High LDL: 130-159 mg/dL High LDL: 160-189 mg/dL Very High LDL: greater than or equal to 190 mg/dL HDL Cholesterol 43 >40 mg/dL Desirable HDL: greater than 40 mg/dL Note: This HDL assay may give artificially low results in patients with liver disease. Reason For Referral Reason Consult and Treat Chronic Diarrhea Fecal Incontinence Diagnosis 1 Chronic diarrhea (K5 2.9) Diagnosis 2 Fecal incontinence ( R15.9) Referral Organization Nicola Magana III, MD Referring Provider First Name Nicola Referring Provider Last Name Chino Referring Provider Speciality Internal M edicine Referred Provider Nicola Mandujano Referred Provider Specialty Gastroentero logy General Notes Vivian Bynum 02/23/2025 11:04:56 AM > Referral faxed with progress note. Referral Priority Routine REASON FOR VISIT hyperlipidemia, cervical radiculopathy, gerd, barretts esophagus, BPH, depression Medications Medication SIG (Take, Route, Frequency, Duration) Notes Start Date End Date Status Tylenol 325 MG 1 tablet as needed Orally every 4 hrs As needed for pain or fever 07/08/2024 Active Simvastatin 10 MG 1 tablet every eveni ng Orally Once a day Active Omeprazole 20 MG TAKE (1) CAPSULE BY MOUTH DAILY Active traZODone HCl 50 MG TAKE 1 TABLET BY [facility] TH EVERY NIGHT AT BEDTIME NEEDED Oral Active ARIPiprazole 15 MG Oral A ctive QUEtiapine Fumarate 100 MG as directed O rally one three times a day 01/11/2023 Active Social History Tobacco Use: Social History Observation Description Date Details (start date - stop date) Never Smoker NA - NA Sex Assigned At : Social History Observation Description Sex Assigned At Male Tobacco Control (Standard) Question Answer Notes Tobacco use: Nonsmoker Additional Findings: Tobacco non-user Aggressive nonsmoker Vital Signs Temperature 98.8 degrees Fahrenheit 02/21/20 25 Blood pressure systolic 112 mm Hg 02/21/20 25 Blood pressure diastolic 85 mm Hg 025 Heart Rate 94 /min 02/20/2025 Height 70 in 02/20/2025 Weight 207 lbs 02/20/2025 BMI 29.7 kg/m2 02/20/2025 Encounters Encounter Location Date Provider Diagnosis Nicola Magana III, MD [address] [place] [address] [place] [address] 02/20/2025 Nicola Magana Overweight E66.3 ; M ixed hyperlipidemia E78.2 ; History of Qsfzl-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 His body mass index is now 29. We have discussed a weight reduction strategy. We made plans to lose weight at a rate of one half of a pound per week. 02/20/2025 Mixed hyperlipidemia (ICD-10 - E78.2) The current fasting lipid profile is in range. He has lost 10 pounds. No change in his regimen is necessary. 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 If I cannot get one from old records. I will to a tracing in the office. He is asymptomatic at this time. 02/20/2025 Spondylosis of cervical region without myelopathy or radiculopathy (ICD-10 - M47.812) The pain in his arms does not appear to radiate from the neck. Range of motion was intact in free of pain. 02/20/2025 Hiatal hernia (ICD-1 0 - K44.9) No symptoms are present lately. He will continue with current therapy. 02/20/2025 GERD without esophagitis (ICD-10 - K21.9) His reflux symptoms are well-controlled with medication and no change in his regimen was necessary today. He is sleeping well. 02/20/2025 Depression (ICD-10 - F32.9) His sertraline was discontinued. No side effects. It then encountered. [facility] is [facility] I have requested he be seen by a prescriber.I amm seeing him once a week to ensure stability. Stability is in a relationship with an appropriate mental health provider. 02/20/2025 Barretts esophagus without dysplasia (ICD-10 - K22.70) He has no symptoms of dysphagia reflux today. His surveillance with upper endoscopy will continue with the appropriate intervals.. Plan Of Treatment Medication Medication Name Sig Start Date Stop Date Notes Tylenol 325 MG 1 tablet as needed O rally every 4 hrs 07/08/2024 Simvastatin 10 MG 1 tablet every eveni ng Orally Once a day Omeprazole 20 MG TAKE (1) CAPSULE BY MOUTH DAILY traZODone HCl 50 MG TAKE 1 TABLET BY [facility] TH EVERY NIGHT AT BEDTIME NEEDED Oral ARIPiprazole 15 MG Oral QUEtiapine Fumarate 100 MG as directed O rally one three times a day 01/11/2023 Pending Test Test Name Order Date PROFILE, FASTING (COMPREHENSIVE METABOLI C) 02/20/2025 PSA, TOTAL 02/20/2025 CBC w DIFF 02/20/2025 Referrals Referral Date Details 02/20/2025 02/20/2025, Consult and Treat Chronic Diarrhea Fecal Incontinence, Nicola Mandujano Next Appt Details Follow Up: 4 Months, Reason: OV Provider Name:Nicola Magana , 08/19/2025 11:00:00 AM, [address] [place] [address], [place] [address], [place], [phone], Progress Notes * Bridger CASTANEDA RDOB:[birth year] (59 yo M)Acc No.[id number]:02/20/2025 Progress Notes Patient: Marquez YBARRAGUMAROBridger Provider: Maddie Magana MD :1965 A ge:59 Y S ex:Male Date:02/20/2025 Address:[address] [place] [address], [id number] Subjective: * Chief Complaints: * H yperlipidemiaCervical radiculopathyGerdBarretts esophagusBPHDepression * HPI: C OVID-19 Screening: He returns to the office for medical management. He was brought by his mother. He is living in a halfway and is quite stable. He has had no new medications. He feels generally healthy and well. His appetite is good. Vital signs are stable. Questions H ave you had any new onset fever, chills, cough, congestion, sore throat, shortness of breath, muscle aches? N o * ROS: G eneral/Constitutional: pain [...] enies. D iarrhea d enies. H eartburn o ccasional. N ausea d enies. R ectal bleeding [...] pain d enies. P sychiatric: Depressed mood w hich is mild. * Medical History: * Surgical History: t onsillectomy and adenoidectomy 1975bunionectomy/bilateral, [facility], Dr. Pulido 2003esophagogastric duodenoscopy, [facility], Dr. Nicola Mandujano, positive for Prieto's [...] Social History: T obacco Use: T obacco Control (Standard) T obacco use: N onsmoker A dditional Findings: Tobacco non-user A ggressive nonsmoker Karine campbell was born at [place], [place]. He is single and has no children. He is disabled and not working. The patient reported feeling less depressed and adjusting well. He also mentioned having some trouble exercising due to a knee issue. He was happy with his living situation and was planning to start working on reading and writing. * Medications: T akingTylenol 325 MG Tablet 1 tablet as needed Orally every 4 hrs As needed for pain or feverQUEtiapine Fumarate 100 MG Tablet as directed Orally one three times a day traZODone HCl 50 MG Tablet TAKE 1 TABLET BY MOUTH EVERY NIGHT AT BEDTIME NEEDED Oral ARIPiprazole 15 MG Tablet Oral Omeprazole 20 MG Capsule Delayed Release TAKE (1) CAPSULE BY MOUTH DAILY Simvastatin 10 MG Tablet 1 tablet every evening Orally Once a day Medication List reviewed and reconciled with the patientTaking Tylenol 325 MG Tablet 1 tablet as needed Orally every 4 hrs As needed for pain or feverTaking QUEtiapine Fumarate 100 MG Tablet as directed Orally one three times a day Taking traZODone HCl 50 MG Tablet TAKE 1 TABLET BY MOUTH EVERY NIGHT AT BEDTIME NEEDED Oral Taking ARIPiprazole 15 MG Tablet Oral Taking Omeprazole 20 MG Capsule Delayed Release TAKE (1) CAPSULE BY MOUTH DAILY Taking Simvastatin 10 MG Tablet 1 tablet every evening Orally Once a day Medication List reviewed and reconciled with the patient * Allergies: N o Known Drug Allergyno[Allergies Verified] Objective: * Vitals: H t: 70, Wt: 207, BMI:29.7, BP: 112/85, HR: 94, Temp: 98.8, Wt-k.89. * P ast Orders: Lab:Complete Blood Count Aut o Diff * Collection Date 02/20/2025 12/11/2024 11/08/2022 Collection Time 11:12 AM 10:40 AM 12:19 PM 11:30 AM Order Date 02/20/2025 12/11/2024 11/08/2022 06/23/2022 White Blood Count 11.6 H (Ref Range: 4.8-10.8 X10*3/uL) 6.5 (Ref Range: 4.8-10.8 X10*3/uL) 9.5 (Ref Range: 4.8-10.8 X10*3/uL) 6.9 (Ref Range: 4.8-10.8 X10*3/uL) Red Blood Count 5.35 (Ref Range: 4.60-5.80 X10*6/uL) 5.11 (Ref Range: 4.60-5.80 X10*6/uL) 4.79 (Ref Range: 4.60-5.80 X10*6/uL) 5.48 (Ref Range: 4.60-5.80 X10*6/uL) Hemoglobin 16.0 (Ref Range: 14.0-18.0 g/dl) 15.3 (Ref Range: 14.0-18.0 g/dl) 14.3 (Ref Range: 14.0-18.0 g/dl) 16.3 (Ref Range: 14.0-18.0 g/dl) Hematocrit 47.5 (Ref Range: 42.0-52.0 %) 45.1 (Ref Range: 42.0-52.0 %) 43.2 (Ref Range: 42.0-52.0 %) 49.2 (Ref Range: 42.0-52.0 %) Mean Corpuscular Volume 88.8 (Ref Range: 80.0-98.0 fL) 88.3 (Ref Range: 80.0-98.0 fL) 90.2 (Ref Range: 80.0-98.0 fL) 89.8 (Ref Range: 80.0-98.0 fL) Mean Corpuscular Hemoglobin 29.9 (Ref Range: 27.0-33.0 pg) 29.9 (Ref Range: 27.0-33.0 pg) 29.9 (Ref Range: 27.0-33.0 pg) 29.7 (Ref Range: 27.0-33.0 pg) Mean Corpuscular HGB Conc 33.7 (Ref Range: 31.0-36.0 g/dl) 33.9 (Ref Range: 31.0-36.0 g/dl) 33.1 (Ref Range: 31.0-36.0 g/dl) 33.1 (Ref Range: 31.0-36.0 g/dl) Red Cell Distribution Width 12.5 (Ref Range: 11.0-16.0 %) 12.6 (Ref Range: 11.0-16.0 %) 12.5 (Ref Range: 11.0-16.0 %) 12.3 (Ref Range: 11.0-16.0 %) Platelet Count 208 (Ref Range: 160-400 X10*3/uL) 154 L (Ref Range: 160-400 X10*3/uL) 230 (Ref Range: 160-400 X10*3/uL) 205 (Ref Range: 160-400 X10*3/uL) Mean Platelet Volume 10.5 (Ref Range: 9.4-12.4 fL) 10.8 (Ref Range: 9.4-12.4 fL) 10.5 (Ref Range: 9.4-12.4 fL) 10.4 (Ref Range: 9.4-12.4 fL) Neutrophils Percent Auto 72.6 (Ref Range: 45-73 %) 64.9 (Ref Range: 45-73 %) 62.9 (Ref Range: 45-73 %) 56.5 (Ref Range: 45-73 %) Imm Gran Pct Auto 0.6 H (Ref Range: 0.0-0.4 %) 0.5 H (Ref Range: 0.0-0.4 %) 0.7 H (Ref Range: 0.0-0.4 %) 0.3 (Ref Range: 0.0-0.4 %) Lymphocytes Percent Auto 16.8 L (Ref Range: 20-40 %) 24.8 (Ref Range: 20-40 %) 25.1 (Ref Range: 20-40 %) 30.9 (Ref Range: 20-40 %) Monocytes Percent Auto 9.2 (Ref Range: 2-11 %) 8.7 (Ref Range: 2-11 %) 10.2 (Ref Range: 2-11 %) 10.7 (Ref Range: 2-11 %) Eosinophils Percent Auto 0.5 (Ref Range: 0-4 %) 0.6 (Ref Range: 0-4 %) 0.9 (Ref Range: 0-4 %) 1.2 (Ref Range: 0-4 %) Basophils Percent Auto 0.3 (Ref Range: 0-2 %) 0.5 (Ref Range: 0-2 %) 0.2 (Ref Range: 0-2 %) 0.4 (Ref Range: 0-2 %) NRBC Pct Auto 0.0 (Ref Range: 0.0-0.2 /100WBC) 0.0 (Ref Range: 0.0-0.2 /100WBC) 0.0 (Ref Range: 0.0-0.2 /100WBC) 0.0 (Ref Range: 0.0-0.2 /100WBC) Neutrophils Absolute Auto 8.4 H (Ref Range: 2.0-8.3 x10*3/uL) 4.2 (Ref Range: 2.0-8.3 x10*3/uL) 6.0 (Ref Range: 2.0-8.3 x10*3/uL) 3.9 (Ref Range: 2.0-8.3 x10*3/uL) Imm Gran Abs Auto 0.07 H (Ref Range: 0.00-0.03 X10*3/uL) 0.03 (Ref Range: 0.00-0.03 X10*3/uL) 0.07 H (Ref Range: 0.00-0.03 X10*3/uL) 0.02 (Ref Range: 0.00-0.03 X10*3/uL) Lymphocytes Absolute Auto 2.0 (Ref Range: 1.2-4.9 X10*3/uL) 1.6 (Ref Range: 1.2-4.9 X10*3/uL) 2.4 (Ref Range: 1.2-4.9 X10*3/uL) 2.1 (Ref Range: 1.2-4.9 X10*3/uL) Monocytes Absolute Auto 1.1 (Ref Range: 0.1-1.2 X10*3/uL) 0.6 (Ref Range: 0.1-1.2 X10*3/uL) 1.0 (Ref Range: 0.1-1.2 X10*3/uL) 0.7 (Ref Range: 0.1-1.2 X10*3/uL) Eosinophils Absolute Auto 0.1 (Ref Range: 0.0-0.4 X10*3/uL) 0.0 (Ref Range: 0.0-0.4 X10*3/uL) 0.1 (Ref Range: 0.0-0.4 X10*3/uL) 0.1 (Ref Range: 0.0-0.4 X10*3/uL) Basophils Absolute Auto 0.0 (Ref Range: 0.0-0.2 X10*3/uL) 0.0 (Ref Range: 0.0-0.2 X10*3/uL) 0.0 (Ref Range: 0.0-0.2 X10*3/uL) 0.0 (Ref Range: 0.0-0.2 X10*3/uL) NRBC Abs Auto 0.000 (Ref Range: 0.0-0.012 X10*3/uL) 0.000 (Ref Range: 0.0-0.012 X10*3/uL) 0.000 (Ref Range: 0.0-0.012 X10*3/uL) 0.000 (Ref Range: 0.0-0.012 X10*3/uL) * Lab:Rm Davalos. Payame l Fast * Collection Date 02/20/2025 12/11/2024 11/08/2022 3 Collection Time 11:12 AM 10:40 AM 12:19 PM 11:30 AM Order Date 02/20/2025 12/11/2024 11/08/2022 06/23/2022 Sodium 144 (Ref Range: 135-145 mmol/L) 142 (Ref Range: 135-145 mmol/L) 148 H (Ref Range: 135-145 mmol/L) 141 (Ref Range: 135-145 mmol/L) Bilirubin Total 1.3 H (Ref Range: 0.0-1.0 mg/dL) 1.0 (Ref Range: 0.0-1.0 mg/dL) 1.4 H (Ref Range: 0.0-1.0 mg/dL) 2.2 H (Ref Range: 0.0-1.0 mg/dL) Aspartate Amino Transferase 22 (Ref Range: 5-37 U/L) 22 (Ref Range: 5-37 U/L) 16 (Ref Range: 5-37 U/L) 19 (Ref Range: 5-37 U/L) Alanine Aminotransferase 21 (Ref Range: 0-40 U/L) 23 (Ref Range: 0-40 U/L) 17 (Ref Range: 0-40 U/L) 23 (Ref Range: 0-40 U/L) Total Protein 6.7 (Ref Range: 6.5-8.0 g/dL) 6.2 L (Ref Range: 6.5-8.0 g/dL) 6.2 L (Ref Range: 6.5-8.0 g/dL) 6.5 (Ref Range: 6.5-8.0 g/dL) Albumin Level 4.8 (Ref Range: 3.5-5.0 g/dL) 4.4 (Ref Range: 3.5-5.0 g/dL) 4.3 (Ref Range: 3.5-5.0 g/dL) 4.6 (Ref Range: 3.5-5.0 g/dL) Alkaline Phosphatase 93 (Ref Range: 39-117 U/L) 91 (Ref Range: 39-117 U/L) 76 (Ref Range: 39-117 U/L) 86 (Ref Range: 39-117 U/L) Potassium 4.1 (Ref Range: 3.3-5.1 mmol/L) 4.1 (Ref Range: 3.3-5.1 mmol/L) 3.8 (Ref Range: 3.3-5.1 mmol/L) 4.5 (Ref Range: 3.3-5.1 mmol/L) Chloride 109 H (Ref Range: 96-108 mmol/L) 108 (Ref Range: 96-108 mmol/L) 111 H (Ref Range: 96-108 mmol/L) 104 (Ref Range: 96-108 mmol/L) Carbon Dioxide 27 (Ref Range: 22-29 mmol/L) 25 (Ref Range: 22-29 mmol/L) 28 (Ref Range: 22-29 mmol/L) 29 (Ref Range: 22-29 mmol/L) Anion Gap 12 (Ref Range: 12-20) 13 (Ref Range: 12-20) 13 (Ref Range: 12-20) 13 (Ref Range: 12-20) Blood Urea Nitrogen 26 H (Ref Range: 9-16 mg/dL) 16 (Ref Range: 9-16 mg/dL) 22 H (Ref Range: 9-16 mg/dL) 22 H (Ref Range: 9-16 mg/dL) Creatinine 1.01 (Ref Range: 0.5-1.4 mg/dL) 0.75 (Ref Range: 0.5-1.4 mg/dL) 0.81 (Ref Range: 0.5-1.4 mg/dL) 0.83 (Ref Range: 0.5-1.4 mg/dL) Estimated Glomerular Filt Rate > 60 > 60 > 60 > 60 Glucose Fasting 92 (Ref Range: 60-99 mg/dL) 84 (Ref Range: 60-99 mg/dL) 82 (Ref Range: 60-99 mg/dL) 93 (Ref Range: 60-99 mg/dL) Calcium 9.3 (Ref Range: 8.4-10.2 mg/dL) 9.2 (Ref Range: 8.4-10.2 mg/dL) 9.3 (Ref Range: 8.4-10.2 mg/dL) 9.6 (Ref Range: 8.4-10.2 mg/dL) * Lab:Lipid Panel * Collection Date 02/20/2025 12/11/2024 11/08/2022 Collection Time 11:12 AM 10:40 AM 12:19 PM 11:30 AM Order Date 02/20/2025 12/11/2024 11/08/2022 06/23/2022 Triglycerides 101 (Ref Range: <150 mg/dL) 120 (Ref Range: <150 mg/dL) 81 (Ref Range: mg/dL) 84 (Ref Range: mg/dL) Cholesterol 159 (Ref Range: <200 mg/dL) 160 (Ref Range: <200 mg/dL) 162 (Ref Range: mg/dL) 198 (Ref Range: mg/dL) LDL Cholesterol Calculated 96 (Ref Range: <100 mg/dL) 96 (Ref Range: <100 mg/dL) 101 (Ref Range: mg/dl) 125 (Ref Range: mg/dl) HDL Cholesterol 43 (Ref Range: >40 mg/dL) 40 L (Ref Range: >40 mg/dL) 45 (Ref Range: mg/dL) 57 (Ref Range: mg/dL) Clinical Info: Please fast for 12-14 hours prior to having this labwork done. You may have black coffee or tea with no milk or sugar. May have water,Please have this testing 1 week prior to your next appointment,HUGO Campbell FAX COMPLETED RESULTS TO [phone] * Lab:Prostate Specific Antige n * Collection Date 02/20/2025 12/11/2024 10/12/2021 Collection Time 11:12 AM 10:40 AM 10:01 AM Order Date 02/20/2025 12/11/2024 10/12/2021 Prostate Specific Antigen 0.48 (Ref Range: <0.05-4.0 ng/mL) 0.44 (Ref Range: <0.05-4.0 ng/mL) 0.36 (Ref Range: <0.05-4.0 ng/mL) * Examination: G eneral Examination: GENERAL APPEARANCE: p leasant, well nourished, well developed, in no acute distress, calm and relaxed: overweight: man. HEAD: a traumatic, normocephalic. EYES: e [...] sounds normal, no ascites, no organomegaly, no mass: overweight. RECTAL EXAM: n ot examined. MUSCULOSKELETAL: e xtremities unremarkable, no clubbing, cyanosis or edema. PERIPHERAL PULSES: n ormal. NEUROLOGIC: a lert and oriented, cranial nerves 2-12 grossly intact, deep tendon reflexes 2+ symmetrical, motor strength normal upper and lower extremities, sensory exam intact, Significant developmental delay, speech clear. PSYCH: a lert, oriented. Assessment: * Assessment: 1. O verweight - E66.3 (Primary) N otes :He has lost 10pounds. His body mass index is now 29. We have discussed a weight reduction strategy. We made plans to lose weight at a rate of one half of a pound per week. 2 . M ixed hyperlipidemia - E78.2 N otes :The current fasting lipid profile is in range. He has lost 10 pounds. No change in his regimen is necessary. 3 . 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 If I cannot get one from old records. I will to a tracing in the office. He is asymptomatic at this time. 4 . S pondylosis of cervical region without myelopathy or radiculopathy - M47.812 N otes :The pain in his arms does not appear to radiate from the neck. Range of motion was intact in free of pain. 5 . H iatal hernia - K44.9 N otes :No symptoms are present lately. He will continue with current therapy. 6 . G ERD without esophagitis - K21.9 N otes :His reflux symptoms are well-controlled with medication and no change in his regimen was necessary today. He is sleeping well. 7 . D epression - F32.9 N otes :His sertraline was discontinued. No side effects. It then encountered. He is now involved with the [employer] [facility] [employer]. I have requested he be seen by a prescriber.I amm seeing him once a week to ensure stability. Stability is in a relationship with an appropriate mental health provider. 8 . B arretts esophagus without dysplasia - K22.70 N otes :He has no symptoms of dysphagia reflux today. His surveillance with upper endoscopy will continue with the appropriate intervals.. Plan: * Treatment: * Labs: * L ab: PROFILE, FASTING (COMPREHENSIVE METABOLIC) L ab: PSA, TOTAL L ab: CBC w DIFF L ab: Lipid Panel (Collection Date & Time - 02/20/2025 11:12 AM) Value Reference Range T riglycerides 101 <150 - mg/dL * C holesterol 159 <200 - mg/dL * L DL Cholesterol Calculated 96 <100 - mg/dL * H DL Cholesterol 43 >40 - mg/dL * Procedure Codes: * Preventive Medicine: Counseling: [...] Other reason not done * Follow Up: 4 Months (Reason: OV) * Images: * Sign off status: Completed true * Provider: Maddie Magana MD Date: 0 02/20/2025 Generated for Usama kuhn/Jerrica/Soniasmitting on: 07/01/2024 10:55 AM EST History and Physical Notes * HPI (History of Present Illness) Category Sub-Category Detail Notes COVID-19 Screening Questions Have you had any new onset fever, chills, cough, congestion, sore throat, shortness of breath, muscle aches?: No Examination Category Sub-Category Detail Notes General Examination GENERAL APPEARANCE: pleasant , well nourished, well developed, in no acute distress, calm and relaxed: overweight: man HEAD: atraumatic, normocep halic EYES: eomi, perrla, anicte jeffrey, conjugate EARS: normal NOSE: septum intact NECK/THYROID: no jugular venous di stention, no carotid bruit, thyroid normal HEART: no clicks, gallops, murmurs, or rubs, regular rhythm, S1, S2 normal, no s3, or vascular bruits LUNGS: clear to auscultatio n ABDOMEN: bowel sounds normal, no ascites, no organomegaly, no mass: overweight NEUROLOGIC: alert and oriented, cranial nerves 2-12 grossly intact, deep tendon reflexes 2+ symmetrical, motor strength normal upper and lower extremities, sensory exam intact, Significant developmental delay, speech clear SKIN: no suspicious lesion s, anicteric PERIPHERAL PULSES: normal BREASTS: no masses palpable b ilaterally MUSCULOSKELETAL: extremities unremark able, no clubbing, cyanosis or edema LYMPH NODES: no enlarged lymph no roberto,spleen normal RECTAL EXAM: not examined PSYCH: alert, oriented ORAL CAVITY: normal, unremarkable Consultation Request Notes Referral Date Referring Provider Referred Provider Not lior 02/20/2025 Nicola Magana, Nicola carter Chronic Diarrhea Fecal Incontinence
--- OUTSIDE RECORDS SUMMARY | 2025-04-06 09:00 | XMS_ITS ---
Author Organization Nicola Magana III, MD Address [address] [place] [address] [place] [address] Care Team Providers Care [employer] Name Role Phone Dr. Nicola Magana III Primary Care Provider [phone] Allergies Allergen (clinical drug ingredient) Drug/Non Drug Allergy documented on EMR Reaction Allergy Type Onset Date Status No Known Drug Allergy Unknown Drug Allergy Active REASON FOR VISIT Coughing, Acute bronchitis, Hyperlipidemia, Neck pain, Occurred, Cognitive impairment, Benign prostatic hypertrophy Medications Medication SIG (Take, Route, Frequency, Duration) Notes Start Date End Date Status Omeprazole 20 MG TAKE (1) CAPSULE BY MOUTH DAILY Active QUEtiapine Fumarate 100 MG as directed O rally one three times a day 01/11/2023 Active Tylenol 325 MG 1 tablet as needed Orally every 4 hrs As needed for pain or fever 07/08/2024 Active ARIPiprazole 15 MG Oral A ctive traZODone HCl 50 MG TAKE 1 TABLET BY LUH TH EVERY NIGHT AT BEDTIME NEEDED Oral Active Simvastatin 10 MG 1 tablet every eveni ng Orally Once a day Active Social History Tobacco Use: Social History Observation Description Date Details (start date - stop date) Never Smoker NA - NA Sex Assigned At : Social History Observation Description Sex Assigned At Male Tobacco Control (Standard) Question Answer Notes Tobacco use: Nonsmoker Additional Findings: Tobacco non-user Aggressive nonsmoker Vital Signs Temperature 98.2 degrees Fahrenheit 04/06/20 25 Blood pressure systolic 121 mm Hg 04/06/20 25 Blood pressure diastolic 86 mm Hg 025 Heart Rate 88 /min 04/06/2025 Height 70 in 04/06/2025 Weight 205 lbs 04/06/2025 BMI 29.41 kg/m2 04/06/2025 Encounters Encounter Location Date Provider Diagnosis Nicola Magana III, MD [address] [place] [address] DR [place], [place] [id number] 04/06/2025 Nicola Magana Learning disability F81.9 ; Overweight E66.3 ; Mixed hyperlipidemia E78.2 ; 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 The [employer] [facility] [employer] has placed him in a custodial house. He lives with his mother. He says he is very happy there. 04/06/2025 Overweight (ICD-10 - E66.3) He has lost 10pounds. His body mass index is now 29. We have discussed a weight reduction strategy. We made plans to lose weight at a rate of one half of a pound per week. 04/06/2025 Mixed hyperlipidemia (ICD-10 - E78.2) The current fasting lipid profile is in range. He has lost 10 pounds. No change in his regimen is necessary. 04/06/2025 History of Dejqz-Mzdlknwot-Kwaba (WPW) syndrome (ICD-10 - Z86.79) I do not have an EKG tracing. If I cannot get one from old records. I will to a tracing in the office. He is asymptomatic at this time. 04/06/2025 Spondylosis of cervical region without myelopathy or radiculopathy (ICD-10 - M47.812) The pain in his arms does not appear to radiate from the neck. Range of motion was intact in free of pain. 04/06/2025 Hiatal hernia (ICD-1 0 - K44.9) No symptoms are present lately. He will continue with current therapy. 04/06/2025 GERD without esophagitis (ICD-10 - K21.9) His reflux symptoms are well-controlled with medication and no change in his regimen was necessary today. He is sleeping well. 04/06/2025 Barretts esophagus without dysplasia (ICD-10 - K22.70) He has no symptoms of dysphagia reflux today. His surveillance with upper endoscopy will continue with the appropriate intervals.. 04/06/2025 BPH (benign prostati c hyperplasia) (ICD-10 - N40.0) He rises from sleep once a night. We have discussed lifestyle modifications he could make to reduce nocturia. Plan Of Treatment Medication Medication Name Sig Start Date Stop Date Notes Omeprazole 20 MG TAKE (1) CAPSULE BY MOUTH DAILY QUEtiapine Fumarate 100 MG as directed O rally one three times a day 01/11/2023 Tylenol 325 MG 1 tablet as needed O rally every 4 hrs 07/08/2024 ARIPiprazole 15 MG Oral traZODone HCl 50 MG TAKE 1 TABLET BY [facility] TH EVERY NIGHT AT BEDTIME NEEDED Oral Simvastatin 10 MG 1 tablet every eveni ng Orally Once a day Next Appt Details Follow Up: 4 Weeks, Reason: ov Provider Name:Nicola Magana , 08/19/2025 11:00:00 AM, [address] [place] [address], [address], Progress Notes * Bridger CASTANEDA RDOB:[birth year] (59 yo M)Acc No.[id number]:04/06/2025 Progress Notes Patient: Marquez LUNAWIL Bridger R Provider: Maddie Magana MD :1965 A ge:59 Y S ex:Male Date:04/06/2025 Address:[address] [place] [address] Subjective: * Chief Complaints: * C oughingAcute bronchitisHyperlipidemiaNeck painOccurredCognitive impairmentBenign prostatic hypertrophy * HPI: C OVID-19 Screening: He returns periodically for a scheduled medical maintenance.? S odalis his last visit he has been well. He has had a minor upper respiratory infection and now has a cough for which she is being treated with guaifenesin DM. His lungs were clear today and he was afebrile. No new medications were present. He seems medically stable and will be followed carefully. Questions H ave you had any new [...] Surgical History: t onsillectomy and adenoidectomy 1975bunionectomy/bilateral, [facility], Dr. Pulido 2003esophagogastric duodenoscopy, [facility], Dr. Nicola Mandujano, positive for Prieto's [...] ggressive nonsmoker Karine campbell was born at [place], [place]. He is single and has no children. He is disabled and not working. The patient reported feeling less depressed and adjusting well. He also mentioned having some trouble exercising due to a knee issue. He was happy with his living situation and was planning to start working on reading and writing. * Medications: T akingSimvastatin 10 MG Tablet 1 tablet every evening Orally Once a day Omeprazole 20 MG Capsule Delayed Release TAKE (1) CAPSULE BY MOUTH DAILY Tylenol 325 MG Tablet 1 tablet as needed Orally every 4 hrs As needed for pain or feverTaking Simvastatin 10 MG Tablet 1 tablet every evening Orally Once a day Taking Omeprazole 20 MG Capsule Delayed Release TAKE (1) CAPSULE BY MOUTH DAILY Taking Tylenol 325 MG Tablet 1 tablet as needed Orally every 4 hrs As needed for pain or feverDiscontinuedQUEtiapine Fumarate 100 MG Tablet as directed Orally one three times a day traZODone HCl 50 MG Tablet TAKE 1 TABLET BY MOUTH EVERY NIGHT AT BEDTIME NEEDED Oral ARIPiprazole 15 MG Tablet Oral Medication List reviewed and reconciled with the patientDiscontinued QUEtiapine Fumarate 100 MG Tablet as directed Orally one three times a day Discontinued traZODone HCl 50 MG Tablet TAKE 1 TABLET BY MOUTH EVERY NIGHT AT BEDTIME NEEDED Oral Discontinued ARIPiprazole 15 MG Tablet Oral Medication List reviewed and reconciled with the patient * Allergies: N o Known Drug Allergyno[Allergies Verified] Objective: * Vitals: H t: 70, Wt: 205, BMI:29.41, BP: 121/86, HR: 88, Temp: 98.2, Wt-k.99. * Examination: G eneral Examination: GENERAL APPEARANCE: [...] and lower extremities, sensory exam intact, Significant cognitive impairment. PSYCH: : confused: poor eye contact, Significant cognitive impairment. Assessment: * Assessment: 1. L earning disability - F81.9 (Primary) N otes :His cognitive functions and bodily habitus, have remained stable. The [employer] [facility] [employer] has placed him in a custodial house. He lives with his mother. He says he is very happy there. 2 . O verweight - E66.3 N otes :He has lost 10pounds. His body mass index is now 29. We have discussed a weight reduction strategy. We made plans to lose weight at a rate of one half of a pound per week. 3 . M ixed hyperlipidemia - E78.2 N otes :The current fasting lipid profile is in range. He has lost 10 pounds. No change in his regimen is necessary. 4 . 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 If I cannot get one from old records. I will to a tracing in the office. He is asymptomatic at this time. 5 . S pondylosis of cervical region without myelopathy or radiculopathy - M47.812 N otes :The pain in his arms does not appear to radiate from the neck. Range of motion was intact in free of pain. 6 . H iatal hernia - K44.9 N otes :No symptoms are present lately. He will continue with current therapy. 7 . G ERD without esophagitis - K21.9 N otes :His reflux symptoms are well-controlled with medication and no change in his regimen was necessary today. He is sleeping well. 8 . B arretts esophagus without dysplasia - K22.70 N otes :He has no symptoms of dysphagia reflux today. His surveillance with upper endoscopy will continue with the appropriate intervals.. 9 . B PH (benign prostatic hyperplasia) - N40.0 N otes :He rises from sleep once a night. We have discussed lifestyle modifications he could make to reduce nocturia. Plan: * Treatment: * Procedure Codes: * Preventive Medicine: Counseling: [...] reason not done * Follow Up: 4 Weeks (Reason: ov) * Images: * Sign off status: Completed true * Provider: Maddie Magana MD Date: Generated for Usama kuhn/Jerrica/Abranitting on: 07/01/2024 10:54 [...] and lower extremities, sensory exam intact, Significant cognitive impairment SKIN: no suspicious lesion s, anicteric PERIPHERAL PULSES: normal BREASTS: no masses palpable b ilaterally MUSCULOSKELETAL: extremities unremark able, no clubbing, cyanosis or edema LYMPH NODES: no enlarged lymph no roberto,spleen normal RECTAL EXAM: not examined PSYCH: : confused: poor eye contact, Significant cognitive impairment ORAL CAVITY: normal, unremarkable
[2025-05-01 10:20] VITALS: BP 118/80; PULSE 81; O2SAT 99; BMI 30.7
--- NOTE | 2025-05-01 10:20 | A.OFFVIS_ITS ---
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 After the last office visit patient started on weight loss program and has intentionally lost 20 lb. At this time he does not want to continue CPAP therapy. He also tried Incruse and did not feel like it provided any symptomatic benefit. He denies any pulmonary related concerns or complaints at this time. [facility] Medical History (Updated 10/30/24 @ 15:51 by Angel Rogers MD) Injury of right hand Prieto esophagus Anxiety Cognitive impairment, mild, so stated Hyperlipemia Hiatal hernia with GERD WPW (Rkzcl-Wcskllbxk-Qdglo syndrome) Surgical History History of esophagogastroduodenoscopy (EGD) History of eyelid surgery History of bunionectomy History of tonsillectomy and adenoidectomy Family History (Updated 07/07/20 @ 10:15 by CHEYENNE Nichols) Father No problems noted. Mother No problems noted. Social History (Updated 07/08/20 @ 09:39 by CHEYENNE Nichols) Patient Tobacco Use Status: Never used Tobacco Review of Systems Const Denies daytime sleepiness, Denies excessive sweating, Denies fatigue, Denies fever(s), Denies lethargy, Denies malaise, Denies night sweats, Denies snoring and Denies weight loss Eyes Denies blurry vision and Denies itchy eyes ENT Denies nasal congestion, Denies post nasal drip, Denies sinus pain, Denies sinus pressure and Denies other ( Thrush) Card Denies chest pain, Denies pedal edema, Denies dyspnea, Denies orthopnea and Denies paroxysmal nocturnal dyspnea Resp Denies cough, Denies hemoptysis, Denies excessive phlegm production, Denies dyspnea, Denies snoring and Denies wheezing GI Denies abdominal pain and Denies heartburn Musc Denies myalgias, Denies arthralgias and Denies joint swelling Skin/Breast Denies rash Neuro Denies memory loss and Denies seizure-like activity Psych Denies abnormal sleep pattern, Denies anxiety and Denies memory loss Endo Denies excessive sweating, Denies fatigue and Denies heat intolerance Agus/Lymph Denies easy bruising Aller/Immun Denies itchy eyes, Denies seasonal rhinorrhea and Denies wheezing Physical Exam Vital Signs: Last Vital Signs Pulse 81 05/01/25 10:20 BP 118/80 05/01/25 10:20 Pulse Ox 99 05/01/25 10:20 Oxygen Delivery Method Room Air 05/01/25 10:20 BMI result Body Mass Index 30.7 Const General: no acute distress and alert Nutritional Appearance: not obese Orientation/consciousness: Other orientation findings ( oriented) HEENT Head: Yes atraumatic Eyes General: appearance normal, both eyes and all related structures Sclerae: sclerae normal EOM: EOMs intact bilaterally Neck Neck: Yes supple Lymphatic: no lymphadenopathy noted Resp Effort & Inspection: normal respiratory effort and no use of accessory muscles Auscultation: clear to auscultation bilaterally Cardio Rate: regular rate Rhythm: regular rhythm Heart sounds: no gallops, no murmurs and no rubs Skin General skin exam: other ( warm) Extrem General: No clubbing, No cyanosis and No edema Assessment & Plan Assessment & Plan (1) WILMA (obstructive sleep apnea): Code(s): G47.33 - Obstructive sleep apnea (adult) (pediatric) Category: Medical Plan: Improving with intentional weight loss. Patient at this time is not interested in further utilization of CPAP therapy. Will cancel CPAP therapy. (2) Cough: Code(s): R05.9 - Cough, unspecified Category: Medical Plan: Resolved. Patient no longer using Incruse. Coding Level of Care Code Est Pt Level 3 (66548) Diagnoses WILMA (obstructive sleep apnea) G47.33 Cough R05.9
--- OUTSIDE RECORDS SUMMARY | 2025-05-01 10:55 | XMS_ITS | Patient Health Record ---
Author Organization [facility] Address [address] [place] [address] Care Team Providers Care [employer] Lab Technician Name Role Phone Nicola Magana MD Primary Care Provider Unavailab Nicola Munoz Unavailable [phone] Allergies No Known Allergies Reason For Referral No Information Medications Medication SIG (Take, Route, Frequency, Duration) Notes Start Date End Date Status Simvastatin 10 MG Tablet 1 tablet in the evening Orally Once a day Active Azithromycin 500 MG Tablet 1 tablet Oral ly Daily; Duration: 3 days 04/10/2023 Active QUEtiapine Fumarate 100 MG Tablet 1 tablet at bedtime Orally THREE TIMES a day Active Omeprazole 20 MG Capsule Delayed Release 1 capsule 30 minutes before morning meal Orally Once a day Active Immunizations Vaccine Route Administration Date Status Comme nts Influenza Unknown 02/09/2019 Administered Social History Tobacco Use: Social History Observation Description Date Details (start date - stop date) Never Smoker NA - NA Social History Drugs/Alcohol: Social Info Question Answer Notes Alcohol Screen Did you have a drink containing alcohol in the past year? No Points 0 Interpretation Negative Tobacco Use: Social Info Question Answer Notes Tobacco Use/Smoking Patient is a nonsmoker Additional Details Category Social Info Options Details Miscellaneous: Marital status: Single Occupation: No job presently Living with: Lives with mothe r and father Section Notes: Nonsmoker; no alcohol Nonsmoker; no alcohol Nonsmoker; no alcohol Problems Problem Type SNOMED Code ICD Code Onset Dates Problem Status W/U Status Risk Notes Problem Screening for malignant neoplasm of colon (307796693) Encounter for screening for malignant neoplasm of colon (Z12.11) Active confirmed Problem Prieto's esophagus (553016825) Prieto's esophagus without dysplasia (K22.70) Active confirmed Problem Diverticular disease of colon (388234974) Diverticulosis of large intestine without perforation or abscess without bleeding (K57.30) Active confirmed Problem Gastroesophageal reflux disease without esophagitis (304706998) Gastroesophageal reflux disease without esophagitis (K21.9) Active confirmed Problem Gastroesophageal reflux disease (292630368) Gastroesophageal reflux disease, esophagitis presence not specified (K21.9) Active confirmed Problem Gastroesophageal reflux disease (500202460) GERD (gastroesophageal reflux disease) (K21.9) Active confirmed Problem Prieto esophagus (340493082) Prieto esophagus (K22.70) Active confirmed Problem Diarrhea (41185976) Diarrhea, unspecified type (R19.7) Active confirmed Problem Altered bowel habits (02580638) Bowel habit changes (R19.4) Active confirmed Plan [...] 11/18/2019 UPPER GI ENDOSCOPY 04/03/2023 COLONOSCOPY 04/03/2023 Next Appt Details Provider Name:Nicola Mandujano , 06/19/2025 02:20:00 PM, [address] [place] [address], [place] [address], [place], [address], Insurance Providers Payer Name Payer Address Payer Phone Subscriber Number Group Number Insured Name Patient Relationship to Insured Coverage Start Date Coverage End Date MEDICARE OF [place] [address] [place] [address] [phone] [id number] GARY HAYS Self - patient is the insured MEDICAID OF [facility] [address] [place] [address] [id number] GARY HAYS Self - patient is the insured Medical (General) History Medical History History ICD Code Denies OR,DM,CVA,Lung disease,renal dise ase GERD-upper endoscopy in December [...]
--- OUTSIDE RECORDS SUMMARY | 2025-05-01 10:56 | XMS_ITS | Patient Health Record ---
Author Organization Nicola Magana III, MD Address [address] [place] [address] [address] [place] [address] Care Team Providers Care Set Up Mechanic [employer] Name Role Phone Dr. Nicola Magana III Primary Care Provider Allergies Allergen (clinical drug ingredient) Drug/Non Drug Allergy documented on EMR Reaction Allergy Type Onset Date Status No Known Drug Allergy Unknown Drug Allergy Active Results Component Value Reference Range Notes Lipid Panel Reviewed date:02/21/2025 07:52:48 PM Interpretation: Performing Lab:[facility], [address] [place] [phone] Notes/Report: Triglycerides 101 <150 mg/dL Desirable Triglyceride: [...] low results in patients with liver disease. XR hand RT min 3V Reviewed date:10/27/2024 01:16:24 PM Interpretation: Performing Lab: Notes/Report: [facility] [address] [place] [address] [place] [id number] XRay Report Signed Patient: Bridger Castaneda MR#: [id number] : 1965 Acct:[id number] Age/Sex: 59 / M ADM Date: 10/27/24 Loc: HO.HMGCX Attending Dr: Bella Gannon [employer]SEM[employer]ING [employer] Ordering Physician: Bella Gannon NP Date of Service: 10/27/24 Procedure(s): XR hand RT min 3V Accession Number(s): [id number] cc: Nicola Magana MD; Bella Gannon NP EXAMINATION: XR HAND 3 OR MORE VIEWS RIGHT HISTORY: S69.91XA - Unspecified injury of right wrist, hand and finger(s), initial... COMPARISON: There are no prior studies available for comparison. FINDINGS: Three views of the right hand are submitted. Osseous mineralization is normal. There is no fracture or dislocation. There is mild narrowing of the 1st carpometacarpal joint. The soft tissues are unremarkable. XR/XR hand RT min 3V IMPRESSION: Mild narrowing of the 1st carpometacarpal joint. Otherwise unremarkable examination of the right hand. Electronically signed by: Nicola Marte MD 10/27/2024 11:30 AM EDT Dictated By: Nicola Marte MD Signed By: <Electronically signed by Nicola Marte MD in OV> 10/27/24 1130 DD/ 1114 TD/TT: 10/27/24 1118 Administrative Job Titles: [facility] [address] [place] [address] [place] [address] XRay Report Signed Patient: Bridger Castaneda MR#: [id number] : 1965 Acct:[id number] Age/Sex: 59 / M ADM Date: 10/27/24 Loc: HO.HMGCX Attending Dr: Jarrell Gannon [employer] Ordering Physician: Bella Gannon NP Date of Service: 10/27/24 Procedure(s): XR brady d RT min 3V Accession Number(s): [id number] cc: Nicola Magana MD; Bella Gannon NP EXAMINATION: XR HAND 3 OR MORE VIEWS RIGHT HISTORY: S69.91XA - Unspecified injury of right wrist, hand and finger(s), initial... COMPARISON: There ar e no prior studies available for comparison. FINDINGS: Three views of the right hand are submitted. Osseous mineralization is normal. There is no fracture or dislocation. There is mild narrowing of the 1st carpometacarpal joint. The soft tissues are unremarkable. XR/XR hand RT min 3V IMPRESSION: Mild narrowing of th e 1st carpometacarpal joint. Otherwise unremarkable examination of the right hand. Electronically kevyn d by: Nicola Marte MD 10/27/2024 11:30 AM EDT RP Dictated By: Nicola Marte MD Signed By: <Electronically signed by Nicola Marte MD in OV> 10/27/24 1130 DD/ 1114 TD/TT: 10/27/24 1118 Administrative Job Titles: Complete Blood Count Auto Di ff Reviewed date:01/10/2025 07:48:35 PM Interpretation: Performing Lab:[facility], [address] [place] [phone] Notes/Report: White Blood Count 6.5 4.8-10.8 X10*3/uL Red Blood Count 5.11 4.60-5.80 X10*6/uL Hemoglobin 15.3 14.0-18.0 g/dl Hematocrit 45.1 42.0-52.0 % Mean Corpuscular Volume 88.3 80.0-98.0 fL Mean Corpuscular Hemoglobin 29.9 27.0-33.0 pg Mean Corpuscular HGB Conc 33.9 31.0-36.0 g/dl Red Cell Distribution Width 12.6 11.0-16.0 % Platelet Count 154 160-400 X10*3/uL Mean Platelet Volume 10.8 9.4-12.4 fL Neutrophils Percent Auto 64.9 45-73 % Imm Gran Pct Auto 0.5 0.0-0.4 % Lymphocytes Percent Auto 24.8 20-40 % Monocytes Percent Auto 8.7 2-11 % Eosinophils Percent Auto 0.6 0-4 % Basophils Percent Auto 0.5 0-2 % NRBC Pct Auto 0.0 0.0-0.2 /100WBC Neutrophils Absolute Auto 4.2 2.0-8.3 x10*3/u L Imm Gran Abs Auto 0.03 0.00-0.03 X10*3/uL Lymphocytes Absolute Auto 1.6 1.2-4.9 X10*3/u L Monocytes Absolute Auto 0.6 0.1-1.2 X10*3/uL Eosinophils Absolute Auto 0.0 0.0-0.4 X10*3/u L Basophils Absolute Auto 0.0 0.0-0.2 X10*3/uL NRBC Abs Auto 0.000 0.0-0.012 X10*3/uL Comprehensive [place]. Panel Fa st Reviewed date:01/10/2025 07:48:35 PM Interpretation: Performing Lab:[facility], [address] [place] [phone] Notes/Report: Sodium 142 135-145 mmol/L Potassium 4.1 3.3-5.1 mmol/L Chloride 108 96-108 mmol/L Carbon Dioxide 25 22-29 mmol/L Anion Gap 13 12-20 Blood Urea Nitrogen 16 9-16 mg/dL Creatinine 0.75 0.5-1.4 mg/dL Estimated Glomerular Filt Rate > 60 Chronic Kidney Disease: Estimated GFR < 60 mL/min/1.73m2 Severe Kidney Disease: Estimated GFR < 15 mL/min/1.73m2 Glucose Fasting 84 60-99 mg/dL Calcium 9.2 8.4-10.2 mg/dL Bilirubin Total 1.0 0.0-1.0 mg/dL Aspartate Amino Transferase 22 5-37 U/L Alanine Aminotransferase 23 0-40 U/L Total Protein 6.2 6.5-8.0 g/dL Albumin Level 4.4 3.5-5.0 g/dL Alkaline Phosphatase 91 39-117 U/L Lipid Panel Reviewed date:01/10/2025 07:48:35 PM Interpretation: Performing Lab:[facility], [address] [place] [phone] Notes/Report: Triglycerides 120 <150 mg/dL Desirable Triglyceride: less than 150 mg/dL Borderline High Triglyceride 150-199 mg/dL High Triglyceride: 200-499 mg/dL Very High Triglyceride: greater than or equal to 5OO mg/dL Cholesterol 160 <200 mg/dL Desirable Cholesterol: less than 200 mg/dL Borderline High Cholesterol: 200-239 mg/dL High Cholesterol: greater than 239 mg/dL LDL Cholesterol Calculated 96 <100 mg/dL Desirable LDL: less than 100 mg/dL Near Optimal/Above Optimal LDL: 110-129 mg/dL Borderline High LDL: 130-159 mg/dL High LDL: 160-189 mg/dL Very High LDL: greater than or equal to 190 mg/dL HDL Cholesterol 40 >40 mg/dL Desirable HDL: greater than 40 mg/dL Note: This HDL assay may give artificially low results in patients with liver disease. Prostate Specific Antigen Reviewed date:01/10/2025 07:48:35 PM Interpretation: Performing Lab:[facility], [address] [place] [phone] Notes/Report: Prostate Specific Antigen 0.44 <0.05-4.0 ng/mL PSA methodology: Fam Alinity i Chemiluminescent Microparticle Immunoassay (CMIA) Complete Blood Count Auto Di ff Reviewed date:02/21/2025 07:52:48 PM Interpretation: Performing Lab:[facility], [address] [place] [phone] Notes/Report: White Blood Count 11.6 4.8-10.8 X10*3/uL Red Blood Count 5.35 4.60-5.80 X10*6/uL Hemoglobin 16.0 14.0-18.0 g/dl Hematocrit 47.5 42.0-52.0 % Mean Corpuscular Volume 88.8 80.0-98.0 fL Mean Corpuscular Hemoglobin 29.9 27.0-33.0 pg Mean Corpuscular HGB Conc 33.7 31.0-36.0 g/dl Red Cell Distribution Width 12.5 11.0-16.0 % Platelet Count 208 160-400 X10*3/uL Mean Platelet Volume 10.5 9.4-12.4 fL Neutrophils Percent Auto 72.6 45-73 % Imm Gran Pct Auto 0.6 0.0-0.4 % Lymphocytes Percent Auto 16.8 20-40 % Monocytes Percent Auto 9.2 2-11 % Eosinophils Percent Auto 0.5 0-4 % Basophils Percent Auto 0.3 0-2 % NRBC Pct Auto 0.0 0.0-0.2 /100WBC Neutrophils Absolute Auto 8.4 2.0-8.3 x10*3/u L Imm Gran Abs Auto 0.07 0.00-0.03 X10*3/uL Lymphocytes Absolute Auto 2.0 1.2-4.9 X10*3/u L Monocytes Absolute Auto 1.1 0.1-1.2 X10*3/uL Eosinophils Absolute Auto 0.1 0.0-0.4 X10*3/u L Basophils Absolute Auto 0.0 0.0-0.2 X10*3/uL NRBC Abs Auto 0.000 0.0-0.012 X10*3/uL Comprehensive [place]. Panel Fa Reviewed date:02/21/2025 07:52:48 PM Interpretation: Performing Lab:[address] [phone] Notes/Report: Sodium 144 135-145 mmol/L Potassium 4.1 3.3-5.1 mmol/L Chloride 109 96-108 mmol/L Carbon Dioxide 27 22-29 mmol/L Anion Gap 12 12-20 Blood Urea Nitrogen 26 9-16 mg/dL Creatinine 1.01 0.5-1.4 mg/dL Estimated Glomerular Filt Rate > 60 Chronic Kidney Disease: Estimated GFR < 60 mL/min/1.73m2 Severe Kidney Disease: Estimated GFR < 15 mL/min/1.73m2 Glucose Fasting 92 60-99 mg/dL Calcium 9.3 8.4-10.2 mg/dL Bilirubin Total 1.3 0.0-1.0 mg/dL Aspartate Amino Transferase 22 5-37 U/L Alanine Aminotransferase 21 0-40 U/L Total Protein 6.7 6.5-8.0 g/dL Albumin Level 4.8 3.5-5.0 g/dL Alkaline Phosphatase 93 39-117 U/L Prostate Specific Antigen Reviewed date:02/21/2025 07:52:48 PM Interpretation: Performing Lab:[facility], [address] [place] [phone] Notes/Report: Prostate Specific Antigen 0.48 <0.05-4.0 ng/mL PSA methodology: Fam Alinity i Chemiluminescent Microparticle Immunoassay (CMIA) Reason For Referral Reason Consult and Treat Chronic Diarrhea Fecal Incontinence Diagnosis 1 Chronic diarrhea (K5 2.9) Diagnosis 2 Fecal incontinence ( R15.9) Referral Organization Nicola Magana III, MD Referring Provider First Name Nicola Referring Provider Last Name [place] Referring Provider Speciality Internal M edicine Referred Provider Nicola Mandujano Referred Provider Specialty Gastroentero logy General Notes D, Vivian 02/23/2025 11:04:56 AM > Referral faxed with progress note. Referral Priority Routine Medications Medication SIG (Take, Route, Frequency, Duration) [...] eveni ng Orally Once a day Active Immunizations Vaccine [...] Problem Status W/U Status Risk Notes Problem 602953323 Overweight (E66.3) Active confirmed He has lost 10pounds. His body mass index is now 29. We have discussed a weight reduction strategy. We made plans to lose weight at a rate of one half of a pound per week. Problem Depression (700612231) Depression (F32.9) Active confirmed His sertraline was discontinued. No side effects. It then encountered. He is now involved with the [facility] [employer]. I have requested he be seen by a prescriber.I amm seeing him once a week to ensure stability. Stability is in a relationship with an appropriate mental health provider. Problem Chest pain (29507694) Chest pain (R07.9) Active confirmed He has noted some exertional chest pain accompanied by shortness of breath. A cardiac evaluation has been ordered with an EKG stress test and echocardiogram . Problem 292892777436126 Obesity (BMI 30.0-34.9) (E66.9) Active confirmed His body mass index is 30 with a poor pound weight gain. We discussed his weight loss strategy and made a plan to lose weight at a rate of one half of a pound per week. Problem 17515776 Anxiety (F41.9) Active confirmed He has complained recently of anxiety, which is why he is on the sertraline for generalized anxiety disorder. Problem 318568793 Mixed hyperlipidemia (E78.2) Active confirmed The current fasting lipid profile is in range. He has lost 10 pounds. No change in his regimen is necessary. Problem Feeling suicidal (540946803) Suicidal ideations (R45.851) Active confirmed Problem 182898303 GERD without esophagitis (K21.9) Active confirmed His reflux symptoms are well-controlle d with medication and no change in his regimen was necessary today. He is sleeping well. Problem Benign prostatic hyperplasia (340889125) BPH (benign prostatic hyperplasia) (N40.0) Active confirmed He rises from sleep once a night. We have discussed lifestyle modifications he could make to reduce nocturia. Problem 41798073 Hiatal hernia (K44.9) Active confirmed No symptoms are present lately. He will continue with current therapy. Problem 465711519 Barretts esophagus without dysplasia (K22.70) Active confirmed He has no symptoms of dysphagia reflux today. His surveillance with upper endoscopy will continue with the appropriate intervals.. Problem Bowel incontinence (04803326) Fecal incontinence (R15.9) Active confirmed Problem 2362611 Learning disability (F81.9) Active confirmed His cognitive functions and bodily habitus, have remained stable. [facility] [employer] has placed him in a fdc house. He lives with his mother. He says he is very happy there. Problem 504415274192 Daytime somnolence (R40.0) Active confirmed I have ordered a sleep study to evaluate him for sleep apnea. 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 Range of motion was intact in free of pain. 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 If I cannot get one from old records. I will to a tracing in the office. He is asymptomatic at this time. Vital Signs Heart Rate 88 /min 04/06/2025 Temperature 98.2 degrees Fahrenheit 04/06/2025 Respiratory Rate 16 /min 08/13/2024 Blood pressure diastolic 86 mm Hg 04/06/2025 Height 70 in 04/06/2025 Blood pressure systolic 121 mm Hg 04/06/2025 Weight 205 lbs 04/06/2025 BMI 29.41 kg/m2 04/06/2025 Encounters Encounter Location Date Provider Diagnosis Nicola Magana III, MD [address] [place] [address] [address], [place] [phone] 08/13/2024 Nicola Magana Learning disability F81.9 ; Mixed hyperlipidemia E78.2 ; BPH (benign prostatic hyperplasia) N40.0 ; Overweight E66.3 ; GERD without esophagitis K21.9 ; Barretts esophagus without dysplasia K22.70 and Spondylosis of cervical region without myelopathy or radiculopathy M47.812 Nicola Magana III, MD [address] [place] [address] [place] [phone] 02/20/2025 Nicola Magana Overweight E66.3 ; M ixed hyperlipidemia E78.2 ; History of Mdinl-Voznhdtol-Usiui (WPW) syndrome Z86.79 ; Spondylosis of cervical region without myelopathy or radiculopathy M47.812 ; Hiatal hernia K44.9 ; GERD without esophagitis K21.9 ; Depression F32.9 and Barretts esophagus without dysplasia K22.70 Nicola Magana III, MD [address] [place] [address] [place] [phone] 04/06/2025 Nicola Magnaa Learning disability F81.9 ; Overweight E66.3 ; Mixed hyperlipidemia E78.2 ; History of Govzj-Jtmhnxgnc-Htsgf (WPW) syndrome Z86.79 ; Spondylosis of cervical region without myelopathy or radiculopathy M47.812 ; Hiatal hernia K44.9 ; GERD without esophagitis K21.9 ; Barretts esophagus without dysplasia K22.70 and BPH (benign prostatic hyperplasia) N40.0 Nicola Magana III, MD [address] [place] [address] [place] [address] 06/23/2024 Nicola Magana III, MD [address] [place] [address] [place] [phone] 06/23/2024 Nicola Magana III, MD [address] [place] [address] [place] [phone] 06/24/2024 Nicola Magana III, MD [address] [place] [address] [place] [phone] 07/08/2024 Nicola Magana Assessments Encounter Date Diagnosis (ICD Code) Assessment Notes Treat ment Notes Treatment Clinical Notes 08/13/2024 Mixed hyperlipidemia (ICD-10 - E78.2) He has gained weight. No current fasting lipids are available. I have ordered a profile to be done prior to next visit. No change in his regimen was necessary. 08/13/2024 Learning disability (ICD-10 - F81.9) His cognitive functions and bodily habitus, have remained stable. The [facility] [employer] has placed him in a fdc house. He lives with his mother. He says he is very happy there. 02/20/2025 Overweight (ICD-10 - E66.3) He has [...] change in his regimen is necessary. 04/06/2025 Overweight (ICD-10 - E66.3) He has lost 10pounds. His body mass index is now 29. We have discussed a weight reduction strategy. We made plans to lose weight at a rate of one half of a pound per week. 04/06/2025 Learning disability (ICD-10 - F81.9) His cognitive functions and bodily habitus, have remained stable. The [facility] [employer] has placed him in a fdc house. He lives with his mother. He says he is very happy there. 08/13/2024 BPH (benign prostati c hyperplasia) (ICD-10 - N40.0) He rises from sleep once a night. We have discussed lifestyle modifications he could make to reduce nocturia. 02/20/2025 History of Rbxvy-Tyxthpejl-Unfmc (WPW) syndrome (ICD-10 - Z86.79) I do not have an EKG tracing. If I cannot get one from old records. I will to a tracing in the office. He is asymptomatic at this time. 04/06/2025 Mixed hyperlipidemia (ICD-10 - E78.2) The current fasting lipid profile is in range. He has lost 10 pounds. No change in his regimen is necessary. 08/13/2024 Overweight (ICD-10 - E66.3) He has gained 8 pounds. His body mass index is now 31.18. We have discussed a weight reduction strategy. We made plans to lose weight at a rate of one half of a pound per week. 02/20/2025 Spondylosis of cervical region without myelopathy or radiculopathy (ICD-10 - M47.812) The pain in his arms does not appear to radiate from the neck. Range of motion was intact in free of pain. 04/06/2025 History of Mcjil-Xanlpwisj-Dfvsn (WPW) syndrome (ICD-10 - Z86.79) I do not have an EKG tracing. If I cannot get one from old records. I will to a tracing in the office. He is asymptomatic at this time. 08/13/2024 GERD without esophagitis (ICD-10 - K21.9) His reflux symptoms are well-controlled with medication and no change in his regimen was necessary today. He is sleeping well. 02/20/2025 Hiatal hernia (ICD-1 0 - K44.9) No symptoms are present lately. He will continue with current therapy. 04/06/2025 Spondylosis of cervical region without myelopathy or radiculopathy (ICD-10 - M47.812) The pain in his arms does not appear to radiate from the neck. Range of motion was intact in free of pain. 08/13/2024 Barretts esophagus without dysplasia (ICD-10 - K22.70) He has no symptoms of dysphagia reflux today. His surveillance with upper endoscopy will continue with the appropriate intervals.. 02/20/2025 GERD without esophagitis (ICD-10 - K21.9) His reflux symptoms are well-controlled with medication and no change in his regimen was necessary today. He is sleeping well. 04/06/2025 Hiatal hernia (ICD-1 0 - K44.9) No symptoms are present lately. He will continue with current therapy. 08/13/2024 Spondylosis of cervical region without myelopathy or radiculopathy (ICD-10 - M47.812) The pain in his arms does not appear to radiate from the neck. Range of motion was intact in free of pain. 02/20/2025 Depression (ICD-10 - F32.9) His sertraline was discontinued. No side effects. It then encountered. [facility] I have requested he be seen by a prescriber.I amm seeing him once a week to ensure stability. Stability is in a relationship with an appropriate mental health provider. 04/06/2025 GERD without esophagitis (ICD-10 - K21.9) His reflux symptoms are well-controlled with medication and no change in his regimen was necessary today. He is sleeping well. 02/20/2025 Barretts esophagus without dysplasia (ICD-10 - K22.70) He has no symptoms of dysphagia reflux today. His surveillance with upper endoscopy will continue with the appropriate intervals.. 04/06/2025 Barretts esophagus without dysplasia (ICD-10 - K22.70) He has no symptoms of dysphagia reflux today. His surveillance with upper endoscopy will continue with the appropriate intervals.. 04/06/2025 BPH (benign prostati c hyperplasia) (ICD-10 - N40.0) He rises from sleep once a night. We have discussed lifestyle modifications he could make to reduce nocturia. Plan Of Treatment Pending Test Test Name Order Date PROFILE, FASTING (COMPREHENSIVE METABOLI C) 03/31/2019 PROFILE, FASTING (COMPREHENSIVE METABOLI C) 03/09/2020 PROFILE, FASTING (COMPREHENSIVE METABOLI C) 02/13/2018 PROFILE, FASTING (COMPREHENSIVE METABOLI C) 09/07/2021 PROFILE, FASTING (COMPREHENSIVE METABOLI C) 11/26/2018 PROFILE, FASTING (COMPREHENSIVE METABOLI C) 02/20/2025 PROFILE, FASTING (COMPREHENSIVE METABOLI C) 09/06/2020 PROFILE, FASTING (COMPREHENSIVE METABOLI C) 08/13/2024 PROFILE, FASTING (COMPREHENSIVE METABOLI C) 07/22/2018 PROFILE, RANDOM (COMPREHENSIVE METABOLIC ) 08/01/2019 PROFILE, RANDOM (COMPREHENSIVE METABOLIC ) 12/05/2019 LIPID PANEL 08/13/2024 LIPID PANEL 07/22/2018 LIPID PANEL 08/01/2019 LIPID PANEL 03/31/2019 LIPID PANEL 03/09/2020 LIPID PANEL 02/13/2018 LIPID PANEL 11/26/2018 LIPID PANEL 12/05/2019 LIPID PANEL 09/06/2020 FREE T4 (FT4) 09/07/2021 TSH (THYROID STIMULATING HORMONE) 2021 PSA, TOTAL 08/13/2024 PSA, TOTAL 09/07/2021 PSA, TOTAL 02/20/2025 CBC w DIFF 09/07/2021 CBC w DIFF 02/20/2025 CBC w DIFF 09/06/2020 CBC w DIFF 07/22/2018 CBC w DIFF 08/01/2019 CBC w DIFF 03/31/2019 CBC w DIFF 08/13/2024 CBC w DIFF 03/09/2020 CBC w DIFF 02/13/2018 CBC w DIFF 11/26/2018 CBC w DIFF 12/05/2019 XR KNEE RT 4 VIEWS 03/31/2019 XR LOWER LEG RT 03/31/2019 XR LUMBAR SPINE 4+ VIEWS 06/26/2018 Echocardiogram 10/23/2023 Lipid Panel 09/07/2021 ECG 12 lead EKG 03/28/2023 Exercise Stress Test 10/23/2023 Next Appt Details Provider Name:Nicola Magana , 08/19/2025 11:00:00 AM, [address] [place] [address] , [address], [place], [address], Insurance Providers Payer Name Payer Address Payer Phone Subscriber Number Group Number Insured Name Patient Relationship to Insured Coverage Start Date Coverage End Date MEDICARE NGS [address] [place] [address] [id number] Giofacundo Bridger qureshi Self - patient is the insured MEDICA[place] [address] [place] [id number] Bridger Ramachandran Self - patient is the [...] trouble with exercise. Surgical History Surgery Date(Month/Year) No history esophagogastric duodenoscopy , [facility], Dr. 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 Pulido 2003 tonsillectomy and adenoidectomy 1975 Hospitalization History Reason Date(Month/Year) No history
== END 2025-05-01 11:20 | disposition home or self-care (01) ==
PROVIDERS: PCP Internal Medicine Medical Oncology; Visit Provider Internal Medicine Pulmonary Disease
DX: G47.33 Obstructive sleep apnea (adult) (pediatric) (principal); R05.9 Cough, unspecified
CPT/HCPCS: 99213

== ENCOUNTER → 2025-05-01 10:18 | Outpatient (BNVA) | payer MEDICARE, MEDICAID, SELFPAY | PROVIDERS: PCP Internal Medicine Medical Oncology; Visit Provider Internal Medicine Pulmonary Disease | DX: G47.33 Obstructive sleep apnea (adult) (pediatric) (principal); R05.9 Cough, unspecified | CPT/HCPCS: 99212 ==